=== PATIENT | male | born 1950 | race Caucasian/White ===

== ENCOUNTER 2018-11-03 17:04 | Inpatient (IN) | payer MEDICARE ==
[~2018-11-03] VITALS: Ht 172.7 cm; Wt 73.7 kg
[2018-11-03] MEDS ORDERED: DOCU100C28 PO (19:54)
[2018-11-03] MEDS ORDERED: LATA2.5D3 OS (19:54)
[2018-11-03] MEDS ORDERED: CHLO100T6 PO (19:54)
[2018-11-03] MEDS ORDERED: ASPI-630 PO (19:54)
[2018-11-03] MEDS ORDERED: OLAN5TAB9 PO (19:54)
[2018-11-03] MEDS ORDERED: TIMO10DR5 EACHEYE (19:54)
[2018-11-03] MEDS ORDERED: CHLO25TA4 PO (19:54)
[2018-11-03] MEDS ORDERED: SUCR1TAB35 PO (19:54)
[2018-11-03] MEDS ORDERED: POLY17PO5 PO (19:54)
[2018-11-03] MEDS ORDERED: OMEP20TA63 PO (19:54)
[2018-11-03] MEDS ORDERED: TAMS0.4C2 PO (19:54)
[2018-11-03] MEDS ORDERED: SENN-80 PO (19:54)
[2018-11-03] MEDS ORDERED: LEVE500T56 PO (19:54)
[2018-11-03] MEDS ORDERED: METO25TA2 PO (19:54)
[2018-11-03] MEDS ORDERED: LISI10TA2 PO (19:54)
[2018-11-03] MEDS ORDERED: TRAZ-85 PO (19:54)
[2018-11-03] MEDS ORDERED: PARO20TA99 PO (19:54)
[2018-11-03] MEDS ORDERED: ATOR20TA PO (19:54)
[2018-11-03] MEDS ORDERED: MAG HYDROX/AL HYDROX/SIMETH 30 ML ORAL.SUSP PO PRN (20:00)
[2018-11-03] MEDS ORDERED: MAGNESIUM HYDROXIDE 2,400 MG/30 ML ORAL.SUSP. PO PRN (20:00)
[2018-11-03] MEDS ORDERED: METHYL SALICYLATE/MENTHOL TOPICAL OINTMENT 29GM TUBE. TP PRN (20:00)
[2018-11-03] MEDS ORDERED: ACETAMINOPHEN 325 MG TABLET PO PRN (20:00)
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
[2018-11-03] MEDS ORDERED: traZODone 50 MG TABLET. PO PRN (20:15)
[2018-11-03] MEDS: OLANZapine 5 MG TABLET PO SCH (20:36)
[2018-11-03] MEDS: ATORVASTATIN CALCIUM 20 MG TABLET PO SCH (20:36)
[2018-11-03] MEDS: levETIRAcetam 500 MG TABLET PO SCH (20:36)
[2018-11-03] MEDS: SUCRALFATE 1 GM TABLET. PO SCH (20:36)
[2018-11-03] MEDS: DOCUSATE SODIUM 100 MG CAPSULE PO SCH (20:36)
[2018-11-03 20:41] LABS: BASO # 0.1 x10^3/uL (0.0-0.2); BASO % 1 % (0-3); EOS # 0.2 x10^3/uL (0.0-0.7); EOS % 3 % (0-3); HEMATOCRIT 39.8 % (39.0-53.0); HEMOGLOBIN 14.1 g/dL (13.0-17.5); LYMPH # 1.6 x10^3/uL (1.0-4.8); LYMPH % 26 % (24-48); MEAN CORPUSCULAR HEMOGLOBIN 34 pg (25-35); MEAN CORPUSCULAR HGB CONC 36 g/dL (31-37); MEAN CORPUSCULAR VOLUME 95 fL (79-100); MONO # 0.6 x10^3/uL (0.0-1.1); MONO % 9 % (0-9); NEUT # 3.8 x10^3uL (1.8-7.7); NEUT % 61 % (31-73); PLATELET COUNT 189 x10^3/uL (140-400); RED BLOOD COUNT 4.18 x10^6/uL (4.30-5.70); RED CELL DISTRIBUTION WIDTH 13.3 % (11.5-14.5); WHITE BLOOD COUNT 6.2 x10^3/uL (4.0-11.0)
[2018-11-03 20:55] LABS: ALBUMIN 2.9 g/dL (3.4-5.0); ALBUMIN/GLOBULIN RATIO 0.9 (1.0-1.7); CALCIUM 8.4 mg/dL (8.5-10.1); CREATININE 0.7 mg/dL (0.7-1.3); GFR 112.1; POTASSIUM 4.1 mmol/L (3.5-5.1); TOTAL BILIRUBIN 0.6 mg/dL (0.2-1.0)
[2018-11-03] MEDS: LATANOPROST 0.005% OPHTH SOLUTION 2.5ML BOTTLE. OS SCH (21:11)
[2018-11-03] MEDS: TIMOLOL 0.5% OPHTH SOLUTION 5ML BOTTLE. OU SCH (21:11)
[2018-11-03] MEDS: chlorproMAZINE HCL 25 MG TABLET PO SCH (21:12)
--- NOTE | 2018-11-03 22:42 | PDOC ---
Exam Note: Shahram Note: Please also refer to the separate dictated note~for this date of service dictated separately. Discussed the patient with Nursing staff reviewed the chart.~Reviewed interim history and current functioning. Reviewed vital signs,~ Labs/ Radiology~and current medications noted below. Continue current treatment with the changes noted in the dictated addendum note Assessment: Labs: Laboratory Tests Test 11/03/18 20:20 White Blood Count 6.2 x10^3/uL (4.0-11.0) Red Blood Count 4.18 x10^6/uL (4.30-5.70) L Hemoglobin 14.1 g/dL (13.0-17.5) Hematocrit 39.8 % (39.0-53.0) Mean Corpuscular Volume 95 fL (79-100) Mean Corpuscular Hemoglobin 34 pg (25-35) Mean Corpuscular Hemoglobin Concent 36 g/dL (31-37) Red Cell Distribution Width 13.3 % (11.5-14.5) Platelet Count 189 x10^3/uL (140-400) Neutrophils (%) (Auto) 61 % (31-73) Lymphocytes (%) (Auto) 26 % (24-48) Monocytes (%) (Auto) 9 % (0-9) Eosinophils (%) (Auto) 3 % (0-3) Basophils (%) (Auto) 1 % (0-3) Neutrophils # (Auto) 3.8 x10^3uL (1.8-7.7) Lymphocytes # (Auto) 1.6 x10^3/uL (1.0-4.8) Monocytes # (Auto) 0.6 x10^3/uL (0.0-1.1) Eosinophils # (Auto) 0.2 x10^3/uL (0.0-0.7) Basophils # (Auto) 0.1 x10^3/uL (0.0-0.2) Sodium Level 137 mmol/L (136-145) Potassium Level 4.1 mmol/L (3.5-5.1) Chloride Level 100 mmol/L (98-107) Carbon Dioxide Level 30 mmol/L (21-32) Anion Gap 7 (6-14) Blood Urea Nitrogen 12 mg/dL (8-26) Creatinine 0.7 mg/dL (0.7-1.3) Estimated GFR (Cockcroft-Gault) 112.1 BUN/Creatinine Ratio 17 (6-20) Glucose Level 108 mg/dL (70-99) H Calcium Level 8.4 mg/dL (8.5-10.1) L Magnesium Level 2.0 mg/dL (1.8-2.4) Total Bilirubin 0.6 mg/dL (0.2-1.0) Aspartate Amino Transferase (AST) 17 U/L (15-37) Alanine Aminotransferase (ALT) 23 U/L (16-63) Alkaline Phosphatase 65 U/L (46-116) Total Protein 6.0 g/dL (6.4-8.2) L Albumin 2.9 g/dL (3.4-5.0) L Albumin/Globulin Ratio 0.9 (1.0-1.7) L Current Medications: Meds: Current Medications Atorvastatin Calcium (Lipitor) 20 mg QHS PO Last administered on 11/03/18 20:36 ; Start 11/03/18 at 21:00 Chlorpromazine HCl (Thorazine) 25 mg TIDWMEALS PO ; Start 11/04/18 at 08:00 Lisinopril (Prinivil) 10 mg DAILY PO ; Start 11/04/18 at 09:00 Metoprolol Succinate (Toprol Xl) 25 mg DAILY PO ; Start 11/04/18 at 09:00 Tamsulosin HCl (Flomax) 0.4 mg DAILY PO ; Start 11/04/18 at 09:00 Aspirin (Children'S Aspirin) 81 mg DAILYWBKFT PO ; Start 11/04/18 at 08:00 Chlorpromazine HCl (Thorazine) 100 mg QHS PO Last administered on 11/03/18at 21: 12; Start 11/03/18 at 21:00 Docusate Sodium (Colace) 100 mg BID PO Last administered on 11/03/18 20:36; Start 11/03/18 at 21:00 Latanoprost (Xalatan) 1 drop QHS OS Last administered on 11/03/18 21:11; Start 11/03/18 at 21:00 Levetiracetam (Keppra) 500 mg BID PO Last administered on 11/03/18at 20:36; Start 11/03/18 at 21:00 Olanzapine (ZyPREXA) 5 mg BID PO Last administered on 11/03/18at 20:36; Start 11/03/18 at 21:00 Pantoprazole Sodium (Protonix) 40 mg DAILYAC PO ; Start 11/04/18 at 07:30 Paroxetine HCl (Paxil) 20 mg DAILY PO ; Start 11/04/18 at 09:00 Polyethylene Glycol (miraLAX) 17 gm DAILY PO ; Start 11/04/18 at 09:00 Sennosides (Senna) 8.6 mg DAILY PO ; Start 11/04/18 at 09:00 Sucralfate (Carafate) 1 gm QID PO Last administered on 11/03/18at 20:36; Start at 21:00 Timolol Maleate (Timoptic 0.5% [facility]) 1 drop BID OU Last administered on at 21:11; Start 11/03/18 at 21:00 Trazodone HCl (Desyrel) 50 mg PRN QHS PRN PO INSOMNIA; Start 11/03/18 at 20:15 Acetaminophen (Tylenol) 650 mg PRN Q6HRS PRN PO PAIN / TEMP; Start 11/03/18 at 20:00 Multi-Ingredient Ointment (Analgesic [place]) 1 avni PRN QID PRN TP MUSCLE PAIN; Start 11/03/18 at 20:00 Al Hydroxide/Mg Hydroxide (Mylanta Plus Xs) 15 ml PRN AFTMEALHC PRN PO DYSPEPSIA; Start 11/03/18 at 20:00 Magnesium Hydroxide (Milk Of Magnesia) 2,400 mg PRN QHS PRN PO CONSTIPATION; Start 11/03/18 at 20:00 Active Scripts Active Reported Trazodone Hcl 50 Mg Tablet 50 Mg PO PRN QHS PRN Timoptic (Timolol Maleate) 10 Ml Drops 1 Drop EACHEYE BID Tamsulosin Hcl 0.4 Mg Cap.er.24h 0.4 Mg PO DAILY Carafate (Sucralfate) 1 Gm Tablet 1 Gm PO QID Senna (Sennosides) 8.6 Mg Tablet 8.6 Mg PO DAILY Miralax (Polyethylene Glycol 3350) 17 Gm Powd.pack 1 Packet PO DAILY Paxil (Paroxetine Hcl) 20 Mg Tablet 20 Mg PO DAILY Prilosec Otc (Omeprazole Magnesium) 20 Mg Tablet.dr 40 Mg PO DAILY Olanzapine 5 Mg Tablet 5 Mg PO BID Toprol Xl (Metoprolol Succinate) 25 Mg Tab.er.24h 25 Mg PO DAILY Lisinopril 10 Mg Tablet 10 Mg PO DAILY Keppra (Levetiracetam) 500 Mg Tablet 500 Mg PO BID Latanoprost 2.5 Ml Drops 1 Drop OS QHS Docusate Sodium 100 Mg Capsule 100 Mg PO BID Chlorpromazine Hcl 100 Mg Tablet 100 Mg PO HS Chlorpromazine Hcl 25 Mg Tablet 25 Mg PO TIDWMEALS Lipitor (Atorvastatin Calcium) 20 Mg Tablet 20 Mg PO QHS Aspirin 81 Mg Tab.chew 81 Mg PO DAILY I have reviewed the current psychotropics carefully including drug interactions. Risk benefit ratio favors no change other than as noted in my dictated progress note. Diagnosis: Problems: (1) Anxiety disorder (2) Bipolar affective disorder, mixed (3) Major depressive disorder, recurrent episode (4) Mild cognitive impairment ANASTACIO REED MD Nov 03, 2018 22:42
[2018-11-03 23:02] VITALS: BP 96/61
[2018-11-04 06:35] VITALS: BP 106/70
[2018-11-04] MEDS ORDERED: PANTOPRAZOLE 40 MG TABLET. PO SCH (07:30)
[2018-11-04] MEDS: DOCUSATE SODIUM 100 MG CAPSULE PO SCH ×2 (08:15→21:32)
[2018-11-04] MEDS: SUCRALFATE 1 GM TABLET. PO SCH ×4 (08:15→21:33)
[2018-11-04] MEDS: levETIRAcetam 500 MG TABLET PO SCH ×2 (08:15→21:33)
[2018-11-04] MEDS: OLANZapine 5 MG TABLET PO SCH ×2 (08:15→21:33)
[2018-11-04] MEDS: TIMOLOL 0.5% OPHTH SOLUTION 5ML BOTTLE. OU SCH ×2 (08:15→21:33)
[2018-11-04] MEDS: TAMSULOSIN 0.4 MG CAP.ER.24H. PO SCH (08:20)
[2018-11-04] MEDS: METOPROLOL SUCC 24HR ER 25 MG TAB.ER.24H. PO SCH (08:20)
[2018-11-04] MEDS: chlorproMAZINE HCL 25 MG TABLET PO SCH ×4 (08:20→21:31)
[2018-11-04] MEDS: ASPIRIN 81 MG TAB.CHEW PO SCH (08:20)
[2018-11-04] MEDS: POLYETHYLENE GLYCOL 3350 17 GM PACKET. PO SCH (08:23)
[2018-11-04] MEDS: PARoxetine 20 MG TABLET PO SCH (08:23)
[2018-11-04] MEDS: LISINOPRIL 10 MG TABLET PO SCH (08:23)
[2018-11-04] MEDS: SENNOSIDES 8.6 MG TABLET PO SCH (08:24)
[2018-11-04 10:22] LABS: THYROID STIM HORMONE (TSH) 1.039 uIU/mL (0.358-3.740)
[2018-11-04 11:10] LABS: THYROXINE 5.9 ug/dL (4.5-12.0)
[2018-11-04 16:49] VITALS: BP 85/55
[2018-11-04] MEDS: ATORVASTATIN CALCIUM 20 MG TABLET PO SCH (21:32)
[2018-11-04] MEDS: LATANOPROST 0.005% OPHTH SOLUTION 2.5ML BOTTLE. OS SCH (21:34)
--- NOTE | 2018-11-04 22:02 | PDOC ---
Exam Note: Shahram Note: Please also refer to the separate dictated note~for this date of service dictated separately.~Patient seen individually. Discussed the patient with Nursing staff reviewed the chart.~Reviewed interim history and current functioning. Reviewed vital signs,~Labs/ Radiology~and current medications noted below. Continue current treatment with the changes noted in the dictated addendum note Assessment: Vital Signs: Vital Signs Date Time Temp Pulse Resp B/P (MAP) Pulse Ox O2 Delivery O2 Flow Rate FiO2 11/04/18 16:49 97.6 76 20 85/55 (65) 95 11/04/18 06:35 Room Air I&O Intake and Output 11/04/18 07:01 Output Total 600 ml Balance -600 ml Output Urine Total 600 ml Current Medications: Meds: Current Medications Atorvastatin Calcium (Lipitor) 20 mg QHS PO Last administered on 11/04/18 21:32 ; Start 11/03/18 at 21:00 Chlorpromazine HCl (Thorazine) 25 mg TIDWMEALS PO Last administered on 18:05; Start 11/04/18 at 08:00 Lisinopril (Prinivil) 10 mg DAILY PO Last administered on 11/04/18 08:23; Start 11/04/18 at 09:00 Metoprolol Succinate (Toprol Xl) 25 mg DAILY PO Last administered on 11/04/18 08:20; Start 11/04/18 at 09:00 Tamsulosin HCl (Flomax) 0.4 mg DAILY PO Last administered on 11/04/18 08:20; Start 11/04/18 at 09:00 Aspirin (Children'S Aspirin) 81 mg DAILYWBKFT PO Last administered on 11/04/18 08:20; Start 11/04/18 at 08:00 Chlorpromazine HCl (Thorazine) 100 mg QHS PO Last administered on 11/04/18 21: 31; Start 11/03/18 at 21:00 Docusate Sodium (Colace) 100 mg BID PO Last administered on 11/04/18 21:32; Start 11/03/18 at 21:00 Latanoprost (Xalatan) 1 drop QHS OS Last administered on 11/04/18 21:34; Start 11/03/18 at 21:00 Levetiracetam (Keppra) 500 mg BID PO Last administered on 11/04/18 21:33; Start 11/03/18 at 21:00 Olanzapine (ZyPREXA) 5 mg BID PO Last administered on 11/04/18 21:33; Start 11/03/18 at 21:00 Pantoprazole Sodium (Protonix) 40 mg DAILYAC PO Last administered on 11/04/18 08:23; Start 11/04/18 at 07:30; Stop 11/04/18 at 10:39; Status DC Paroxetine HCl (Paxil) 20 mg DAILY PO Last administered on 11/04/18 08:23; Start 11/04/18 at 09:00 Polyethylene Glycol (miraLAX) 17 gm DAILY PO Last administered on 11/04/18 08: 23; Start 11/04/18 at 09:00 Sennosides (Senna) 8.6 mg DAILY PO Last administered on 11/04/18 08:24; Start 11/04/18 at 09:00 Sucralfate (Carafate) 1 gm QID PO Last administered on 11/04/18 18:05; Start at 21:00; Stop 11/04/18 at 18:07; Status DC Timolol Maleate (Timoptic 0.5% [facility]) 1 drop BID OU Last administered on 21:33; Start 11/03/18 at 21:00 Trazodone HCl (Desyrel) 50 mg PRN QHS PRN PO INSOMNIA; Start 11/03/18 at 20:15 Acetaminophen (Tylenol) 650 mg PRN Q6HRS PRN PO PAIN / TEMP Last administered on 11/04/18at 13:31; Start 11/03/18 at 20:00 Multi-Ingredient Ointment (Analgesic [place]) 1 avni PRN QID PRN TP MUSCLE PAIN; Start 11/03/18 at 20:00 Al Hydroxide/Mg Hydroxide (Mylanta Plus Xs) 15 ml PRN AFTMEALHC PRN PO DYSPEPSIA; Start 11/03/18 at 20:00 Magnesium Hydroxide (Milk Of Magnesia) 2,400 mg PRN QHS PRN PO CONSTIPATION; Start 11/03/18 at 20:00 Influenza Virus Vaccine (Afluria Trivalent [id number] Syringe) 0.5 ml ONCE ONCE VAX IM ; Start 11/04/18 at 09:00; Stop 11/04/18 at 09:01; Status Cancel Pantoprazole Sodium (Protonix) 40 mg DAILY06 PO ; Start 11/05/18 at 06:00 Neomycin/ Polymyxin/ Bacitracin (Triple Antibiotic) 1 avni TID TP ; Start at 09:00 Sucralfate (Carafate) 1 gm QIDACHS PO Last administered on 11/04/18at 21:33; Start 11/04/18 at 21:00 Active Scripts Active Reported Trazodone Hcl 50 Mg Tablet 50 Mg PO PRN QHS PRN Timoptic (Timolol Maleate) 10 Ml Drops 1 Drop EACHEYE BID Tamsulosin Hcl 0.4 Mg Cap.er.24h 0.4 Mg PO DAILY Carafate (Sucralfate) 1 Gm Tablet 1 Gm PO QID Senna (Sennosides) 8.6 Mg Tablet 8.6 Mg PO DAILY Miralax (Polyethylene Glycol 3350) 17 Gm Powd.pack 1 Packet PO DAILY Paxil (Paroxetine Hcl) 20 Mg Tablet 20 Mg PO DAILY Prilosec Otc (Omeprazole Magnesium) 20 Mg Tablet.dr 40 Mg PO DAILY Olanzapine 5 Mg Tablet 5 Mg PO BID Toprol Xl (Metoprolol Succinate) 25 Mg Tab.er.24h 25 Mg PO DAILY Lisinopril 10 Mg Tablet 10 Mg PO DAILY Keppra (Levetiracetam) 500 Mg Tablet 500 Mg PO BID Latanoprost 2.5 Ml Drops 1 Drop OS QHS Docusate Sodium 100 Mg Capsule 100 Mg PO BID Chlorpromazine Hcl 100 Mg Tablet 100 Mg PO HS Chlorpromazine Hcl 25 Mg Tablet 25 Mg PO TIDWMEALS Lipitor (Atorvastatin Calcium) 20 Mg Tablet 20 Mg PO QHS Aspirin 81 Mg Tab.chew 81 Mg PO DAILY I have reviewed the current psychotropics carefully including drug interactions. Risk benefit ratio favors no change other than as noted in my dictated progress note. Diagnosis: Problems: (1) Anxiety disorder (2) Bipolar affective disorder, mixed (3) Major depressive disorder, recurrent episode (4) Mild cognitive impairment ANASTACIO REED MD Nov 04, 2018 22:02
[2018-11-05] MEDS: PANTOPRAZOLE 40 MG TABLET. PO SCH (06:00)
[2018-11-05 06:52] VITALS: BP 112/74
[2018-11-05] MEDS: ASPIRIN 81 MG TAB.CHEW PO SCH (07:55)
[2018-11-05] MEDS: SENNOSIDES 8.6 MG TABLET PO SCH (07:55)
[2018-11-05] MEDS: TAMSULOSIN 0.4 MG CAP.ER.24H. PO SCH (07:55)
[2018-11-05] MEDS: POLYETHYLENE GLYCOL 3350 17 GM PACKET. PO SCH (07:55)
[2018-11-05] MEDS: DOCUSATE SODIUM 100 MG CAPSULE PO SCH ×2 (07:55→19:30)
[2018-11-05] MEDS: SUCRALFATE 1 GM TABLET. PO SCH ×4 (07:55→19:30)
[2018-11-05] MEDS: METOPROLOL SUCC 24HR ER 25 MG TAB.ER.24H. PO SCH (07:56)
[2018-11-05] MEDS: PARoxetine 20 MG TABLET PO SCH (07:56)
[2018-11-05] MEDS: LISINOPRIL 10 MG TABLET PO SCH (07:56)
[2018-11-05] MEDS: levETIRAcetam 500 MG TABLET PO SCH ×2 (07:56→19:30)
[2018-11-05] MEDS: OLANZapine 5 MG TABLET PO SCH ×2 (07:56→19:30)
[2018-11-05] MEDS: TIMOLOL 0.5% OPHTH SOLUTION 5ML BOTTLE. OU SCH ×2 (07:57→19:32)
[2018-11-05] MEDS: chlorproMAZINE HCL 25 MG TABLET PO SCH ×4 (07:57→19:34)
[2018-11-05] MEDS: NEOMYCIN/BACITRAC/POLY TOPICAL OINTMENT 28GM TUBE. TP SCH ×3 (09:00→19:34)
[2018-11-05] MEDS: LORazepam 0.5 MG TABLET PO PRN (09:53)
[2018-11-05 17:06] VITALS: BP 112/69
[2018-11-05] MEDS: ATORVASTATIN CALCIUM 20 MG TABLET PO SCH (19:30)
[2018-11-05] MEDS: LATANOPROST 0.005% OPHTH SOLUTION 2.5ML BOTTLE. OS SCH (19:32)
[2018-11-05] MEDS: cloZAPine 25 MG TABLET PO SCH (19:49)
--- NOTE | 2018-11-05 22:49 | PDOC ---
Exam Note: Shahram Note: Please also refer to the separate dictated note~for this date of service dictated separately.~Patient seen individually. Discussed the patient with Nursing staff reviewed the chart.~Reviewed interim history and current functioning. Reviewed vital signs,~Labs/ Radiology~and current medications noted below. Continue current treatment with the changes noted in the dictated addendum note Assessment: Vital Signs: Vital Signs Date Time Temp Pulse Resp B/P (MAP) Pulse Ox O2 Delivery O2 Flow Rate FiO2 11/05/18 17:06 97.9 90 20 112/69 (83) 97 11/05/18 06:52 Room Air I&O Intake and Output 11/05/18 07:01 Intake Total 1325 ml Balance 1325 ml Intake Oral 1325 ml Current Medications: Meds: Current Medications Atorvastatin Calcium (Lipitor) 20 mg QHS PO Last administered on 11/05/18 19: 30; Start 11/03/18 at 21:00 Chlorpromazine HCl (Thorazine) 25 mg TIDWMEALS PO Last administered on 17:46; Start 11/04/18 at 08:00 Lisinopril (Prinivil) 10 mg DAILY PO Last administered on 11/05/18 07:56; Start 11/04/18 at 09:00 Metoprolol Succinate (Toprol Xl) 25 mg DAILY PO Last administered on 11/05/18 07:56; Start 11/04/18 at 09:00 Tamsulosin HCl (Flomax) 0.4 mg DAILY PO Last administered on 11/05/18 07:55; Start 11/04/18 at 09:00 Aspirin (Children'S Aspirin) 81 mg DAILYWBKFT PO Last administered on 07:55; Start 11/04/18 at 08:00 Chlorpromazine HCl (Thorazine) 100 mg QHS PO Last administered on 11/05/18 19: 34; Start 11/03/18 at 21:00 Docusate Sodium (Colace) 100 mg BID PO Last administered on 11/05/18 19:30; Start 11/03/18 at 21:00 Latanoprost (Xalatan) 1 drop QHS OS Last administered on 11/05/18 19:32; Start 11/03/18 at 21:00 Levetiracetam (Keppra) 500 mg BID PO Last administered on 11/05/18 19:30; Start 11/03/18 at 21:00 Olanzapine (ZyPREXA) 5 mg BID PO Last administered on 11/05/18 19:30; Start at 21:00 Pantoprazole Sodium (Protonix) 40 mg DAILYAC PO Last administered on 11/04/18 08:23; Start 11/04/18 at 07:30; Stop 11/04/18 at 10:39; Status DC Paroxetine HCl (Paxil) 20 mg DAILY PO Last administered on 11/05/18 07:56; Start 11/04/18 at 09:00 Polyethylene Glycol (miraLAX) 17 gm DAILY PO Last administered on 11/05/18 07: 55; Start 11/04/18 at 09:00 Sennosides (Senna) 8.6 mg DAILY PO Last administered on 11/05/18 07:55; Start 11/04/18 at 09:00 Sucralfate (Carafate) 1 gm QID PO Last administered on 11/04/18 18:05; Start at 21:00; Stop 11/04/18 at 18:07; Status DC Timolol Maleate (Timoptic 0.5% [facility]) 1 drop BID OU Last administered on 19:32; Start 11/03/18 at 21:00 Trazodone HCl (Desyrel) 50 mg PRN QHS PRN PO INSOMNIA; Start 11/03/18 at 20:15 Acetaminophen (Tylenol) 650 mg PRN Q6HRS PRN PO PAIN / TEMP Last administered on 11/04/18at 13:31; Start 11/03/18 at 20:00 Multi-Ingredient Ointment (Analgesic [place]) 1 avni PRN QID PRN TP MUSCLE PAIN; Start 11/03/18 at 20:00 Al Hydroxide/Mg Hydroxide (Mylanta Plus Xs) 15 ml PRN AFTMEALHC PRN PO DYSPEPSIA; Start 11/03/18 at 20:00 Magnesium Hydroxide (Milk Of Magnesia) 2,400 mg PRN QHS PRN PO CONSTIPATION; Start 11/03/18 at 20:00 Influenza Virus Vaccine (Afluria Trivalent [id number] Syringe) 0.5 ml ONCE ONCE VAX IM ; Start 11/04/18 at 09:00; Stop 11/04/18 at 09:01; Status Cancel Pantoprazole Sodium (Protonix) 40 mg DAILY06 PO Last administered on 11/05/18at 06:00; Start 11/05/18 at 06:00 Neomycin/ Polymyxin/ Bacitracin (Triple Antibiotic) 1 avni TID TP Last administered on 11/05/18at 19:34; Start 11/05/18 at 09:00 Sucralfate (Carafate) 1 gm QIDACHS PO Last administered on 11/05/18at 19:30; Start 11/04/18 at 21:00 Lorazepam (Ativan) 0.5 mg PRN Q2HR PRN PO ANXIETY / AGITATION Last administered on 11/05/18at 09:53; Start 11/05/18 at 09:15 Clozapine (Clozaril) 25 mg HS PO Last administered on 11/05/18at 19:49; Start at 21:00 Active Scripts Active Reported Trazodone Hcl 50 Mg Tablet 50 Mg PO PRN QHS PRN Timoptic (Timolol Maleate) 10 Ml Drops 1 Drop EACHEYE BID Tamsulosin Hcl 0.4 Mg Cap.er.24h 0.4 Mg PO DAILY Carafate (Sucralfate) 1 Gm Tablet 1 Gm PO QID Senna (Sennosides) 8.6 Mg Tablet 8.6 Mg PO DAILY Miralax (Polyethylene Glycol 3350) 17 Gm Powd.pack 1 Packet PO DAILY Paxil (Paroxetine Hcl) 20 Mg Tablet 20 Mg PO DAILY Prilosec Otc (Omeprazole Magnesium) 20 Mg Tablet.dr 40 Mg PO DAILY Olanzapine 5 Mg Tablet 5 Mg PO BID Toprol Xl (Metoprolol Succinate) 25 Mg Tab.er.24h 25 Mg PO DAILY Lisinopril 10 Mg Tablet 10 Mg PO DAILY Keppra (Levetiracetam) 500 Mg Tablet 500 Mg PO BID Latanoprost 2.5 Ml Drops 1 Drop OS QHS Docusate Sodium 100 Mg Capsule 100 Mg PO BID Chlorpromazine Hcl 100 Mg Tablet 100 Mg PO HS Chlorpromazine Hcl 25 Mg Tablet 25 Mg PO TIDWMEALS Lipitor (Atorvastatin Calcium) 20 Mg Tablet 20 Mg PO QHS Aspirin 81 Mg Tab.chew 81 Mg PO DAILY I have reviewed the current psychotropics carefully including drug interactions. Risk benefit ratio favors no change other than as noted in my dictated progress note. Diagnosis: Problems: (1) Anxiety disorder (2) Bipolar affective disorder, mixed (3) Major depressive disorder, recurrent episode (4) Mild cognitive impairment ANASTACIO REED MD Nov 05, 2018 22:49
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
[2018-11-06] MEDS: PANTOPRAZOLE 40 MG TABLET. PO SCH (05:31)
[2018-11-06 06:10] VITALS: BP 146/94
[2018-11-06 07:37] LABS: BASO % 1 % (0-3); EOS # 0.1 x10^3/uL (0.0-0.7); EOS % 2 % (0-3); HEMATOCRIT 40.4 % (39.0-53.0); HEMOGLOBIN 14.4 g/dL (13.0-17.5); LYMPH # 1.2 x10^3/uL (1.0-4.8); LYMPH % 22 % (24-48); MEAN CORPUSCULAR HEMOGLOBIN 34 pg (25-35); MEAN CORPUSCULAR HGB CONC 36 g/dL (31-37); MEAN CORPUSCULAR VOLUME 94 fL (79-100); MONO # 0.5 x10^3/uL (0.0-1.1); MONO % 9 % (0-9); NEUT # 3.8 x10^3uL (1.8-7.7); NEUT % 66 % (31-73); PLATELET COUNT 225 x10^3/uL (140-400); RED CELL DISTRIBUTION WIDTH 13.8 % (11.5-14.5); WHITE BLOOD COUNT 5.7 x10^3/uL (4.0-11.0)
[2018-11-06] MEDS: LISINOPRIL 10 MG TABLET PO SCH (07:40)
[2018-11-06] MEDS: METOPROLOL SUCC 24HR ER 25 MG TAB.ER.24H. PO SCH (07:40)
[2018-11-06] MEDS: SENNOSIDES 8.6 MG TABLET PO SCH (07:40)
[2018-11-06] MEDS: SUCRALFATE 1 GM TABLET. PO SCH ×4 (07:41→20:40)
[2018-11-06] MEDS: ASPIRIN 81 MG TAB.CHEW PO SCH (07:41)
[2018-11-06] MEDS: POLYETHYLENE GLYCOL 3350 17 GM PACKET. PO SCH (07:41)
[2018-11-06] MEDS: PARoxetine 20 MG TABLET PO SCH (07:41)
[2018-11-06] MEDS: TAMSULOSIN 0.4 MG CAP.ER.24H. PO SCH (07:41)
[2018-11-06] MEDS: levETIRAcetam 500 MG TABLET PO SCH ×2 (07:41→20:40)
[2018-11-06] MEDS: DOCUSATE SODIUM 100 MG CAPSULE PO SCH ×2 (07:41→20:40)
[2018-11-06] MEDS: OLANZapine 5 MG TABLET PO SCH ×2 (07:41→20:40)
[2018-11-06] MEDS: chlorproMAZINE HCL 25 MG TABLET PO SCH ×4 (07:49→20:42)
[2018-11-06] MEDS: TIMOLOL 0.5% OPHTH SOLUTION 5ML BOTTLE. OU SCH (07:50)
[2018-11-06] MEDS: NEOMYCIN/BACITRAC/POLY TOPICAL OINTMENT 28GM TUBE. TP SCH ×3 (07:51→21:00)
[2018-11-06 07:52] LABS: ALBUMIN 3.4 g/dL (3.4-5.0); CALCIUM 9.1 mg/dL (8.5-10.1); CREATININE 0.7 mg/dL (0.7-1.3); GFR 112.1; TOTAL BILIRUBIN 0.7 mg/dL (0.2-1.0); TOTAL PROTEIN 6.9 g/dL (6.4-8.2)
[2018-11-06 16:40] VITALS: BP 116/70
[2018-11-06] MEDS: ATORVASTATIN CALCIUM 20 MG TABLET PO SCH (20:40)
[2018-11-06] MEDS: cloZAPine 25 MG TABLET PO SCH (20:44)
--- NOTE | 2018-11-06 21:32 | PN ---
DATE: 11/05/2018 PSYCHIATRIC PROGRESS NOTE This late entry 11/05/2018 covers elements not covered in my initial note. SUBJECTIVE: I met with the patient in the evening. The patient slept 4-1/2 hours previous night. shared some information that he has had some sundowning and worsening confusion in the evening with short-term memory deficits. We will have neuropsychological assessment with Dr. Espinoza. Ambulation impaired, in wheelchair. No CV, , pulmonary, eye system symptoms on review. Nursing staff had paged me as an emergency in the morning. The patient was much more anxious and we did start him on p.o. Ativan p.r.n. He had been on IM Ativan p.r.n. at [facility]. He has a NOTED ALLERGY TO BENZODIAZEPINES, but on questioning, this does not seem to be accurate. REVIEW OF SYSTEMS: Ambulation impaired, in wheelchair. No CV, , pulmonary, eye system symptoms on review. MENTAL STATUS EXAM: Oriented to himself and situation. Speech coherent, has some latency. Abstraction fair, computation impaired, language function intact. Mood and affect still somewhat anxious, labile at times. LABORATORY DATA: Reviewed. IMPRESSION: Bipolar 1 disorder, mixed with psychotic features; anxiety disorder, unspecified; psychotic disorder, unspecified; cognitive disorder, unspecified. PLAN: No change from initial note, but we will increase the Clozaril post labs on 11/06/2018. Continue Ativan p.r.n. ANASTACIO REED MD DR: CRYSTAL/nicole JOB#: [id number] / [id number]
[2018-11-07] MEDS: LATANOPROST 0.005% OPHTH SOLUTION 2.5ML BOTTLE. OS SCH ×2 (03:01→21:31)
[2018-11-07] MEDS: TIMOLOL 0.5% OPHTH SOLUTION 5ML BOTTLE. OU SCH ×3 (03:01→21:31)
[2018-11-07 05:47] VITALS: BP 145/89
[2018-11-07] MEDS: PANTOPRAZOLE 40 MG TABLET. PO SCH (05:50)
[2018-11-07] MEDS: DOCUSATE SODIUM 100 MG CAPSULE PO SCH ×2 (07:27→21:10)
[2018-11-07] MEDS: chlorproMAZINE HCL 25 MG TABLET PO SCH ×4 (07:27→21:12)
[2018-11-07] MEDS: TAMSULOSIN 0.4 MG CAP.ER.24H. PO SCH (07:28)
[2018-11-07] MEDS: OLANZapine 5 MG TABLET PO SCH ×2 (07:28→21:10)
[2018-11-07] MEDS: PARoxetine 20 MG TABLET PO SCH (07:28)
[2018-11-07] MEDS: SENNOSIDES 8.6 MG TABLET PO SCH (07:28)
[2018-11-07] MEDS: SUCRALFATE 1 GM TABLET. PO SCH ×4 (07:28→21:10)
[2018-11-07] MEDS: METOPROLOL SUCC 24HR ER 25 MG TAB.ER.24H. PO SCH (07:28)
[2018-11-07] MEDS: levETIRAcetam 500 MG TABLET PO SCH ×2 (07:28→21:10)
[2018-11-07] MEDS: ASPIRIN 81 MG TAB.CHEW PO SCH (07:29)
[2018-11-07] MEDS: POLYETHYLENE GLYCOL 3350 17 GM PACKET. PO SCH (07:29)
[2018-11-07] MEDS: LISINOPRIL 10 MG TABLET PO SCH (07:29)
[2018-11-07] MEDS: NEOMYCIN/BACITRAC/POLY TOPICAL OINTMENT 28GM TUBE. TP SCH ×3 (07:36→21:00)
--- NOTE | 2018-11-07 09:28 | PDOC ---
Exam Note: Shahram Note: Late entry for DOS 11.06.2018. Please also refer to the separate dictated note~ for this date of service dictated separately.~Patient seen individually. Discussed the patient with Nursing staff reviewed the chart.~Reviewed interim history and current functioning. Reviewed vital signs,~Labs/ Radiology~and current medications noted below. Continue current treatment with the changes noted in the dictated addendum note Assessment: Vital Signs: VS - Last 72 Hours, by Label Date Time Temp Pulse Resp B/P (MAP) Pulse Ox O2 Delivery O2 Flow Rate FiO2 11/07/18 07:29 85 145/89 11/07/18 07:28 85 145/89 11/07/18 05:47 98.2 85 21 145/89 (107) 96 BiPAP/CPAP 11/06/18 16:40 98.4 77 18 116/70 (85) 97 11/06/18 07:40 81 146/94 11/06/18 07:40 81 146/94 11/06/18 06:10 98.2 81 18 146/94 (111) 95 11/05/18 17:06 97.9 90 20 112/69 (83) 97 11/05/18 07:56 83 112/74 11/05/18 07:56 83 112/74 11/05/18 06:52 97.9 83 16 112/74 (87) 95 Room Air 11/04/18 16:49 97.6 76 20 85/55 (65) 95 Vital Signs Date Time Temp Pulse Resp B/P (MAP) Pulse Ox O2 Delivery O2 Flow Rate FiO2 11/07/18 07:29 85 145/89 11/07/18 05:47 98.2 21 96 BiPAP/CPAP I&O Intake and Output 11/07/18 07:00 Intake Total 960 ml Output Total 1800 ml Balance -840 ml Intake Oral 960 ml Output Urine Total 1800 ml Current Medications: Meds: Current Medications Atorvastatin Calcium (Lipitor) 20 mg QHS PO Last administered on 11/06/18at 20: 40; Start 11/03/18 at 21:00 Chlorpromazine HCl (Thorazine) 25 mg TIDWMEALS PO Last administered on at 07:27; Start 11/04/18 at 08:00 Lisinopril (Prinivil) 10 mg DAILY PO Last administered on 11/07/18 07:29; Start 11/04/18 at 09:00 Metoprolol Succinate (Toprol Xl) 25 mg DAILY PO Last administered on 11/07/18 07:28; Start 11/04/18 at 09:00 Tamsulosin HCl (Flomax) 0.4 mg DAILY PO Last administered on 11/07/18 07:28; Start 11/04/18 at 09:00 Aspirin (Children'S Aspirin) 81 mg DAILYWBKFT PO Last administered on 07:29; Start 11/04/18 at 08:00 Chlorpromazine HCl (Thorazine) 100 mg QHS PO Last administered on 11/06/18 20: 42; Start 11/03/18 at 21:00 Docusate Sodium (Colace) 100 mg BID PO Last administered on 11/07/18 07:27; Start 11/03/18 at 21:00 Latanoprost (Xalatan) 1 drop QHS OS Last administered on 11/07/18 03:01; Start 11/03/18 at 21:00 Levetiracetam (Keppra) 500 mg BID PO Last administered on 11/07/18 07:28; Start 11/03/18 at 21:00 Olanzapine (ZyPREXA) 5 mg BID PO Last administered on 11/07/18 07:28; Start at 21:00 Pantoprazole Sodium (Protonix) 40 mg DAILYAC PO Last administered on 11/04/18 08:23; Start 11/04/18 at 07:30; Stop 11/04/18 at 10:39; Status DC Paroxetine HCl (Paxil) 20 mg DAILY PO Last administered on 11/07/18 07:28; Start 11/04/18 at 09:00 Polyethylene Glycol (miraLAX) 17 gm DAILY PO Last administered on 11/07/18 07: 29; Start 11/04/18 at 09:00 Sennosides (Senna) 8.6 mg DAILY PO Last administered on 11/07/18 07:28; Start 11/04/18 at 09:00 Sucralfate (Carafate) 1 gm QID PO Last administered on 11/04/18 18:05; Start at 21:00; Stop 11/04/18 at 18:07; Status DC Timolol Maleate (Timoptic 0.5% Oph) 1 drop BID OU Last administered on at 07:30; Start 11/03/18 at 21:00 Trazodone HCl (Desyrel) 50 mg PRN QHS PRN PO INSOMNIA; Start 11/03/18 at 20:15 Acetaminophen (Tylenol) 650 mg PRN Q6HRS PRN PO PAIN / TEMP Last administered on 11/04/18at 13:31; Start 11/03/18 at 20:00 Multi-Ingredient Ointment (Analgesic [place]) 1 avni PRN QID PRN TP MUSCLE PAIN; Start 11/03/18 at 20:00 Al Hydroxide/Mg Hydroxide (Mylanta Plus Xs) 15 ml PRN AFTMEALHC PRN PO DYSPEPSIA; Start 11/03/18 at 20:00 Magnesium Hydroxide (Milk Of Magnesia) 2,400 mg PRN QHS PRN PO CONSTIPATION; Start 11/03/18 at 20:00 Influenza Virus Vaccine (Afluria Trivalent [id number] Syringe) 0.5 ml ONCE ONCE VAX IM ; Start 11/04/18 at 09:00; Stop 11/04/18 at 09:01; Status Cancel Pantoprazole Sodium (Protonix) 40 mg DAILY06 PO Last administered on 11/07/18at 05:50; Start 11/05/18 at 06:00 Neomycin/ Polymyxin/ Bacitracin (Triple Antibiotic) 1 avni TID TP Last administered on 11/07/18 07:36; Start 11/05/18 at 09:00 Sucralfate (Carafate) 1 gm QIDACHS PO Last administered on 11/07/18 07:28; Start 11/04/18 at 21:00 Lorazepam (Ativan) 0.5 mg PRN Q2HR PRN PO ANXIETY / AGITATION Last administered on 11/05/18at 09:53; Start 11/05/18 at 09:15 Clozapine (Clozaril) 25 mg HS PO Last administered on 11/06/18at 20:44; Start at 21:00; Stop 11/08/18 at 06:00 Clozapine (Clozaril) 50 mg QHS PO ; Start 11/08/18 at 21:00 Active Scripts Active Reported Trazodone Hcl 50 Mg Tablet 50 Mg PO PRN QHS PRN Timoptic (Timolol Maleate) 10 Ml Drops 1 Drop EACHEYE BID Tamsulosin Hcl 0.4 Mg Cap.er.24h 0.4 Mg PO DAILY Carafate (Sucralfate) 1 Gm Tablet 1 Gm PO QID Senna (Sennosides) 8.6 Mg Tablet 8.6 Mg PO DAILY Miralax (Polyethylene Glycol 3350) 17 Gm Powd.pack 1 Packet PO DAILY Paxil (Paroxetine Hcl) 20 Mg Tablet 20 Mg PO DAILY Prilosec Otc (Omeprazole Magnesium) 20 Mg Tablet.dr 40 Mg PO DAILY Olanzapine 5 Mg Tablet 5 Mg PO BID Toprol Xl (Metoprolol Succinate) 25 Mg Tab.er.24h 25 Mg PO DAILY Lisinopril 10 Mg Tablet 10 Mg PO DAILY Keppra (Levetiracetam) 500 Mg Tablet 500 Mg PO BID Latanoprost 2.5 Ml Drops 1 Drop OS QHS Docusate Sodium 100 Mg Capsule 100 Mg PO BID Chlorpromazine Hcl 100 Mg Tablet 100 Mg PO HS Chlorpromazine Hcl 25 Mg Tablet 25 Mg PO TIDWMEALS Lipitor (Atorvastatin Calcium) 20 Mg Tablet 20 Mg PO QHS Aspirin 81 Mg Tab.chew 81 Mg PO DAILY I have reviewed the current psychotropics carefully including drug interactions. Risk benefit ratio favors no change other than as noted in my dictated progress note. Diagnosis: Problems: (1) Anxiety disorder (2) Bipolar affective disorder, mixed (3) Major depressive disorder, recurrent episode (4) Mild cognitive impairment ANASTACIO REED MD Nov 07, 2018 09:28
[2018-11-07 15:13] VITALS: BP 112/76
[2018-11-07] MEDS: LORazepam 0.5 MG TABLET PO PRN (16:00)
[2018-11-07] MEDS: ATORVASTATIN CALCIUM 20 MG TABLET PO SCH (21:10)
[2018-11-07] MEDS: cloZAPine 25 MG TABLET PO SCH (21:10)
--- NOTE | 2018-11-07 21:45 | PN ---
DATE: 11/06/2018 This late entry for 11/06/2018 covers elements not covered in my initial note. SUBJECTIVE: I met with the patient in the evening. The patient slept 7 hours previous night. Per nursing report, he makes up stories and at times withdraws, would not eat or would not talk till staff intervenes. Absolute neutrophil count is unremarkable. REVIEW OF SYSTEMS: Ambulation impaired, in wheelchair. No CV, , pulmonary, eye system symptoms on review. MENTAL STATUS EXAM: Oriented to himself, situations. Speech moderate latency, often responses monosyllabic. Abstraction fair, computation impaired, language function intact, attention span short. Mood and affect somewhat withdrawn. LABORATORY DATA: Reviewed. IMPRESSION: Bipolar 1 disorder, mixed with psychotic features; anxiety disorder, unspecified; impulse control disorder, unspecified. PLAN: Continue Clozaril 25 mg at bedtime, but on the increased to 50 mg at bedtime. Rest unchanged from initial note. Check weekly CBC and absolute neutrophil. MAN Villa REED MD DR: CRYSTAL/nicole JOB#: [id number] / [id number]
--- NOTE | 2018-11-07 22:44 | PDOC ---
Exam Note: Shahram Note: Please also refer to the separate dictated note~for this date of service dictated separately.~Patient seen individually. Discussed the patient with Nursing staff reviewed the chart.~Reviewed interim history and current functioning. Reviewed vital signs,~Labs/ Radiology~and current medications noted below. Continue current treatment with the changes noted in the dictated addendum note Assessment: Vital Signs: Vital Signs Date Time Temp Pulse Resp B/P (MAP) Pulse Ox O2 Delivery O2 Flow Rate FiO2 11/07/18 15:13 98.4 83 18 112/76 (88) 97 11/07/18 05:47 BiPAP/CPAP I&O Intake and Output 11/07/18 06:59 Intake Total 960 ml Output Total 1800 ml Balance -840 ml Intake Oral 960 ml Output Urine Total 1800 ml Current Medications: Meds: Current Medications Atorvastatin Calcium (Lipitor) 20 mg QHS PO Last administered on 11/07/18 21: 10; Start 11/03/18 at 21:00 Chlorpromazine HCl (Thorazine) 25 mg TIDWMEALS PO Last administered on 17:14; Start 11/04/18 at 08:00 Lisinopril (Prinivil) 10 mg DAILY PO Last administered on 11/07/18 07:29; Start 11/04/18 at 09:00 Metoprolol Succinate (Toprol Xl) 25 mg DAILY PO Last administered on 11/07/18 07:28; Start 11/04/18 at 09:00 Tamsulosin HCl (Flomax) 0.4 mg DAILY PO Last administered on 11/07/18 07:28; Start 11/04/18 at 09:00 Aspirin (Children'S Aspirin) 81 mg DAILYWBKFT PO Last administered on 07:29; Start 11/04/18 at 08:00 Chlorpromazine HCl (Thorazine) 100 mg QHS PO Last administered on 11/07/18 21: 12; Start 11/03/18 at 21:00 Docusate Sodium (Colace) 100 mg BID PO Last administered on 11/07/18 21:10; Start 11/03/18 at 21:00 Latanoprost (Xalatan) 1 drop QHS OS Last administered on 11/07/18 21:31; Start 11/03/18 at 21:00 Levetiracetam (Keppra) 500 mg BID PO Last administered on 11/07/18 21:10; Start 11/03/18 at 21:00 Olanzapine (ZyPREXA) 5 mg BID PO Last administered on 11/07/18 21:10; Start at 21:00 Pantoprazole Sodium (Protonix) 40 mg DAILYAC PO Last administered on 11/04/18 08:23; Start 11/04/18 at 07:30; Stop 11/04/18 at 10:39; Status DC Paroxetine HCl (Paxil) 20 mg DAILY PO Last administered on 11/07/18 07:28; Start 11/04/18 at 09:00 Polyethylene Glycol (miraLAX) 17 gm DAILY PO Last administered on 11/07/18 07: 29; Start 11/04/18 at 09:00 Sennosides (Senna) 8.6 mg DAILY PO Last administered on 11/07/18 07:28; Start 11/04/18 at 09:00 Sucralfate (Carafate) 1 gm QID PO Last administered on 11/04/18 18:05; Start at 21:00; Stop 11/04/18 at 18:07; Status DC Timolol Maleate (Timoptic 0.5% Oph) 1 drop BID OU Last administered on 21:31; Start 11/03/18 at 21:00 Trazodone HCl (Desyrel) 50 mg PRN QHS PRN PO INSOMNIA Last administered on 11/07 21:31; Start 11/03/18 at 20:15 Acetaminophen (Tylenol) 650 mg PRN Q6HRS PRN PO PAIN / TEMP Last administered on 11/04/18 13:31; Start 11/03/18 at 20:00 Multi-Ingredient Ointment (Analgesic [place]) 1 avni PRN QID PRN TP MUSCLE PAIN; Start 11/03/18 at 20:00 Al Hydroxide/Mg Hydroxide (Mylanta Plus Xs) 15 ml PRN AFTMEALHC PRN PO DYSPEPSIA; Start 11/03/18 at 20:00 Magnesium Hydroxide (Milk Of Magnesia) 2,400 mg PRN QHS PRN PO CONSTIPATION; Start 11/03/18 at 20:00 Influenza Virus Vaccine (Afluria Trivalent [id number] Syringe) 0.5 ml ONCE ONCE VAX IM ; Start 11/04/18 at 09:00; Stop 11/04/18 at 09:01; Status Cancel Pantoprazole Sodium (Protonix) 40 mg DAILY06 PO Last administered on 11/07/18at 05:50; Start 11/05/18 at 06:00 Neomycin/ Polymyxin/ Bacitracin (Triple Antibiotic) 1 avni TID TP Last administered on 11/07/18at 07:36; Start 11/05/18 at 09:00 Sucralfate (Carafate) 1 gm QIDACHS PO Last administered on 11/07/18at 21:10; Start 11/04/18 at 21:00 Lorazepam (Ativan) 0.5 mg PRN Q2HR PRN PO ANXIETY / AGITATION Last administered on 11/07/18at 16:00; Start 11/05/18 at 09:15 Clozapine (Clozaril) 25 mg HS PO Last administered on 11/07/18at 21:10; Start at 21:00; Stop 11/08/18 at 06:00 Clozapine (Clozaril) 50 mg QHS PO ; Start 11/08/18 at 21:00 Active Scripts Active Reported Trazodone Hcl 50 Mg Tablet 50 Mg PO PRN QHS PRN Timoptic (Timolol Maleate) 10 Ml Drops 1 Drop EACHEYE BID Tamsulosin Hcl 0.4 Mg Cap.er.24h 0.4 Mg PO DAILY Carafate (Sucralfate) 1 Gm Tablet 1 Gm PO QID Senna (Sennosides) 8.6 Mg Tablet 8.6 Mg PO DAILY Miralax (Polyethylene Glycol 3350) 17 Gm Powd.pack 1 Packet PO DAILY Paxil (Paroxetine Hcl) 20 Mg Tablet 20 Mg PO DAILY Prilosec Otc (Omeprazole Magnesium) 20 Mg Tablet.dr 40 Mg PO DAILY Olanzapine 5 Mg Tablet 5 Mg PO BID Toprol Xl (Metoprolol Succinate) 25 Mg Tab.er.24h 25 Mg PO DAILY Lisinopril 10 Mg Tablet 10 Mg PO DAILY Keppra (Levetiracetam) 500 Mg Tablet 500 Mg PO BID Latanoprost 2.5 Ml Drops 1 Drop OS QHS Docusate Sodium 100 Mg Capsule 100 Mg PO BID Chlorpromazine Hcl 100 Mg Tablet 100 Mg PO HS Chlorpromazine Hcl 25 Mg Tablet 25 Mg PO TIDWMEALS Lipitor (Atorvastatin Calcium) 20 Mg Tablet 20 Mg PO QHS Aspirin 81 Mg Tab.chew 81 Mg PO DAILY I have reviewed the current psychotropics carefully including drug interactions. Risk benefit ratio favors no change other than as noted in my dictated progress note. Diagnosis: Problems: (1) Anxiety disorder (2) Bipolar affective disorder, mixed (3) Major depressive disorder, recurrent episode (4) Mild cognitive impairment ANASTACIO REED MD Nov 07, 2018 22:44
[2018-11-08 06:01] VITALS: BP 111/75
[2018-11-08] MEDS: PANTOPRAZOLE 40 MG TABLET. PO SCH (06:21)
[2018-11-08] MEDS: SUCRALFATE 1 GM TABLET. PO SCH ×4 (07:44→20:07)
[2018-11-08] MEDS: LISINOPRIL 10 MG TABLET PO SCH (09:17)
[2018-11-08] MEDS: PARoxetine 20 MG TABLET PO SCH (09:18)
[2018-11-08] MEDS: SENNOSIDES 8.6 MG TABLET PO SCH (09:18)
[2018-11-08] MEDS: DOCUSATE SODIUM 100 MG CAPSULE PO SCH ×2 (09:18→20:04)
[2018-11-08] MEDS: METOPROLOL SUCC 24HR ER 25 MG TAB.ER.24H. PO SCH (09:18)
[2018-11-08] MEDS: TAMSULOSIN 0.4 MG CAP.ER.24H. PO SCH (09:18)
[2018-11-08] MEDS: levETIRAcetam 500 MG TABLET PO SCH ×2 (09:18→20:04)
[2018-11-08] MEDS: OLANZapine 5 MG TABLET PO SCH ×2 (09:18→20:04)
[2018-11-08] MEDS: ASPIRIN 81 MG TAB.CHEW PO SCH (09:18)
[2018-11-08] MEDS: chlorproMAZINE HCL 25 MG TABLET PO SCH ×4 (09:19→22:38)
[2018-11-08] MEDS: POLYETHYLENE GLYCOL 3350 17 GM PACKET. PO SCH (09:19)
[2018-11-08] MEDS: TIMOLOL 0.5% OPHTH SOLUTION 5ML BOTTLE. OU SCH ×2 (09:23→20:04)
[2018-11-08] MEDS: NEOMYCIN/BACITRAC/POLY TOPICAL OINTMENT 28GM TUBE. TP SCH ×3 (09:24→21:00)
[2018-11-08 16:12] VITALS: BP 93/60
[2018-11-08] MEDS: LATANOPROST 0.005% OPHTH SOLUTION 2.5ML BOTTLE. OS SCH (20:04)
[2018-11-08] MEDS: ATORVASTATIN CALCIUM 20 MG TABLET PO SCH (20:04)
[2018-11-08] MEDS: cloZAPine 25 MG TABLET PO SCH (20:07)
--- NOTE | 2018-11-08 22:24 | PDOC ---
Exam Note: Shahram Note: Please also refer to the separate dictated note~for this date of service dictated separately.~Patient seen individually. Discussed the patient with Nursing staff reviewed the chart.~Reviewed interim history and current functioning. Reviewed vital signs,~Labs/ Radiology~and current medications noted below. Continue current treatment with the changes noted in the dictated addendum note Assessment: Vital Signs: Vital Signs Date Time Temp Pulse Resp B/P (MAP) Pulse Ox O2 Delivery O2 Flow Rate FiO2 11/08/18 16:12 98.8 67 18 93/60 (71) 98 11/07/18 05:47 BiPAP/CPAP I&O Intake and Output 11/08/18 07:00 Intake Total 360 ml Output Total 800 ml Balance -440 ml Intake Oral 360 ml Output Urine Total 800 ml # Bowel Movements 3 Current Medications: Meds: Current Medications Atorvastatin Calcium (Lipitor) 20 mg QHS PO Last administered on 11/08/18 20: 04; Start 11/03/18 at 21:00 Chlorpromazine HCl (Thorazine) 25 mg TIDWMEALS PO Last administered on 16:40; Start 11/04/18 at 08:00 Lisinopril (Prinivil) 10 mg DAILY PO Last administered on 11/08/18 09:17; Start 11/04/18 at 09:00 Metoprolol Succinate (Toprol Xl) 25 mg DAILY PO Last administered on 11/08/18 09:18; Start 11/04/18 at 09:00 Tamsulosin HCl (Flomax) 0.4 mg DAILY PO Last administered on 11/08/18 09:18; Start 11/04/18 at 09:00 Aspirin (Children'S Aspirin) 81 mg DAILYWBKFT PO Last administered on 09:18; Start 11/04/18 at 08:00 Chlorpromazine HCl (Thorazine) 100 mg QHS PO Last administered on 11/07/18 21: 12; Start 11/03/18 at 21:00 Docusate Sodium (Colace) 100 mg BID PO Last administered on 11/08/18 20:04; Start 11/03/18 at 21:00 Latanoprost (Xalatan) 1 drop QHS OS Last administered on 11/08/18 20:04; Start 11/03/18 at 21:00 Levetiracetam (Keppra) 500 mg BID PO Last administered on 11/08/18 20:04; Start 11/03/18 at 21:00 Olanzapine (ZyPREXA) 5 mg BID PO Last administered on 11/08/18 20:04; Start at 21:00 Pantoprazole Sodium (Protonix) 40 mg DAILYAC PO Last administered on 11/04/18 08:23; Start 11/04/18 at 07:30; Stop 11/04/18 at 10:39; Status DC Paroxetine HCl (Paxil) 20 mg DAILY PO Last administered on 11/08/18 09:18; Start 11/04/18 at 09:00 Polyethylene Glycol (miraLAX) 17 gm DAILY PO Last administered on 11/08/18 09: 19; Start 11/04/18 at 09:00 Sennosides (Senna) 8.6 mg DAILY PO Last administered on 11/08/18 09:18; Start 11/04/18 at 09:00 Sucralfate (Carafate) 1 gm QID PO Last administered on 11/04/18 18:05; Start at 21:00; Stop 11/04/18 at 18:07; Status DC Timolol Maleate (Timoptic 0.5% Oph) 1 drop BID OU Last administered on 20:04; Start 11/03/18 at 21:00 Trazodone HCl (Desyrel) 50 mg PRN QHS PRN PO INSOMNIA Last administered on 11/07 21:31; Start 11/03/18 at 20:15 Acetaminophen (Tylenol) 650 mg PRN Q6HRS PRN PO PAIN / TEMP Last administered on 11/04/18 13:31; Start 11/03/18 at 20:00 Multi-Ingredient Ointment (Analgesic [place]) 1 avni PRN QID PRN TP MUSCLE PAIN; Start 11/03/18 at 20:00 Al Hydroxide/Mg Hydroxide (Mylanta Plus Xs) 15 ml PRN AFTMEALHC PRN PO DYSPEPSIA; Start 11/03/18 at 20:00 Magnesium Hydroxide (Milk Of Magnesia) 2,400 mg PRN QHS PRN PO CONSTIPATION Last administered on 11/08/18 01:32; Start 11/03/18 at 20:00 Influenza Virus Vaccine (Afluria Trivalent [id number] Syringe) 0.5 ml ONCE ONCE VAX IM ; Start 11/04/18 at 09:00; Stop 11/04/18 at 09:01; Status Cancel Pantoprazole Sodium (Protonix) 40 mg DAILY06 PO Last administered on 11/08/18 06:21; Start 11/05/18 at 06:00 Neomycin/ Polymyxin/ Bacitracin (Triple Antibiotic) 1 avni TID TP Last administered on 11/07/18 07:36; Start 11/05/18 at 09:00 Sucralfate (Carafate) 1 gm QIDACHS PO Last administered on 11/08/18 20:07; Start 11/04/18 at 21:00 Lorazepam (Ativan) 0.5 mg PRN Q2HR PRN PO ANXIETY / AGITATION Last administered on 11/07/18 16:00; Start 11/05/18 at 09:15 Clozapine (Clozaril) 25 mg HS PO Last administered on 11/07/18 21:10; Start at 21:00; Stop 11/08/18 at 06:00; Status DC Clozapine (Clozaril) 50 mg QHS PO Last administered on 11/08/18at 20:07; Start 11/08/18 at 21:00 Active Scripts Active Reported Trazodone Hcl 50 Mg Tablet 50 Mg PO PRN QHS PRN Timoptic (Timolol Maleate) 10 Ml Drops 1 Drop EACHEYE BID Tamsulosin Hcl 0.4 Mg Cap.er.24h 0.4 Mg PO DAILY Carafate (Sucralfate) 1 Gm Tablet 1 Gm PO QID Senna (Sennosides) 8.6 Mg Tablet 8.6 Mg PO DAILY Miralax (Polyethylene Glycol 3350) 17 Gm Powd.pack 1 Packet PO DAILY Paxil (Paroxetine Hcl) 20 Mg Tablet 20 Mg PO DAILY Prilosec Otc (Omeprazole Magnesium) 20 Mg Tablet.dr 40 Mg PO DAILY Olanzapine 5 Mg Tablet 5 Mg PO BID Toprol Xl (Metoprolol Succinate) 25 Mg Tab.er.24h 25 Mg PO DAILY Lisinopril 10 Mg Tablet 10 Mg PO DAILY Keppra (Levetiracetam) 500 Mg Tablet 500 Mg PO BID Latanoprost 2.5 Ml Drops 1 Drop OS QHS Docusate Sodium 100 Mg Capsule 100 Mg PO BID Chlorpromazine Hcl 100 Mg Tablet 100 Mg PO HS Chlorpromazine Hcl 25 Mg Tablet 25 Mg PO TIDWMEALS Lipitor (Atorvastatin Calcium) 20 Mg Tablet 20 Mg PO QHS Aspirin 81 Mg Tab.chew 81 Mg PO DAILY I have reviewed the current psychotropics carefully including drug interactions. Risk benefit ratio favors no change other than as noted in my dictated progress note. Diagnosis: Problems: (1) Anxiety disorder (2) Bipolar affective disorder, mixed (3) Major depressive disorder, recurrent episode (4) Mild cognitive impairment ANASTACIO REED MD Nov 08, 2018 22:24
--- NOTE | 2018-11-08 23:56 | PN ---
DATE: 11/07/2018 PSYCHIATRIC PROGRESS NOTE This late entry for 11/07/2018 covers elements not covered in my initial note. SUBJECTIVE: I met with the patient in the evening. The patient slept 7-1/2 hours previous night and this morning. He remains less attention seeking, hard to wake up in the morning, takes meds in pudding, anxious, listens to Rachele Peraza, ferreira, seemed to be animated by this. About an hour prior to my visit in the evening, he was quite anxious, received Ativan p.r.n. REVIEW OF SYSTEMS: Ambulation is impaired, in wheelchair. No CV, , pulmonary, eye system symptoms on review. MENTAL STATUS EXAM: Oriented to himself and situation. Speech is coherent, has some latency. Abstraction fair, computation impaired, language function is intact, attention span short. Mood and affect remain somewhat anxious, labile. LABORATORY DATA: Reviewed. IMPRESSION: Unchanged from initial note. PLAN: No change from initial notes and adjust Clozaril gradually. ANASTACIO REED MD DR: CRYSTAL/nicole JOB#: [id number] / [id number]
[2018-11-09 05:51] VITALS: BP 117/71
[2018-11-09] MEDS: PANTOPRAZOLE 40 MG TABLET. PO SCH (06:29)
[2018-11-09] MEDS: SUCRALFATE 1 GM TABLET. PO SCH ×4 (08:00→19:56)
[2018-11-09] MEDS: ASPIRIN 81 MG TAB.CHEW PO SCH (08:00)
[2018-11-09] MEDS: TIMOLOL 0.5% OPHTH SOLUTION 5ML BOTTLE. OU SCH ×2 (08:01→19:56)
[2018-11-09] MEDS: chlorproMAZINE HCL 25 MG TABLET PO SCH ×4 (08:01→19:56)
[2018-11-09] MEDS: TAMSULOSIN 0.4 MG CAP.ER.24H. PO SCH (08:02)
[2018-11-09] MEDS: PARoxetine 20 MG TABLET PO SCH (08:02)
[2018-11-09] MEDS: POLYETHYLENE GLYCOL 3350 17 GM PACKET. PO SCH (08:02)
[2018-11-09] MEDS: levETIRAcetam 500 MG TABLET PO SCH ×2 (08:02→19:54)
[2018-11-09] MEDS: DOCUSATE SODIUM 100 MG CAPSULE PO SCH ×2 (08:02→19:54)
[2018-11-09] MEDS: LISINOPRIL 10 MG TABLET PO SCH (08:02)
[2018-11-09] MEDS: SENNOSIDES 8.6 MG TABLET PO SCH (08:02)
[2018-11-09] MEDS: METOPROLOL SUCC 24HR ER 25 MG TAB.ER.24H. PO SCH (08:03)
[2018-11-09] MEDS: OLANZapine 5 MG TABLET PO SCH ×2 (08:03→19:53)
[2018-11-09] MEDS: NEOMY/BACITR/POLYMYXIN OINT PACKET. TP SCH ×2 (12:40→21:00)
[2018-11-09 16:39] VITALS: BP 124/78
[2018-11-09] MEDS ORDERED: CHOLECALCIFEROL (VITAMIN D3) 50,000 UNIT CAPSULE PO SCH (18:15)
[2018-11-09] MEDS: ATORVASTATIN CALCIUM 20 MG TABLET PO SCH (19:53)
[2018-11-09] MEDS: cloZAPine 25 MG TABLET PO SCH (19:54)
[2018-11-09] MEDS: LATANOPROST 0.005% OPHTH SOLUTION 2.5ML BOTTLE. OS SCH (19:56)
--- NOTE | 2018-11-09 22:45 | PDOC ---
Exam Note: Shahram Note: Please also refer to the separate dictated note~for this date of service dictated separately.~Patient seen individually. Discussed the patient with Nursing staff reviewed the chart.~Reviewed interim history and current functioning. Reviewed vital signs,~Labs/ Radiology~and current medications noted below. Continue current treatment with the changes noted in the dictated addendum note Assessment: Vital Signs: Vital Signs Date Time Temp Pulse Resp B/P (MAP) Pulse Ox O2 Delivery O2 Flow Rate FiO2 11/09/18 16:39 97.0 89 18 124/78 (93) 97 11/07/18 05:47 BiPAP/CPAP I&O Intake and Output 11/09/18 07:00 Intake Total 960 ml Balance 960 ml Intake Oral 960 ml Labs: Laboratory Tests Test 11/09/18 13:26 Glucose (Fingerstick) 141 mg/dL (70-99) H Current Medications: Meds: Current Medications Atorvastatin Calcium (Lipitor) 20 mg QHS PO Last administered on 11/09/18 19: 53; Start 11/03/18 at 21:00 Chlorpromazine HCl (Thorazine) 25 mg TIDWMEALS PO Last administered on 16:30; Start 11/04/18 at 08:00 Lisinopril (Prinivil) 10 mg DAILY PO Last administered on 11/09/18 08:02; Start 11/04/18 at 09:00 Metoprolol Succinate (Toprol Xl) 25 mg DAILY PO Last administered on 11/09/18 08:03; Start 11/04/18 at 09:00 Tamsulosin HCl (Flomax) 0.4 mg DAILY PO Last administered on 11/09/18 08:02; Start 11/04/18 at 09:00 Aspirin (Children'S Aspirin) 81 mg DAILYWBKFT PO Last administered on 08:00; Start 11/04/18 at 08:00 Chlorpromazine HCl (Thorazine) 100 mg QHS PO Last administered on 11/09/18 19: 56; Start 11/03/18 at 21:00 Docusate Sodium (Colace) 100 mg BID PO Last administered on 11/09/18 19:54; Start 11/03/18 at 21:00 Latanoprost (Xalatan) 1 drop QHS OS Last administered on 11/09/18 19:56; Start 11/03/18 at 21:00 Levetiracetam (Keppra) 500 mg BID PO Last administered on 11/09/18 19:54; Start 11/03/18 at 21:00 Olanzapine (ZyPREXA) 5 mg BID PO Last administered on 11/09/18 19:53; Start at 21:00 Pantoprazole Sodium (Protonix) 40 mg DAILYAC PO Last administered on 11/04/18 08:23; Start 11/04/18 at 07:30; Stop 11/04/18 at 10:39; Status DC Paroxetine HCl (Paxil) 20 mg DAILY PO Last administered on 11/09/18 08:02; Start 11/04/18 at 09:00 Polyethylene Glycol (miraLAX) 17 gm DAILY PO Last administered on 11/09/18 08: 02; Start 11/04/18 at 09:00 Sennosides (Senna) 8.6 mg DAILY PO Last administered on 11/09/18 08:02; Start 11/04/18 at 09:00 Sucralfate (Carafate) 1 gm QID PO Last administered on 11/04/18 18:05; Start at 21:00; Stop 11/04/18 at 18:07; Status DC Timolol Maleate (Timoptic 0.5% Oph) 1 drop BID OU Last administered on 19:56; Start 11/03/18 at 21:00 Trazodone HCl (Desyrel) 50 mg PRN QHS PRN PO INSOMNIA Last administered on 11/07 21:31; Start 11/03/18 at 20:15 Acetaminophen (Tylenol) 650 mg PRN Q6HRS PRN PO PAIN / TEMP Last administered on 11/04/18 13:31; Start 11/03/18 at 20:00 Multi-Ingredient Ointment (Analgesic [place]) 1 avni PRN QID PRN TP MUSCLE PAIN; Start 11/03/18 at 20:00 Al Hydroxide/Mg Hydroxide (Mylanta Plus Xs) 15 ml PRN AFTMEALHC PRN PO DYSPEPSIA; Start 11/03/18 at 20:00 Magnesium Hydroxide (Milk Of Magnesia) 2,400 mg PRN QHS PRN PO CONSTIPATION Last administered on 11/08/18at 01:32; Start 11/03/18 at 20:00 Influenza Virus Vaccine (Afluria Trivalent [id number] Syringe) 0.5 ml ONCE ONCE VAX IM ; Start 11/04/18 at 09:00; Stop 11/04/18 at 09:01; Status Cancel Pantoprazole Sodium (Protonix) 40 mg DAILY06 PO Last administered on 11/09/18at 06:29; Start 11/05/18 at 06:00 Neomycin/ Polymyxin/ Bacitracin (Triple Antibiotic) 1 avni TID TP Last administered on 11/07/18 07:36; Start 11/05/18 at 09:00; Stop 11/09/18 at 12:18 ; Status DC Sucralfate (Carafate) 1 gm QIDACHS PO Last administered on 11/09/18at 19:56; Start 11/04/18 at 21:00 Lorazepam (Ativan) 0.5 mg PRN Q2HR PRN PO ANXIETY / AGITATION Last administered on 11/07/18 16:00; Start 11/05/18 at 09:15 Clozapine (Clozaril) 25 mg HS PO Last administered on 11/07/18 21:10; Start at 21:00; Stop 11/08/18 at 06:00; Status DC Clozapine (Clozaril) 50 mg QHS PO Last administered on 11/09/18at 19:54; Start 11/08/18 at 21:00 Neomycin/ Polymyxin/ Bacitracin (Triple Antibiotic Ointment) 1 pkt TID TP Last administered on 11/09/18 12:40; Start 11/09/18 at 14:00 Vitamin D (Vitamin D3) 50,000 unit WEEKLY PO Last administered on 11/09/18 19: 56; Start 11/09/18 at 18:15 Active Scripts Active Reported Trazodone Hcl 50 Mg Tablet 50 Mg PO PRN QHS PRN Timoptic (Timolol Maleate) 10 Ml Drops 1 Drop EACHEYE BID Tamsulosin Hcl 0.4 Mg Cap.er.24h 0.4 Mg PO DAILY Carafate (Sucralfate) 1 Gm Tablet 1 Gm PO QID Senna (Sennosides) 8.6 Mg Tablet 8.6 Mg PO DAILY Miralax (Polyethylene Glycol 3350) 17 Gm Powd.pack 1 Packet PO DAILY Paxil (Paroxetine Hcl) 20 Mg Tablet 20 Mg PO DAILY Prilosec Otc (Omeprazole Magnesium) 20 Mg Tablet.dr 40 Mg PO DAILY Olanzapine 5 Mg Tablet 5 Mg PO BID Toprol Xl (Metoprolol Succinate) 25 Mg Tab.er.24h 25 Mg PO DAILY Lisinopril 10 Mg Tablet 10 Mg PO DAILY Keppra (Levetiracetam) 500 Mg Tablet 500 Mg PO BID Latanoprost 2.5 Ml Drops 1 Drop OS QHS Docusate Sodium 100 Mg Capsule 100 Mg PO BID Chlorpromazine Hcl 100 Mg Tablet 100 Mg PO HS Chlorpromazine Hcl 25 Mg Tablet 25 Mg PO TIDWMEALS Lipitor (Atorvastatin Calcium) 20 Mg Tablet 20 Mg PO QHS Aspirin 81 Mg Tab.chew 81 Mg PO DAILY I have reviewed the current psychotropics carefully including drug interactions. Risk benefit ratio favors no change other than as noted in my dictated progress note. Diagnosis: Problems: (1) Anxiety disorder (2) Bipolar affective disorder, mixed (3) Major depressive disorder, recurrent episode (4) Mild cognitive impairment ANASTACIO REED MD Nov 09, 2018 22:45
[2018-11-10] MEDS: PANTOPRAZOLE 40 MG TABLET. PO SCH (06:07)
[2018-11-10 06:31] VITALS: BP 127/79
[2018-11-10] MEDS: TAMSULOSIN 0.4 MG CAP.ER.24H. PO SCH (09:46)
[2018-11-10] MEDS: LISINOPRIL 10 MG TABLET PO SCH (09:47)
[2018-11-10] MEDS: OLANZapine 5 MG TABLET PO SCH ×2 (09:47→20:30)
[2018-11-10] MEDS: SENNOSIDES 8.6 MG TABLET PO SCH (09:47)
[2018-11-10] MEDS: PARoxetine 20 MG TABLET PO SCH (09:47)
[2018-11-10] MEDS: chlorproMAZINE HCL 25 MG TABLET PO SCH ×5 (09:47→20:30)
[2018-11-10] MEDS: SUCRALFATE 1 GM TABLET. PO SCH ×5 (09:48→20:33)
[2018-11-10] MEDS: DOCUSATE SODIUM 100 MG CAPSULE PO SCH ×2 (09:48→20:30)
[2018-11-10] MEDS: levETIRAcetam 500 MG TABLET PO SCH ×2 (09:48→20:29)
[2018-11-10] MEDS: METOPROLOL SUCC 24HR ER 25 MG TAB.ER.24H. PO SCH (09:48)
[2018-11-10] MEDS: POLYETHYLENE GLYCOL 3350 17 GM PACKET. PO SCH (09:48)
[2018-11-10] MEDS: TIMOLOL 0.5% OPHTH SOLUTION 5ML BOTTLE. OU SCH ×2 (09:48→20:30)
[2018-11-10] MEDS: ASPIRIN 81 MG TAB.CHEW PO SCH (09:50)
[2018-11-10] MEDS: NEOMY/BACITR/POLYMYXIN OINT PACKET. TP SCH ×3 (09:50→20:29)
[2018-11-10 16:56] VITALS: BP 123/72
[2018-11-10 19:35] LABS: BILIRUBIN,URINE NEG (NEG); CLARITY,URINE CLOUDY; COLOR,URINE AMBER; GLUCOSE,URINE NEG (NEG)
[2018-11-10 19:36] LABS: AMORPHOUS SEDIMENT,UR PRESENT /HPF; BACTERIA,URINE MANY /HPF (0-FEW); NITRITE,URINE NEG (NEG); RBC,URINE TNTC /HPF (0-2); SQUAMOUS EPITHELIAL CELL,UR OCC /LPF; UROBILINOGEN,URINE 0.2 mg/dL (0.2 mg/dL)
[2018-11-10] MEDS: cloZAPine 25 MG TABLET PO SCH (20:30)
[2018-11-10] MEDS: ATORVASTATIN CALCIUM 20 MG TABLET PO SCH (20:30)
[2018-11-10] MEDS: LATANOPROST 0.005% OPHTH SOLUTION 2.5ML BOTTLE. OS SCH (20:31)
--- NOTE | 2018-11-10 21:07 | PN ---
DATE: 11/08/2018 PSYCHIATRIC PROGRESS NOTE This late entry 11/08/2018 covers elements not covered in my initial note. SUBJECTIVE: I met with the patient in the evening. The patient slept 5 hours previous night. He has been little more social, stays in his chair in the day room, takes meds with water, compliant with the increased Clozaril, which we will increase to 50 mg p.o. at bedtime. REVIEW OF SYSTEMS: Ambulation impaired, in wheelchair. No CV, , pulmonary, eye system symptoms on review. MENTAL STATUS EXAM: Reasonably oriented. Speech moderate latency, often responses monosyllabic. Abstraction fair, computation impaired, language function intact, attention span short. Mood and affect at times withdrawn. LABORATORY DATA: Reviewed. IMPRESSION: Unchanged from initial note. PLAN: Increase the Clozaril as above. Rest unchanged. MAN Villa REED MD DR: CRYSTAL/nicole JOB#: [id number] / [id number]
--- NOTE | 2018-11-10 21:10 | PN ---
DATE: 11/09/2018 PSYCHIATRIC PROGRESS NOTE This late entry 11/09/2018 covers elements not covered in my initial note. SUBJECTIVE: I met with the patient in the evening and staffed at a treatment team meeting with the entire team in the morning. The patient slept 5 hours, reviewed his history at length. Appetite 100%, compliant with meds, cooperative but very somatically preoccupied. REVIEW OF SYSTEMS: Ambulation impaired, in wheelchair. No CV, , pulmonary, eye system symptoms on review, vague somatic symptoms are evident. MENTAL STATUS EXAM: Oriented to himself and situation. Speech has some latency, coherent. Abstraction fair, computation impaired, language function intact, attention span short. Mood and affect somewhat withdrawn. LABORATORY DATA: Reviewed. IMPRESSION: Unchanged from initial note. PLAN: No change from initial note. MAN Villa REED MD DR: CRYSTAL/nicole JOB#: [id number] / [id number]
--- NOTE | 2018-11-10 22:42 | PDOC ---
Exam Note: Shahram Note: Please also refer to the separate dictated note~for this date of service dictated separately.~Patient seen individually. Discussed the patient with Nursing staff reviewed the chart.~Reviewed interim history and current functioning. Reviewed vital signs,~Labs/ Radiology~and current medications noted below. Continue current treatment with the changes noted in the dictated addendum note Assessment: Vital Signs: Vital Signs Date Time Temp Pulse Resp B/P (MAP) Pulse Ox O2 Delivery O2 Flow Rate FiO2 11/10/18 16:56 98.4 86 20 123/72 (89) 97 Room Air I&O Intake and Output 11/10/18 07:00 Intake Total 1240 ml Output Total 3900 ml Balance -2660 ml Intake Oral 1240 ml Output Urine Total 3900 ml Labs: Laboratory Tests Test 11/10/18 19:20 Urine Collection Type Unknown Urine Color Dorie Urine Clarity Cloudy Urine pH 8.5 Urine Specific [place] 1.015 Urine Protein 100 mg/dl (NEG-TRACE) Urine Glucose (UA) Neg mg/dL (NEG) Urine Ketones (Stick) Neg mg/dL (NEG) Urine Blood Large (NEG) Urine Nitrite Neg (NEG) Urine Bilirubin Neg (NEG) Urine Urobilinogen Dipstick 0.2 mg/dL (0.2 mg/dL) Urine Leukocyte Esterase Small (NEG) Urine RBC Tntc /HPF (0-2) Urine WBC 11-20 /HPF (0-4) Urine Squamous Epithelial Cells Occ /LPF Urine Amorphous Sediment Present /HPF Urine Bacteria Many /HPF (0-FEW) Urine Mucus Marked /LPF Current Medications: Meds: Current Medications Atorvastatin Calcium (Lipitor) 20 mg QHS PO Last administered on 11/10/18at 20: 30; Start 11/03/18 at 21:00 Chlorpromazine HCl (Thorazine) 25 mg TIDWMEALS PO Last administered on at 12:08; Start 11/04/18 at 08:00 Lisinopril (Prinivil) 10 mg DAILY PO Last administered on 11/10/18at 09:47; Start 11/04/18 at 09:00 Metoprolol Succinate (Toprol Xl) 25 mg DAILY PO Last administered on 11/10/18at 09:48; Start 11/04/18 at 09:00 Tamsulosin HCl (Flomax) 0.4 mg DAILY PO Last administered on 11/10/18 09:46; Start 11/04/18 at 09:00 Aspirin (Children'S Aspirin) 81 mg DAILYWBKFT PO Last administered on 09:50; Start 11/04/18 at 08:00 Chlorpromazine HCl (Thorazine) 100 mg QHS PO Last administered on 11/10/18 20: 30; Start 11/03/18 at 21:00 Docusate Sodium (Colace) 100 mg BID PO Last administered on 11/10/18 20:30; Start 11/03/18 at 21:00 Latanoprost (Xalatan) 1 drop QHS OS Last administered on 11/10/18 20:31; Start 11/03/18 at 21:00 Levetiracetam (Keppra) 500 mg BID PO Last administered on 11/10/18 20:29; Start 11/03/18 at 21:00 Olanzapine (ZyPREXA) 5 mg BID PO Last administered on 11/10/18 20:30; Start at 21:00 Pantoprazole Sodium (Protonix) 40 mg DAILYAC PO Last administered on 11/04/18 08:23; Start 11/04/18 at 07:30; Stop 11/04/18 at 10:39; Status DC Paroxetine HCl (Paxil) 20 mg DAILY PO Last administered on 11/10/18 09:47; Start 11/04/18 at 09:00 Polyethylene Glycol (miraLAX) 17 gm DAILY PO Last administered on 11/10/18 09: 48; Start 11/04/18 at 09:00 Sennosides (Senna) 8.6 mg DAILY PO Last administered on 11/10/18 09:47; Start 11/04/18 at 09:00 Sucralfate (Carafate) 1 gm QID PO Last administered on 11/04/18 18:05; Start at 21:00; Stop 11/04/18 at 18:07; Status DC Timolol Maleate (Timoptic 0.5% Oph) 1 drop BID OU Last administered on 20:30; Start 11/03/18 at 21:00 Trazodone HCl (Desyrel) 50 mg PRN QHS PRN PO INSOMNIA Last administered on 11/07 21:31; Start 11/03/18 at 20:15 Acetaminophen (Tylenol) 650 mg PRN Q6HRS PRN PO PAIN / TEMP Last administered on 11/04/18at 13:31; Start 11/03/18 at 20:00 Multi-Ingredient Ointment (Analgesic [place]) 1 avni PRN QID PRN TP MUSCLE PAIN; Start 11/03/18 at 20:00 Al Hydroxide/Mg Hydroxide (Mylanta Plus Xs) 15 ml PRN AFTMEALHC PRN PO DYSPEPSIA; Start 11/03/18 at 20:00 Magnesium Hydroxide (Milk Of Magnesia) 2,400 mg PRN QHS PRN PO CONSTIPATION Last administered on 11/08/18 01:32; Start 11/03/18 at 20:00 Influenza Virus Vaccine (Afluria Trivalent [id number] Syringe) 0.5 ml ONCE ONCE VAX IM ; Start 11/04/18 at 09:00; Stop 11/04/18 at 09:01; Status Cancel Pantoprazole Sodium (Protonix) 40 mg DAILY06 PO Last administered on 11/10/18 06:07; Start 11/05/18 at 06:00 Neomycin/ Polymyxin/ Bacitracin (Triple Antibiotic) 1 avni TID TP Last administered on 11/07/18 07:36; Start 11/05/18 at 09:00; Stop 11/09/18 at 12:18 ; Status DC Sucralfate (Carafate) 1 gm QIDACHS PO Last administered on 11/10/18at 20:33; Start 11/04/18 at 21:00 Lorazepam (Ativan) 0.5 mg PRN Q2HR PRN PO ANXIETY / AGITATION Last administered on 11/07/18 16:00; Start 11/05/18 at 09:15 Clozapine (Clozaril) 25 mg HS PO Last administered on 11/07/18 21:10; Start at 21:00; Stop 11/08/18 at 06:00; Status DC Clozapine (Clozaril) 50 mg QHS PO Last administered on 11/10/18at 20:30; Start 11/08/18 at 21:00 Neomycin/ Polymyxin/ Bacitracin (Triple Antibiotic Ointment) 1 pkt TID TP Last administered on 11/10/18at 20:29; Start 11/09/18 at 14:00 Vitamin D (Vitamin D3) 50,000 unit WEEKLY PO Last administered on 11/09/18at 19: 56; Start 11/09/18 at 18:15 Active Scripts Active Reported Trazodone Hcl 50 Mg Tablet 50 Mg PO PRN QHS PRN Timoptic (Timolol Maleate) 10 Ml Drops 1 Drop EACHEYE BID Tamsulosin Hcl 0.4 Mg Cap.er.24h 0.4 Mg PO DAILY Carafate (Sucralfate) 1 Gm Tablet 1 Gm PO QID Senna (Sennosides) 8.6 Mg Tablet 8.6 Mg PO DAILY Miralax (Polyethylene Glycol 3350) 17 Gm Powd.pack 1 Packet PO DAILY Paxil (Paroxetine Hcl) 20 Mg Tablet 20 Mg PO DAILY Prilosec Otc (Omeprazole Magnesium) 20 Mg Tablet.dr 40 Mg PO DAILY Olanzapine 5 Mg Tablet 5 Mg PO BID Toprol Xl (Metoprolol Succinate) 25 Mg Tab.er.24h 25 Mg PO DAILY Lisinopril 10 Mg Tablet 10 Mg PO DAILY Keppra (Levetiracetam) 500 Mg Tablet 500 Mg PO BID Latanoprost 2.5 Ml Drops 1 Drop OS QHS Docusate Sodium 100 Mg Capsule 100 Mg PO BID Chlorpromazine Hcl 100 Mg Tablet 100 Mg PO HS Chlorpromazine Hcl 25 Mg Tablet 25 Mg PO TIDWMEALS Lipitor (Atorvastatin Calcium) 20 Mg Tablet 20 Mg PO QHS Aspirin 81 Mg Tab.chew 81 Mg PO DAILY I have reviewed the current psychotropics carefully including drug interactions. Risk benefit ratio favors no change other than as noted in my dictated progress note. Diagnosis: Problems: (1) Anxiety disorder (2) Bipolar affective disorder, mixed (3) Major depressive disorder, recurrent episode (4) Mild cognitive impairment ANASTACIO REED MD Nov 10, 2018 22:42
[2018-11-11] MEDS: PANTOPRAZOLE 40 MG TABLET. PO SCH (06:40)
[2018-11-11 06:58] VITALS: BP 134/83
[2018-11-11] MEDS: METOPROLOL SUCC 24HR ER 25 MG TAB.ER.24H. PO SCH (07:44)
[2018-11-11] MEDS: OLANZapine 5 MG TABLET PO SCH ×2 (07:44→20:27)
[2018-11-11] MEDS: SUCRALFATE 1 GM TABLET. PO SCH ×4 (07:44→20:27)
[2018-11-11] MEDS: PARoxetine 20 MG TABLET PO SCH (07:44)
[2018-11-11] MEDS: NEOMY/BACITR/POLYMYXIN OINT PACKET. TP SCH ×3 (07:44→20:28)
[2018-11-11] MEDS: levETIRAcetam 500 MG TABLET PO SCH ×2 (07:44→20:27)
[2018-11-11] MEDS: TAMSULOSIN 0.4 MG CAP.ER.24H. PO SCH (07:44)
[2018-11-11] MEDS: DOCUSATE SODIUM 100 MG CAPSULE PO SCH ×2 (07:45→20:26)
[2018-11-11] MEDS: LISINOPRIL 10 MG TABLET PO SCH (07:45)
[2018-11-11] MEDS: POLYETHYLENE GLYCOL 3350 17 GM PACKET. PO SCH (07:45)
[2018-11-11] MEDS: ASPIRIN 81 MG TAB.CHEW PO SCH (07:45)
[2018-11-11] MEDS: SENNOSIDES 8.6 MG TABLET PO SCH (07:45)
[2018-11-11] MEDS: chlorproMAZINE HCL 25 MG TABLET PO SCH ×4 (08:09→20:31)
[2018-11-11] MEDS: TIMOLOL 0.5% OPHTH SOLUTION 5ML BOTTLE. OU SCH ×2 (08:09→20:32)
[2018-11-11 16:13] VITALS: BP 99/65
[2018-11-11] MEDS: cloZAPine 25 MG TABLET PO SCH (20:26)
[2018-11-11] MEDS: ATORVASTATIN CALCIUM 20 MG TABLET PO SCH (20:27)
[2018-11-11] MEDS: LATANOPROST 0.005% OPHTH SOLUTION 2.5ML BOTTLE. OS SCH (20:28)
--- NOTE | 2018-11-11 22:01 | PDOC ---
Exam Note: Shahram Note: Please also refer to the separate dictated note~for this date of service dictated separately.~Patient seen individually. Discussed the patient with Nursing staff reviewed the chart.~Reviewed interim history and current functioning. Reviewed vital signs,~Labs/ Radiology~and current medications noted below. Continue current treatment with the changes noted in the dictated addendum note Assessment: Vital Signs: Vital Signs Date Time Temp Pulse Resp B/P (MAP) Pulse Ox O2 Delivery O2 Flow Rate FiO2 11/11/18 16:13 98.4 75 18 99/65 (76) 97 11/10/18 16:56 Room Air I&O Intake and Output 11/11/18 07:00 Intake Total 240 ml Output Total 1000 ml Balance -760 ml Intake Oral 240 ml Output Urine Total 1000 ml Current Medications: Meds: Current Medications Atorvastatin Calcium (Lipitor) 20 mg QHS PO Last administered on 11/11/18 20: 27; Start 11/03/18 at 21:00 Chlorpromazine HCl (Thorazine) 25 mg TIDWMEALS PO Last administered on 11:52; Start 11/04/18 at 08:00 Lisinopril (Prinivil) 10 mg DAILY PO Last administered on 11/11/18 07:45; Start 11/04/18 at 09:00 Metoprolol Succinate (Toprol Xl) 25 mg DAILY PO Last administered on 11/11/18 07:44; Start 11/04/18 at 09:00 Tamsulosin HCl (Flomax) 0.4 mg DAILY PO Last administered on 11/11/18 07:44; Start 11/04/18 at 09:00 Aspirin (Children'S Aspirin) 81 mg DAILYWBKFT PO Last administered on 07:45; Start 11/04/18 at 08:00 Chlorpromazine HCl (Thorazine) 100 mg QHS PO Last administered on 11/11/18 20: 31; Start 11/03/18 at 21:00 Docusate Sodium (Colace) 100 mg BID PO Last administered on 11/11/18 20:26; Start 11/03/18 at 21:00 Latanoprost (Xalatan) 1 drop QHS OS Last administered on 11/11/18 20:28; Start 11/03/18 at 21:00 Levetiracetam (Keppra) 500 mg BID PO Last administered on 11/11/18 20:27; Start 11/03/18 at 21:00 Olanzapine (ZyPREXA) 5 mg BID PO Last administered on 11/11/18 20:27; Start at 21:00 Pantoprazole Sodium (Protonix) 40 mg DAILYAC PO Last administered on 11/04/18 08:23; Start 11/04/18 at 07:30; Stop 11/04/18 at 10:39; Status DC Paroxetine HCl (Paxil) 20 mg DAILY PO Last administered on 11/11/18 07:44; Start 11/04/18 at 09:00 Polyethylene Glycol (miraLAX) 17 gm DAILY PO Last administered on 11/11/18 07: 45; Start 11/04/18 at 09:00 Sennosides (Senna) 8.6 mg DAILY PO Last administered on 11/11/18 07:45; Start 11/04/18 at 09:00 Sucralfate (Carafate) 1 gm QID PO Last administered on 11/04/18 18:05; Start at 21:00; Stop 11/04/18 at 18:07; Status DC Timolol Maleate (Timoptic 0.5% [facility]) 1 drop BID OU Last administered on 20:32; Start 11/03/18 at 21:00 Trazodone HCl (Desyrel) 50 mg PRN QHS PRN PO INSOMNIA Last administered on 11/07 21:31; Start 11/03/18 at 20:15 Acetaminophen (Tylenol) 650 mg PRN Q6HRS PRN PO PAIN / TEMP Last administered on 11/04/18 13:31; Start 11/03/18 at 20:00 Multi-Ingredient Ointment (Analgesic [place]) 1 avni PRN QID PRN TP MUSCLE PAIN; Start 11/03/18 at 20:00 Al Hydroxide/Mg Hydroxide (Mylanta Plus Xs) 15 ml PRN AFTMEALHC PRN PO DYSPEPSIA; Start 11/03/18 at 20:00 Magnesium Hydroxide (Milk Of Magnesia) 2,400 mg PRN QHS PRN PO CONSTIPATION Last administered on 11/08/18 01:32; Start 11/03/18 at 20:00 Influenza Virus Vaccine (Afluria Trivalent [id number] Syringe) 0.5 ml ONCE ONCE VAX IM ; Start 11/04/18 at 09:00; Stop 11/04/18 at 09:01; Status Cancel Pantoprazole Sodium (Protonix) 40 mg DAILY06 PO Last administered on 11/11/18 06:40; Start 11/05/18 at 06:00 Neomycin/ Polymyxin/ Bacitracin (Triple Antibiotic) 1 avni TID TP Last administered on 11/07/18 07:36; Start 11/05/18 at 09:00; Stop 11/09/18 at 12:18 ; Status DC Sucralfate (Carafate) 1 gm QIDACHS PO Last administered on 11/11/18 20:27; Start 11/04/18 at 21:00 Lorazepam (Ativan) 0.5 mg PRN Q2HR PRN PO ANXIETY / AGITATION Last administered on 11/07/18 16:00; Start 11/05/18 at 09:15 Clozapine (Clozaril) 25 mg HS PO Last administered on 11/07/18 21:10; Start at 21:00; Stop 11/08/18 at 06:00; Status DC Clozapine (Clozaril) 50 mg QHS PO Last administered on 11/11/18 20:26; Start 11/08/18 at 21:00 Neomycin/ Polymyxin/ Bacitracin (Triple Antibiotic Ointment) 1 pkt TID TP Last administered on 11/11/18 20:28; Start 11/09/18 at 14:00 Vitamin D (Vitamin D3) 50,000 unit WEEKLY PO Last administered on 11/09/18 19: 56; Start 11/09/18 at 18:15 Active Scripts Active Reported Trazodone Hcl 50 Mg Tablet 50 Mg PO PRN QHS PRN Timoptic (Timolol Maleate) 10 Ml Drops 1 Drop EACHEYE BID Tamsulosin Hcl 0.4 Mg Cap.er.24h 0.4 Mg PO DAILY Carafate (Sucralfate) 1 Gm Tablet 1 Gm PO QID Senna (Sennosides) 8.6 Mg Tablet 8.6 Mg PO DAILY Miralax (Polyethylene Glycol 3350) 17 Gm Powd.pack 1 Packet PO DAILY Paxil (Paroxetine Hcl) 20 Mg Tablet 20 Mg PO DAILY Prilosec Otc (Omeprazole Magnesium) 20 Mg Tablet.dr 40 Mg PO DAILY Olanzapine 5 Mg Tablet 5 Mg PO BID Toprol Xl (Metoprolol Succinate) 25 Mg Tab.er.24h 25 Mg PO DAILY Lisinopril 10 Mg Tablet 10 Mg PO DAILY Keppra (Levetiracetam) 500 Mg Tablet 500 Mg PO BID Latanoprost 2.5 Ml Drops 1 Drop OS QHS Docusate Sodium 100 Mg Capsule 100 Mg PO BID Chlorpromazine Hcl 100 Mg Tablet 100 Mg PO HS Chlorpromazine Hcl 25 Mg Tablet 25 Mg PO TIDWMEALS Lipitor (Atorvastatin Calcium) 20 Mg Tablet 20 Mg PO QHS Aspirin 81 Mg Tab.chew 81 Mg PO DAILY I have reviewed the current psychotropics carefully including drug interactions. Risk benefit ratio favors no change other than as noted in my dictated progress note. Diagnosis: Problems: (1) Anxiety disorder (2) Bipolar affective disorder, mixed (3) Major depressive disorder, recurrent episode (4) Mild cognitive impairment ANASTACIO REED MD Nov 11, 2018 22:01
[2018-11-12] MEDS: PANTOPRAZOLE 40 MG TABLET. PO SCH (05:48)
[2018-11-12 05:59] VITALS: BP 149/92
[2018-11-12] MEDS: SUCRALFATE 1 GM TABLET. PO SCH ×4 (07:33→19:59)
[2018-11-12] MEDS: SENNOSIDES 8.6 MG TABLET PO SCH (07:38)
[2018-11-12] MEDS: LISINOPRIL 10 MG TABLET PO SCH (07:38)
[2018-11-12] MEDS: DOCUSATE SODIUM 100 MG CAPSULE PO SCH ×2 (07:39→19:59)
[2018-11-12] MEDS: METOPROLOL SUCC 24HR ER 25 MG TAB.ER.24H. PO SCH (07:39)
[2018-11-12] MEDS: POLYETHYLENE GLYCOL 3350 17 GM PACKET. PO SCH (07:39)
[2018-11-12] MEDS: chlorproMAZINE HCL 25 MG TABLET PO SCH ×4 (07:39→20:00)
[2018-11-12] MEDS: PARoxetine 20 MG TABLET PO SCH (07:39)
[2018-11-12] MEDS: OLANZapine 5 MG TABLET PO SCH ×2 (07:39→19:59)
[2018-11-12] MEDS: TAMSULOSIN 0.4 MG CAP.ER.24H. PO SCH (07:39)
[2018-11-12] MEDS: ASPIRIN 81 MG TAB.CHEW PO SCH (07:39)
[2018-11-12] MEDS: levETIRAcetam 500 MG TABLET PO SCH ×2 (07:39→19:59)
[2018-11-12] MEDS: TIMOLOL 0.5% OPHTH SOLUTION 5ML BOTTLE. OU SCH ×2 (07:40→19:59)
[2018-11-12] MEDS: NEOMY/BACITR/POLYMYXIN OINT PACKET. TP SCH ×3 (07:40→20:00)
[2018-11-12 16:20] VITALS: BP 102/68
[2018-11-12] MEDS: LATANOPROST 0.005% OPHTH SOLUTION 2.5ML BOTTLE. OS SCH (19:58)
[2018-11-12] MEDS: cloZAPine 25 MG TABLET PO SCH (19:59)
[2018-11-12] MEDS: ATORVASTATIN CALCIUM 20 MG TABLET PO SCH (19:59)
--- NOTE | 2018-11-12 22:41 | PDOC ---
Exam Note: Shahram Note: Please also refer to the separate dictated note~for this date of service dictated separately.~Patient seen individually. Discussed the patient with Nursing staff reviewed the chart.~Reviewed interim history and current functioning. Reviewed vital signs,~Labs/ Radiology~and current medications noted below. Continue current treatment with the changes noted in the dictated addendum note Assessment: Vital Signs: Vital Signs Date Time Temp Pulse Resp B/P (MAP) Pulse Ox O2 Delivery O2 Flow Rate FiO2 11/12/18 16:20 97.9 71 19 102/68 (79) 96 11/10/18 16:56 Room Air I&O Intake and Output 11/12/18 07:00 Intake Total 840 ml Output Total 1900 ml Balance -1060 ml Intake Oral 840 ml Output Urine Total 1900 ml Current Medications: Meds: Current Medications Atorvastatin Calcium (Lipitor) 20 mg QHS PO Last administered on 11/12/18 19: 59; Start 11/03/18 at 21:00 Chlorpromazine HCl (Thorazine) 25 mg TIDWMEALS PO Last administered on 16:21; Start 11/04/18 at 08:00 Lisinopril (Prinivil) 10 mg DAILY PO Last administered on 11/12/18 07:38; Start 11/04/18 at 09:00 Metoprolol Succinate (Toprol Xl) 25 mg DAILY PO Last administered on 11/12/18at 07:39; Start 11/04/18 at 09:00 Tamsulosin HCl (Flomax) 0.4 mg DAILY PO Last administered on 11/12/18 07:39; Start 11/04/18 at 09:00 Aspirin (Children'S Aspirin) 81 mg DAILYWBKFT PO Last administered on 07:39; Start 11/04/18 at 08:00 Chlorpromazine HCl (Thorazine) 100 mg QHS PO Last administered on 11/12/18 20: 00; Start 11/03/18 at 21:00 Docusate Sodium (Colace) 100 mg BID PO Last administered on 11/12/18 19:59; Start 11/03/18 at 21:00 Latanoprost (Xalatan) 1 drop QHS OS Last administered on 11/12/18 19:58; Start 11/03/18 at 21:00 Levetiracetam (Keppra) 500 mg BID PO Last administered on 11/12/18 19:59; Start 11/03/18 at 21:00 Olanzapine (ZyPREXA) 5 mg BID PO Last administered on 11/12/18 19:59; Start at 21:00 Pantoprazole Sodium (Protonix) 40 mg DAILYAC PO Last administered on 11/04/18 08:23; Start 11/04/18 at 07:30; Stop 11/04/18 at 10:39; Status DC Paroxetine HCl (Paxil) 20 mg DAILY PO Last administered on 11/12/18 07:39; Start 11/04/18 at 09:00 Polyethylene Glycol (miraLAX) 17 gm DAILY PO Last administered on 11/12/18 07: 39; Start 11/04/18 at 09:00 Sennosides (Senna) 8.6 mg DAILY PO Last administered on 11/12/18 07:38; Start 11/04/18 at 09:00 Sucralfate (Carafate) 1 gm QID PO Last administered on 11/04/18 18:05; Start at 21:00; Stop 11/04/18 at 18:07; Status DC Timolol Maleate (Timoptic 0.5% Oph) 1 drop BID OU Last administered on 19:59; Start 11/03/18 at 21:00 Trazodone HCl (Desyrel) 50 mg PRN QHS PRN PO INSOMNIA Last administered on 11/07 21:31; Start 11/03/18 at 20:15 Acetaminophen (Tylenol) 650 mg PRN Q6HRS PRN PO PAIN / TEMP Last administered on 11/04/18 13:31; Start 11/03/18 at 20:00 Multi-Ingredient Ointment (Analgesic [place]) 1 avni PRN QID PRN TP MUSCLE PAIN; Start 11/03/18 at 20:00 Al Hydroxide/Mg Hydroxide (Mylanta Plus Xs) 15 ml PRN AFTMEALHC PRN PO DYSPEPSIA; Start 11/03/18 at 20:00 Magnesium Hydroxide (Milk Of Magnesia) 2,400 mg PRN QHS PRN PO CONSTIPATION Last administered on 11/08/18at 01:32; Start 11/03/18 at 20:00 Influenza Virus Vaccine (Afluria Trivalent 1113-2586 Syringe) 0.5 ml ONCE ONCE VAX IM ; Start 11/04/18 at 09:00; Stop 11/04/18 at 09:01; Status Cancel Pantoprazole Sodium (Protonix) 40 mg DAILY06 PO Last administered on 11/12/18at 05:48; Start 11/05/18 at 06:00 Neomycin/ Polymyxin/ Bacitracin (Triple Antibiotic) 1 avni TID TP Last administered on 11/07/18 07:36; Start 11/05/18 at 09:00; Stop 11/09/18 at 12:18 ; Status DC Sucralfate (Carafate) 1 gm QIDACHS PO Last administered on 11/12/18at 19:59; Start 11/04/18 at 21:00 Lorazepam (Ativan) 0.5 mg PRN Q2HR PRN PO ANXIETY / AGITATION Last administered on 11/07/18at 16:00; Start 11/05/18 at 09:15 Clozapine (Clozaril) 25 mg HS PO Last administered on 11/07/18 21:10; Start at 21:00; Stop 11/08/18 at 06:00; Status DC Clozapine (Clozaril) 50 mg QHS PO Last administered on 11/12/18at 19:59; Start 11/08/18 at 21:00 Neomycin/ Polymyxin/ Bacitracin (Triple Antibiotic Ointment) 1 pkt TID TP Last administered on 11/12/18at 20:00; Start 11/09/18 at 14:00 Vitamin D (Vitamin D3) 50,000 unit WEEKLY PO Last administered on 11/09/18at 19: 56; Start 11/09/18 at 18:15 Active Scripts Active Reported Trazodone Hcl 50 Mg Tablet 50 Mg PO PRN QHS PRN Timoptic (Timolol Maleate) 10 Ml Drops 1 Drop EACHEYE BID Tamsulosin Hcl 0.4 Mg Cap.er.24h 0.4 Mg PO DAILY Carafate (Sucralfate) 1 Gm Tablet 1 Gm PO QID Senna (Sennosides) 8.6 Mg Tablet 8.6 Mg PO DAILY Miralax (Polyethylene Glycol 3350) 17 Gm Powd.pack 1 Packet PO DAILY Paxil (Paroxetine Hcl) 20 Mg Tablet 20 Mg PO DAILY Prilosec Otc (Omeprazole Magnesium) 20 Mg Tablet.dr 40 Mg PO DAILY Olanzapine 5 Mg Tablet 5 Mg PO BID Toprol Xl (Metoprolol Succinate) 25 Mg Tab.er.24h 25 Mg PO DAILY Lisinopril 10 Mg Tablet 10 Mg PO DAILY Keppra (Levetiracetam) 500 Mg Tablet 500 Mg PO BID Latanoprost 2.5 Ml Drops 1 Drop OS QHS Docusate Sodium 100 Mg Capsule 100 Mg PO BID Chlorpromazine Hcl 100 Mg Tablet 100 Mg PO HS Chlorpromazine Hcl 25 Mg Tablet 25 Mg PO TIDWMEALS Lipitor (Atorvastatin Calcium) 20 Mg Tablet 20 Mg PO QHS Aspirin 81 Mg Tab.chew 81 Mg PO DAILY I have reviewed the current psychotropics carefully including drug interactions. Risk benefit ratio favors no change other than as noted in my dictated progress note. Diagnosis: Problems: (1) Anxiety disorder (2) Bipolar affective disorder, mixed (3) Major depressive disorder, recurrent episode (4) Mild cognitive impairment ANASTACIO REED MD Nov 12, 2018 22:41
--- NOTE | 2018-11-12 23:25 | PN ---
DATE: 11/10/2018 PSYCHIATRIC PROGRESS NOTE This late entry 11/10/2018 covers elements not covered in my initial note. SUBJECTIVE: I met with the patient in the evening. The patient slept 6-1/2 hours previous night. At night, he was manipulative, pretending that he could not hear or acting confused, was telling lies to nursing staff regarding medications and was telling his that staff had turned off the heat in his room. He is somewhat labile and is more dramatic, manipulative per nursing report. He has done better during the day on 11/10/2018. REVIEW OF SYSTEMS: Ambulation impaired, in wheelchair. No CV, , pulmonary, eye, ENT system symptoms on review, does complain of being tired. MENTAL STATUS EXAM: Reasonably oriented. Speech has some latency, coherent. Abstraction fair, computation impaired, language function intact, attention span short. Mood and affect somewhat withdrawn. LABORATORY DATA: Reviewed. IMPRESSION: Unchanged from initial note. PLAN: No change from initial note. Valproic acid cannot be used because he is allergic to it and may gradually adjusting the Clozaril maintaining the chlorpromazine and then we will reduce of chlorpromazine gradually. ANASTACIO REED MD DR: CRYSTAL/nicole JOB#: [id number] / [id number]
--- NOTE | 2018-11-12 23:28 | PN ---
DATE: 11/11/2018 PSYCHIATRIC PROGRESS NOTE This late entry 11/11/2018 covers elements not covered in my initial note. SUBJECTIVE: I met with the patient in the evening. The patient slept 8-3/4 hours previous evening. He may have a UTI. UA is positive. Reported to culture and sensitivity is awaited. REVIEW OF SYSTEMS: Positive for some impaired ambulation, in wheelchair. No CV, , pulmonary, eye system symptoms on review. Does admit to being tired. MENTAL STATUS EXAM: Oriented to himself and situation. Speech has some latency, coherent. Abstraction fair, computation impaired, language function intact, attention span short. Mood and affect somewhat anxious, labile at times, manipulative, but improved. LABORATORY DATA: Reviewed. IMPRESSION: Bipolar 1 disorder, mixed with psychotic features. Rest unchanged. PLAN: Continue current psychotropics, treat the UTI per Dr. Robertson. Adjust Clozaril neutrophil count. MAN Villa REED MD DR: CRYSTAL/nicole JOB#: [id number] / [id number]
[2018-11-13] MEDS: PANTOPRAZOLE 40 MG TABLET. PO SCH (05:23)
[2018-11-13 06:20] VITALS: BP 127/85
[2018-11-13] MEDS: chlorproMAZINE HCL 25 MG TABLET PO SCH ×4 (07:50→20:41)
[2018-11-13] MEDS: levETIRAcetam 500 MG TABLET PO SCH ×2 (07:50→20:41)
[2018-11-13] MEDS: SUCRALFATE 1 GM TABLET. PO SCH ×4 (07:50→20:41)
[2018-11-13] MEDS: ASPIRIN 81 MG TAB.CHEW PO SCH (07:50)
[2018-11-13] MEDS: SENNOSIDES 8.6 MG TABLET PO SCH (07:50)
[2018-11-13] MEDS: TAMSULOSIN 0.4 MG CAP.ER.24H. PO SCH (07:50)
[2018-11-13] MEDS: DOCUSATE SODIUM 100 MG CAPSULE PO SCH ×2 (07:51→20:41)
[2018-11-13] MEDS: POLYETHYLENE GLYCOL 3350 17 GM PACKET. PO SCH ×2 (07:51→08:47)
[2018-11-13] MEDS: TIMOLOL 0.5% OPHTH SOLUTION 5ML BOTTLE. OU SCH ×3 (07:51→20:40)
[2018-11-13] MEDS: PARoxetine 20 MG TABLET PO SCH (07:51)
[2018-11-13] MEDS: NEOMY/BACITR/POLYMYXIN OINT PACKET. TP SCH ×4 (07:53→20:41)
[2018-11-13] MEDS: METOPROLOL SUCC 24HR ER 25 MG TAB.ER.24H. PO SCH (07:54)
[2018-11-13] MEDS: OLANZapine 5 MG TABLET PO SCH ×2 (07:54→20:41)
[2018-11-13] MEDS: LISINOPRIL 10 MG TABLET PO SCH (07:59)
[2018-11-13 16:25] VITALS: BP 105/68
[2018-11-13 20:20] LABS: BASO % 1 % (0-3); EOS # 0.2 x10^3/uL (0.0-0.7); EOS % 4 % (0-3); HEMATOCRIT 36.6 % (39.0-53.0); HEMOGLOBIN 12.9 g/dL (13.0-17.5); LYMPH # 1.8 x10^3/uL (1.0-4.8); LYMPH % 28 % (24-48); MEAN CORPUSCULAR HEMOGLOBIN 34 pg (25-35); MEAN CORPUSCULAR HGB CONC 35 g/dL (31-37); MEAN CORPUSCULAR VOLUME 96 fL (79-100); MONO # 0.6 x10^3/uL (0.0-1.1); MONO % 9 % (0-9); NEUT # 3.9 x10^3uL (1.8-7.7); NEUT % 59 % (31-73); PLATELET COUNT 238 x10^3/uL (140-400); RED BLOOD COUNT 3.82 x10^6/uL (4.30-5.70); RED CELL DISTRIBUTION WIDTH 13.2 % (11.5-14.5); WHITE BLOOD COUNT 6.5 x10^3/uL (4.0-11.0)
[2018-11-13 20:31] LABS: ALBUMIN 3.3 g/dL (3.4-5.0); CALCIUM 9.1 mg/dL (8.5-10.1); CREATININE 0.9 mg/dL (0.7-1.3); GFR 83.9; TOTAL BILIRUBIN 0.5 mg/dL (0.2-1.0); TOTAL PROTEIN 6.6 g/dL (6.4-8.2)
[2018-11-13] MEDS: ATORVASTATIN CALCIUM 20 MG TABLET PO SCH (20:41)
[2018-11-13] MEDS: LATANOPROST 0.005% OPHTH SOLUTION 2.5ML BOTTLE. OS SCH (20:41)
[2018-11-13] MEDS: cloZAPine 25 MG TABLET PO SCH (20:41)
--- NOTE | 2018-11-13 22:29 | PDOC ---
Exam Note: Shahram Note: Please also refer to the separate dictated note~for this date of service dictated separately.~Patient seen individually. Discussed the patient with Nursing staff reviewed the chart.~Reviewed interim history and current functioning. Reviewed vital signs,~Labs/ Radiology~and current medications noted below. Continue current treatment with the changes noted in the dictated addendum note Assessment: Vital Signs: Vital Signs Date Time Temp Pulse Resp B/P (MAP) Pulse Ox O2 Delivery O2 Flow Rate FiO2 11/13/18 16:25 98.2 78 16 105/68 (80) 98 11/10/18 16:56 Room Air I&O Intake and Output 11/13/18 07:00 Intake Total 840 ml Output Total 1800 ml Balance -960 ml Intake Oral 840 ml Output Urine Total 1800 ml # Bowel Movements 2 Labs: Laboratory Tests Test 11/13/18 20:00 White Blood Count 6.5 x10^3/uL (4.0-11.0) Red Blood Count 3.82 x10^6/uL (4.30-5.70) L Hemoglobin 12.9 g/dL (13.0-17.5) L Hematocrit 36.6 % (39.0-53.0) L Mean Corpuscular Volume 96 fL (79-100) Mean Corpuscular Hemoglobin 34 pg (25-35) Mean Corpuscular Hemoglobin Concent 35 g/dL (31-37) Red Cell Distribution Width 13.2 % (11.5-14.5) Platelet Count 238 x10^3/uL (140-400) Neutrophils (%) (Auto) 59 % (31-73) Lymphocytes (%) (Auto) 28 % (24-48) Monocytes (%) (Auto) 9 % (0-9) Eosinophils (%) (Auto) 4 % (0-3) H Basophils (%) (Auto) 1 % (0-3) Neutrophils # (Auto) 3.9 x10^3uL (1.8-7.7) Lymphocytes # (Auto) 1.8 x10^3/uL (1.0-4.8) Monocytes # (Auto) 0.6 x10^3/uL (0.0-1.1) Eosinophils # (Auto) 0.2 x10^3/uL (0.0-0.7) Basophils # (Auto) 0.0 x10^3/uL (0.0-0.2) Sodium Level 143 mmol/L (136-145) Potassium Level 4.0 mmol/L (3.5-5.1) Chloride Level 103 mmol/L (98-107) Carbon Dioxide Level 31 mmol/L (21-32) Anion Gap 9 (6-14) Blood Urea Nitrogen 16 mg/dL (8-26) Creatinine 0.9 mg/dL (0.7-1.3) Estimated GFR (Cockcroft-Gault) 83.9 BUN/Creatinine Ratio 18 (6-20) Glucose Level 104 mg/dL (70-99) H Calcium Level 9.1 mg/dL (8.5-10.1) Total Bilirubin 0.5 mg/dL (0.2-1.0) Aspartate Amino Transferase (AST) 17 U/L (15-37) Alanine Aminotransferase (ALT) 24 U/L (16-63) Alkaline Phosphatase 82 U/L (46-116) Total Protein 6.6 g/dL (6.4-8.2) Albumin 3.3 g/dL (3.4-5.0) L Albumin/Globulin Ratio 1.0 (1.0-1.7) Current Medications: Meds: Current Medications Atorvastatin Calcium (Lipitor) 20 mg QHS PO Last administered on 11/13/18at 20: 41; Start 11/03/18 at 21:00 Chlorpromazine HCl (Thorazine) 25 mg TIDWMEALS PO Last administered on 16:49; Start 11/04/18 at 08:00 Lisinopril (Prinivil) 10 mg DAILY PO Last administered on 11/13/18 07:59; Start 11/04/18 at 09:00 Metoprolol Succinate (Toprol Xl) 25 mg DAILY PO Last administered on 11/13/18 07:54; Start 11/04/18 at 09:00 Tamsulosin HCl (Flomax) 0.4 mg DAILY PO Last administered on 11/13/18 07:50; Start 11/04/18 at 09:00 Aspirin (Children'S Aspirin) 81 mg DAILYWBKFT PO Last administered on 07:50; Start 11/04/18 at 08:00 Chlorpromazine HCl (Thorazine) 100 mg QHS PO Last administered on 11/13/18 20: 41; Start 11/03/18 at 21:00 Docusate Sodium (Colace) 100 mg BID PO Last administered on 11/13/18 20:41; Start 11/03/18 at 21:00 Latanoprost (Xalatan) 1 drop QHS OS Last administered on 11/13/18 20:41; Start 11/03/18 at 21:00 Levetiracetam (Keppra) 500 mg BID PO Last administered on 11/13/18 20:41; Start 11/03/18 at 21:00 Olanzapine (ZyPREXA) 5 mg BID PO Last administered on 11/13/18 20:41; Start at 21:00 Pantoprazole Sodium (Protonix) 40 mg DAILYAC PO Last administered on 11/04/18 08:23; Start 11/04/18 at 07:30; Stop 11/04/18 at 10:39; Status DC Paroxetine HCl (Paxil) 20 mg DAILY PO Last administered on 11/13/18 07:51; Start 11/04/18 at 09:00 Polyethylene Glycol (miraLAX) 17 gm DAILY PO Last administered on 11/12/18 07: 39; Start 11/04/18 at 09:00 Sennosides (Senna) 8.6 mg DAILY PO Last administered on 11/13/18 07:50; Start 11/04/18 at 09:00 Sucralfate (Carafate) 1 gm QID PO Last administered on 11/04/18 18:05; Start at 21:00; Stop 11/04/18 at 18:07; Status DC Timolol Maleate (Timoptic 0.5% [facility]) 1 drop BID OU Last administered on 20:40; Start 11/03/18 at 21:00 Trazodone HCl (Desyrel) 50 mg PRN QHS PRN PO INSOMNIA Last administered on 11/07 21:31; Start 11/03/18 at 20:15 Acetaminophen (Tylenol) 650 mg PRN Q6HRS PRN PO PAIN / TEMP Last administered on 11/04/18 13:31; Start 11/03/18 at 20:00 Multi-Ingredient Ointment (Analgesic [place]) 1 avni PRN QID PRN TP MUSCLE PAIN; Start 11/03/18 at 20:00 Al Hydroxide/Mg Hydroxide (Mylanta Plus Xs) 15 ml PRN AFTMEALHC PRN PO DYSPEPSIA; Start 11/03/18 at 20:00 Magnesium Hydroxide (Milk Of Magnesia) 2,400 mg PRN QHS PRN PO CONSTIPATION Last administered on 11/08/18at 01:32; Start 11/03/18 at 20:00 Influenza Virus Vaccine (Afluria Trivalent 6424-5400 Syringe) 0.5 ml ONCE ONCE VAX IM ; Start 11/04/18 at 09:00; Stop 11/04/18 at 09:01; Status Cancel Pantoprazole Sodium (Protonix) 40 mg DAILY06 PO Last administered on 11/13/18 05:23; Start 11/05/18 at 06:00 Neomycin/ Polymyxin/ Bacitracin (Triple Antibiotic) 1 avni TID TP Last administered on 11/07/18 07:36; Start 11/05/18 at 09:00; Stop 11/09/18 at 12:18 ; Status DC Sucralfate (Carafate) 1 gm QIDACHS PO Last administered on 11/13/18 20:41; Start 11/04/18 at 21:00 Lorazepam (Ativan) 0.5 mg PRN Q2HR PRN PO ANXIETY / AGITATION Last administered on 11/07/18 16:00; Start 11/05/18 at 09:15 Clozapine (Clozaril) 25 mg HS PO Last administered on 11/07/18 21:10; Start at 21:00; Stop 11/08/18 at 06:00; Status DC Clozapine (Clozaril) 50 mg QHS PO Last administered on 11/13/18 20:41; Start 11/08/18 at 21:00 Neomycin/ Polymyxin/ Bacitracin (Triple Antibiotic Ointment) 1 pkt TID TP Last administered on 11/13/18 20:41; Start 11/09/18 at 14:00 Vitamin D (Vitamin D3) 50,000 unit WEEKLY PO Last administered on 11/09/18 19: 56; Start 11/09/18 at 18:15 Active Scripts Active Reported Trazodone Hcl 50 Mg Tablet 50 Mg PO PRN QHS PRN Timoptic (Timolol Maleate) 10 Ml Drops 1 Drop EACHEYE BID Tamsulosin Hcl 0.4 Mg Cap.er.24h 0.4 Mg PO DAILY Carafate (Sucralfate) 1 Gm Tablet 1 Gm PO QID Senna (Sennosides) 8.6 Mg Tablet 8.6 Mg PO DAILY Miralax (Polyethylene Glycol 3350) 17 Gm Powd.pack 1 Packet PO DAILY Paxil (Paroxetine Hcl) 20 Mg Tablet 20 Mg PO DAILY Prilosec Otc (Omeprazole Magnesium) 20 Mg Tablet.dr 40 Mg PO DAILY Olanzapine 5 Mg Tablet 5 Mg PO BID Toprol Xl (Metoprolol Succinate) 25 Mg Tab.er.24h 25 Mg PO DAILY Lisinopril 10 Mg Tablet 10 Mg PO DAILY Keppra (Levetiracetam) 500 Mg Tablet 500 Mg PO BID Latanoprost 2.5 Ml Drops 1 Drop OS QHS Docusate Sodium 100 Mg Capsule 100 Mg PO BID Chlorpromazine Hcl 100 Mg Tablet 100 Mg PO HS Chlorpromazine Hcl 25 Mg Tablet 25 Mg PO TIDWMEALS Lipitor (Atorvastatin Calcium) 20 Mg Tablet 20 Mg PO QHS Aspirin 81 Mg Tab.chew 81 Mg PO DAILY I have reviewed the current psychotropics carefully including drug interactions. Risk benefit ratio favors no change other than as noted in my dictated progress note. Diagnosis: Problems: (1) Anxiety disorder (2) Bipolar affective disorder, mixed (3) Major depressive disorder, recurrent episode (4) Mild cognitive impairment ANASTACIO REED MD Nov 13, 2018 22:29
[2018-11-14] MEDS: PANTOPRAZOLE 40 MG TABLET. PO SCH (06:00)
[2018-11-14 06:06] VITALS: BP 115/76
[2018-11-14] MEDS: SUCRALFATE 1 GM TABLET. PO SCH ×3 (07:43→16:33)
[2018-11-14] MEDS: TAMSULOSIN 0.4 MG CAP.ER.24H. PO SCH (08:49)
[2018-11-14] MEDS: SENNOSIDES 8.6 MG TABLET PO SCH (08:49)
[2018-11-14] MEDS: levETIRAcetam 500 MG TABLET PO SCH (08:49)
[2018-11-14] MEDS: LISINOPRIL 10 MG TABLET PO SCH (08:49)
[2018-11-14] MEDS: PARoxetine 20 MG TABLET PO SCH (08:49)
[2018-11-14] MEDS: OLANZapine 5 MG TABLET PO SCH (08:49)
[2018-11-14] MEDS: DOCUSATE SODIUM 100 MG CAPSULE PO SCH (08:50)
[2018-11-14] MEDS: POLYETHYLENE GLYCOL 3350 17 GM PACKET. PO SCH (08:50)
[2018-11-14] MEDS: ASPIRIN 81 MG TAB.CHEW PO SCH (08:50)
[2018-11-14] MEDS: METOPROLOL SUCC 24HR ER 25 MG TAB.ER.24H. PO SCH (08:50)
[2018-11-14] MEDS: TIMOLOL 0.5% OPHTH SOLUTION 5ML BOTTLE. OU SCH (08:52)
[2018-11-14] MEDS: chlorproMAZINE HCL 25 MG TABLET PO SCH ×3 (08:52→17:08)
[2018-11-14] MEDS: NEOMY/BACITR/POLYMYXIN OINT PACKET. TP SCH ×2 (08:53→13:59)
[2018-11-14 16:32] VITALS: BP 110/66
[2018-11-14] MEDS ORDERED: CLOZ100T7 PO (18:12)
[2018-11-14] MEDS ORDERED: ACET500T68 PO (18:15)
[2018-11-14] MEDS ORDERED: LORA-254 PO (18:17)
[2018-11-14] MEDS ORDERED: MAG355OR11 PO (18:21)
[2018-11-14] MEDS ORDERED: MAGN2400 PO (18:24)
[2018-11-14] MEDS ORDERED: TAMS0.4C97 PO (18:32)
[2018-11-14 19:10] LABS: THYROXINE 5.9 ug/dL (4.5-12.0)
[2018-11-14] MEDS ORDERED: CHOL500021 PO (19:38)
[2018-11-14] MEDS ORDERED: PANT40TA3 PO (19:38)
[2018-11-14] MEDS ORDERED: METH29OI TP (19:38)
[2018-11-14] MEDS ORDERED: cloZAPine 25 MG TABLET PO SCH (21:00)
--- NOTE | 2018-11-14 22:22 | PN ---
DATE: 11/12/2018 PSYCHIATRIC PROGRESS NOTE This late entry 11/12/2018 covers elements not covered in my initial note. SUBJECTIVE: I met with the patient in the evening. The patient slept 6-3/4 hours previous night. Urine C and S is still awaited. He is quite obsessed about this anxious, understandably, so as I met with him. REVIEW OF SYSTEMS: Ambulation impaired, in wheelchair. No CV, , pulmonary, eye, ENT system symptoms on review. MENTAL STATUS EXAM: Oriented to himself and situation. Speech has some latency, coherent. Abstraction fair, computation impaired, language function intact, attention span short. Mood and affect somewhat withdrawn, anxious at times. LABORATORY DATA: Reviewed. IMPRESSION: Unchanged from initial note. PLAN: No change from initial note. Treat UTI per Dr. Robertson once we received the sensitivity report. Rest unchanged. MAN Villa REED MD DR: CRYSTAL/nicole JOB#: [id number] / [id number]
--- NOTE | 2018-11-14 22:24 | PN ---
DATE: 11/13/2018 PSYCHIATRIC PROGRESS NOTE This late entry 11/13/2018 covers elements not covered in my initial note. SUBJECTIVE: I met with the patient in the evening. The patient slept 7-1/4 hours previous night. He remains somewhat withdrawn. Urine C and S report is awaited. Defer to Dr. Robertson. REVIEW OF SYSTEMS: Ambulation impaired, in wheelchair. No CV, , pulmonary, eye, ENT system symptoms on review. MENTAL STATUS EXAM: Oriented to himself, situation. Speech has some latency, coherent. Abstraction fair, computation impaired, language function intact. Mood and affect somewhat withdrawn. LABORATORY DATA: Reviewed. IMPRESSION: Unchanged from initial note. PLAN: No change from initial note. We are awaiting results of absolute neutrophil count and if this is unremarkable, we will increase Clozaril. MAN Villa REED MD DR: CRYSTAL/nicole JOB#: [id number] / [id number]
--- NOTE | 2018-11-14 22:32 | PDOC ---
Exam Note: Shahram Note: Please also refer to the separate dictated note~for this date of service dictated separately.~Patient seen individually. Discussed the patient with Nursing staff reviewed the chart.~Reviewed interim history and current functioning. Reviewed vital signs,~Labs/ Radiology~and current medications noted below. Continue current treatment with the changes noted in the dictated addendum note Assessment: Vital Signs: Vital Signs Date Time Temp Pulse Resp B/P (MAP) Pulse Ox O2 Delivery O2 Flow Rate FiO2 11/14/18 16:32 97.4 84 18 110/66 (81) 96 Room Air I&O Intake and Output 11/14/18 07:00 Intake Total 960 ml Output Total 1650 ml Balance -690 ml Intake Oral 960 ml Output Urine Total 1650 ml Labs: Laboratory Tests Test 11/14/18 07:35 Free Thyroxine 0.90 ng/dL (0.76-1.46) Thyroxine (T4) 5.9 ug/dL (4.5-12.0) Total Triiodothyronine (TT3) 75 ng/dL (71-180) Current Medications: Meds: Current Medications Atorvastatin Calcium (Lipitor) 20 mg QHS PO Last administered on 11/13/18at 20: 41; Start 11/03/18 at 21:00; Stop 11/14/18 at 19:08; Status DC Chlorpromazine HCl (Thorazine) 25 mg TIDWMEALS PO Last administered on at 17:08; Start 11/04/18 at 08:00; Stop 11/14/18 at 19:08; Status DC Lisinopril (Prinivil) 10 mg DAILY PO Last administered on 11/14/18at 08:49; Start 11/04/18 at 09:00; Stop 11/14/18 at 19:08; Status DC Metoprolol Succinate (Toprol Xl) 25 mg DAILY PO Last administered on 11/14/18at 08:50; Start 11/04/18 at 09:00; Stop 11/14/18 at 19:08; Status DC Tamsulosin HCl (Flomax) 0.4 mg DAILY PO Last administered on 11/14/18at 08:49; Start 11/04/18 at 09:00; Stop 11/14/18 at 19:08; Status DC Aspirin (Children'S Aspirin) 81 mg DAILYWBKFT PO Last administered on 08:50; Start 11/04/18 at 08:00; Stop 11/14/18 at 19:08; Status DC Chlorpromazine HCl (Thorazine) 100 mg QHS PO Last administered on 11/13/18 20: 41; Start 11/03/18 at 21:00; Stop 11/14/18 at 19:08; Status DC Docusate Sodium (Colace) 100 mg BID PO Last administered on 11/14/18 08:50; Start 11/03/18 at 21:00; Stop 11/14/18 at 19:08; Status DC Latanoprost (Xalatan) 1 drop QHS OS Last administered on 11/13/18 20:41; Start 11/03/18 at 21:00; Stop 11/14/18 at 19:08; Status DC Levetiracetam (Keppra) 500 mg BID PO Last administered on 11/14/18 08:49; Start 11/03/18 at 21:00; Stop 11/14/18 at 19:08; Status DC Olanzapine (ZyPREXA) 5 mg BID PO Last administered on 11/14/18 08:49; Start at 21:00; Stop 11/14/18 at 19:08; Status DC Pantoprazole Sodium (Protonix) 40 mg DAILYAC PO Last administered on 11/04/18 08:23; Start 11/04/18 at 07:30; Stop 11/04/18 at 10:39; Status DC Paroxetine HCl (Paxil) 20 mg DAILY PO Last administered on 11/14/18 08:49; Start 11/04/18 at 09:00; Stop 11/14/18 at 19:08; Status DC Polyethylene Glycol (miraLAX) 17 gm DAILY PO Last administered on 11/14/18 08: 50; Start 11/04/18 at 09:00; Stop 11/14/18 at 19:08; Status DC Sennosides (Senna) 8.6 mg DAILY PO Last administered on 11/14/18 08:49; Start 11/04/18 at 09:00; Stop 11/14/18 at 19:08; Status DC Sucralfate (Carafate) 1 gm QID PO Last administered on 11/04/18 18:05; Start at 21:00; Stop 11/04/18 at 18:07; Status DC Timolol Maleate (Timoptic 0.5% Ophth) 1 drop BID OU Last administered on 08:52; Start 11/03/18 at 21:00; Stop 11/14/18 at 19:08; Status DC Trazodone HCl (Desyrel) 50 mg PRN QHS PRN PO INSOMNIA Last administered on 11/07 21:31; Start 11/03/18 at 20:15; Stop 11/14/18 at 19:08; Status DC Acetaminophen (Tylenol) 650 mg PRN Q6HRS PRN PO PAIN / TEMP Last administered on 11/04/18 13:31; Start 11/03/18 at 20:00; Stop 11/14/18 at 19:08; Status DC Multi-Ingredient Ointment (Analgesic [place]) 1 jose elias PRN QID PRN TP MUSCLE PAIN; Start 11/03/18 at 20:00; Stop 11/14/18 at 19:08; Status DC Al Hydroxide/Mg Hydroxide (Mylanta Plus Xs) 15 ml PRN AFTMEALHC PRN PO DYSPEPSIA; Start 11/03/18 at 20:00; Stop 11/14/18 at 19:08; Status DC Magnesium Hydroxide (Milk Of Magnesia) 2,400 mg PRN QHS PRN PO CONSTIPATION Last administered on 11/08/18 01:32; Start 11/03/18 at 20:00; Stop 11/14/18 at 19:08; Status DC Influenza Virus Vaccine (Afluria Trivalent [id number] Syringe) 0.5 ml ONCE ONCE VAX IM ; Start 11/04/18 at 09:00; Stop 11/04/18 at 09:01; Status Cancel Pantoprazole Sodium (Protonix) 40 mg DAILY06 PO Last administered on 11/14/18 06:00; Start 11/05/18 at 06:00; Stop 11/14/18 at 19:08; Status DC Neomycin/ Polymyxin/ Bacitracin (Triple Antibiotic) 1 jose elias TID TP Last administered on 11/07/18at 07:36; Start 11/05/18 at 09:00; Stop 11/09/18 at 12:18 ; Status DC Sucralfate (Carafate) 1 gm QIDACHS PO Last administered on 11/14/18 16:33; Start 11/04/18 at 21:00; Stop 11/14/18 at 19:08; Status DC Lorazepam (Ativan) 0.5 mg PRN Q2HR PRN PO ANXIETY / AGITATION Last administered on 11/07/18 16:00; Start 11/05/18 at 09:15; Stop 11/14/18 at 19:08 ; Status DC Clozapine (Clozaril) 25 mg HS PO Last administered on 11/07/18 21:10; Start at 21:00; Stop 11/08/18 at 06:00; Status DC Clozapine (Clozaril) 50 mg QHS PO Last administered on 11/13/18at 20:41; Start 11/08/18 at 21:00; Stop 11/14/18 at 16:48; Status DC Neomycin/ Polymyxin/ Bacitracin (Triple Antibiotic Ointment) 1 pkt TID TP Last administered on 11/14/18 08:53; Start 11/09/18 at 14:00; Stop 11/14/18 at 19:08 ; Status DC Vitamin D (Vitamin D3) 50,000 unit WEEKLY PO Last administered on 11/09/18at 19: 56; Start 11/09/18 at 18:15; Stop 11/14/18 at 19:08; Status DC Clozapine (Clozaril) 75 mg QHS PO ; Start 11/14/18 at 21:00; Stop 11/14/18 at 21 :00; Status DC Active Scripts Active Reported Protonix (Pantoprazole Sodium) 40 Mg Tablet.dr 40 Mg PO DAILY06 Analgesic [place] (Methyl Salicylate/Menthol) 28 Gm Oint...g. 1 Jose Elias TP PRN QID PRN D3-50 (Cholecalciferol (Vitamin D3)) 50,000 Unit Capsule 50,000 Unit PO WEEKLY Milk Of Magnesia (Magnesium Hydroxide) 2,400 Mg/10 Ml Oral.susp 2,400 Mg PO QHS PRN Maalox Advanced Suspension (Mag Hydrox/Aluminum Hyd/Simeth) 355 Ml Oral.susp 15 Ml PO PRN AFTMEAL PRN Ativan (Lorazepam) 1 Mg Tablet 0.5 Mg PO Q2HR PRN MDD 2mg/24 hours Acetaminophen 500 Mg Tablet 650 Mg PO Q6HRS PRN Clozapine 100 Mg Tablet 75 Mg PO QHS Trazodone Hcl 50 Mg Tablet 50 Mg PO PRN QHS PRN Timoptic (Timolol Maleate) 10 Ml Drops 1 Drop EACHEYE BID Tamsulosin Hcl 0.4 Mg Cap.er.24h 0.4 Mg PO DAILY Carafate (Sucralfate) 1 Gm Tablet 1 Gm PO QID Senna (Sennosides) 8.6 Mg Tablet 8.6 Mg PO DAILY Miralax (Polyethylene Glycol 3350) 17 Gm Powd.pack 1 Packet PO DAILY Paxil (Paroxetine Hcl) 20 Mg Tablet 20 Mg PO DAILY Prilosec Otc (Omeprazole Magnesium) 20 Mg Tablet.dr 40 Mg PO DAILY Olanzapine 5 Mg Tablet 5 Mg PO BID Toprol Xl (Metoprolol Succinate) 25 Mg Tab.er.24h 25 Mg PO DAILY Lisinopril 10 Mg Tablet 10 Mg PO DAILY Keppra (Levetiracetam) 500 Mg Tablet 500 Mg PO BID Latanoprost 2.5 Ml Drops 1 Drop OS QHS Docusate Sodium 100 Mg Capsule 100 Mg PO BID Chlorpromazine Hcl 100 Mg Tablet 100 Mg PO HS Chlorpromazine Hcl 25 Mg Tablet 25 Mg PO TIDWMEALS Lipitor (Atorvastatin Calcium) 20 Mg Tablet 20 Mg PO QHS Aspirin 81 Mg Tab.chew 81 Mg PO DAILY I have reviewed the current psychotropics carefully including drug interactions. Risk benefit ratio favors no change other than as noted in my dictated progress note. Diagnosis: Problems: (1) Anxiety disorder (2) Bipolar affective disorder, mixed (3) Major depressive disorder, recurrent episode (4) Mild cognitive impairment ANASTACIO REED MD Nov 14, 2018 22:32
--- NOTE | 2018-11-15 18:27 | DS ---
DATE OF DISCHARGE: 11/14/2018 DISCHARGE SUMMARY AND PSYCHIATRIC PROGRESS NOTE This is a late entry, date of service 11/03/2018 covers elements not covered in my initial note. SUBJECTIVE: I met with the patient in the evening. REASON FOR ADMISSION: Please refer to the admission history for details. Briefly, the patient is a 68-year-old male referred to us from [facility] where he presented from home on account of marked worsening of his mood swings and significant psychosomatic symptoms fixation on physical complaints, stating he can no longer take care of himself even though he was living at home by himself. He was having a decompensation of his bipolar disorder with anxiety, panic attacks and was referred to us after medical stabilization at [facility]. SIGNIFICANT FINDINGS AND CLINICAL COURSE: Following admission, the patient was seen daily individually by myself from a psychiatric standpoint, medical followup with Dr. Robertson. Review of his history was indicative of allergies to 52 medications, most of which were psychotropics including all mood stabilizers and most antipsychotics. He is paranoid, psychotic, having mood swings with marked somatic preoccupation. It was determined that the consideration could be given to starting him on Clozaril and this was initiated 25 mg at bedtime and gradually was being increased with weekly absolute neutrophil counts. He seemed to be doing a little better then developed complicated UTI requiring intravenous vancomycin and was transferred to [facility] on 11/14/2018. Prior to discharge on 11/14/2018 ambulation impaired, in wheelchair. No CV, , pulmonary system symptoms on review, though he is having vague somatic symptoms. MENTAL STATUS EXAM: Oriented to himself and situation. Speech has some latency, coherent, low in volume. Abstraction fair, computation impaired, language function intact, attention span short. Mood and affect somewhat anxious, labile at times. LABORATORY DATA: Reviewed. FINAL DIAGNOSES: Bipolar 1 disorder, mixed with psychotic features, in partial remission; anxiety disorder, unspecified; impulse control disorder, unspecified; urinary tract infection. Rest diagnoses unchanged from admission. DISCHARGE MEDICATIONS: Please refer to the MRAD. DISCHARGE INSTRUCTIONS: Psychiatric and medical followup on [facility] per Dr. Robertson. Time for discharge day management greater than 30 minutes. MAN Villa REED MD DR: CRYSTAL/nicole JOB#: [id number] / [id number]
[2018-11-16] MEDS ORDERED: LEVO750T31 PO (15:57)
== END 2018-11-14 18:40 | disposition short-term general hospital (02) | DRG 885 ==
LOC: EEVIPCON → GEROPSY 17:20
PROVIDERS: ADMIT Psychiatry & Neurology Psychiatry; ATTEND Psychiatry & Neurology Psychiatry
PROC: 5A09357 Assistance with Respiratory Ventilation, Less than 24 Consecutive Hours, Continuous Positive Airway Pressure (ICD-10-PCS; principal; 2018-11-07)
DX: F31.64 Bipolar disorder, current episode mixed, severe, with psychotic features (principal); E44.0 Moderate protein-calorie malnutrition; N39.0 Urinary tract infection, site not specified; G31.84 Mild cognitive impairment of uncertain or unknown etiology; F41.0 Panic disorder [episodic paroxysmal anxiety]; G89.29 Other chronic pain; K59.09 Other constipation; E78.5 Hyperlipidemia, unspecified; F09 Unspecified mental disorder due to known physiological condition; F63.9 Impulse disorder, unspecified; G47.30 Sleep apnea, unspecified; I10 Essential (primary) hypertension; I25.10 Atherosclerotic heart disease of native coronary artery without angina pectoris; K21.9 Gastro-esophageal reflux disease without esophagitis; Z79.899 Other long term (current) drug therapy; Z68.24 Body mass index [BMI] 24.0-24.9, adult; Z95.1 Presence of aortocoronary bypass graft; Z88.8 Allergy status to other drugs, medicaments and biological substances
CPT/HCPCS: 36415; 80053; 80061; 81001; 82306; 82947; 83036; 83540; 83550; 83735; 84436; 84439; 84443; 84480; 85025; 86592; 87086; 87186; Q0161; 97110; 97116; 97530; 97535

== ENCOUNTER 2018-11-14 17:29 | Inpatient (IN) | payer MEDICARE ==
[~2018-11-14] VITALS: Ht 172.7 cm; Wt 73.9 kg
[~2018-11-14 17:29] MED LIST: ASPI-630 PO; ATOR20TA PO; CHLO100T6 PO; CHLO25TA4 PO; DOCU100C28 PO; LATA2.5D3 OS; LEVE500T56 PO; LISI10TA2 PO; METO25TA2 PO; OLAN5TAB9 PO; OMEP20TA63 PO; PARO20TA99 PO; POLY17PO5 PO; SENN-80 PO; SUCR1TAB35 PO; TAMS0.4C2 PO; TIMO10DR5 EACHEYE; TRAZ-120 PO
[2018-11-14] MEDS ORDERED: CLOZ100T7 PO (18:12)
[2018-11-14] MEDS ORDERED: ACET500T68 PO (18:15)
[2018-11-14] MEDS ORDERED: LORA-254 PO (18:17)
[2018-11-14] MEDS ORDERED: MAG355OR11 PO (18:21)
[2018-11-14] MEDS ORDERED: MAGN2400 PO (18:24)
[2018-11-14] MEDS ORDERED: TAMS0.4C97 PO (18:32)
[2018-11-14 19:15] VITALS: BP 100/63
[2018-11-14] MEDS ORDERED: LORazepam 0.5 MG TABLET PO PRN (19:15)
[2018-11-14] MEDS ORDERED: METHYL SALICYLATE/MENTHOL TOPICAL OINTMENT 29GM TUBE. TP PRN (19:15)
--- NOTE | 2018-11-14 19:30 | NUR ---
Pt admitted from [facility] to [facility] room 109 via wheelchair @ 1830. Pt oriented to unit, nurse, call light and plan of care. V/U stated. A full assessment completed by Gladys HOLLINGSWORTH. History obtained via records. Pt positioned to comfort will continue with admission orders.
[2018-11-14] MEDS ORDERED: CHOL500021 PO (19:38)
[2018-11-14] MEDS ORDERED: PANT40TA3 PO (19:38)
[2018-11-14] MEDS ORDERED: METH29OI TP (19:38)
[2018-11-14] MEDS ORDERED: VANCOMYCIN PER PHARMACY MC PRN (19:45)
[2018-11-14] MEDS ORDERED: MAG HYDROX/AL HYDROX/SIMETH 30 ML ORAL.SUSP PO PRN (20:15)
[2018-11-14] MEDS ORDERED: MAGNESIUM HYDROXIDE 2,400 MG/30 ML ORAL.SUSP. PO PRN (20:15)
[2018-11-14] MEDS ORDERED: VANCOMYCIN 1.75 GM in IV NORMAL SALINE 500ML 500 ML IV ONE (21:00)
[2018-11-14] MEDS: LATANOPROST 0.005% OPHTH SOLUTION 2.5ML BOTTLE. OS SCH (21:00)
[2018-11-14] MEDS: TIMOLOL 0.5% OPHTH SOLUTION 5ML BOTTLE. OU SCH (21:00)
[2018-11-14] MEDS: IV NORMAL SALINE 1,000ML 1,000 ML IV SCH (21:12)
[2018-11-14] MEDS: SUCRALFATE 1 GM TABLET. PO SCH (21:13)
[2018-11-14] MEDS: ACETAMINOPHEN 325 MG TABLET PO PRN (21:13)
[2018-11-14] MEDS: levETIRAcetam 500 MG TABLET PO SCH (21:13)
[2018-11-14] MEDS: chlorproMAZINE HCL 25 MG TABLET PO SCH (21:13)
[2018-11-14] MEDS: OLANZapine 5 MG TABLET PO SCH (21:13)
[2018-11-14] MEDS: traZODone 50 MG TABLET. PO PRN (21:13)
[2018-11-14] MEDS: ATORVASTATIN CALCIUM 20 MG TABLET PO SCH (21:14)
[2018-11-14] MEDS: cloZAPine 25 MG TABLET PO SCH (21:14)
[2018-11-14] MEDS: DOCUSATE SODIUM 100 MG CAPSULE PO SCH (21:14)
--- NOTE | 2018-11-14 21:27 | NUR ---
Pharmacy Vancomycin Dosing Note S:Consulted to monitor and dose vancomycin started 11/14/18. O:KEY SOSA is a 68 year old M with UTI . Height: 5 feet, 8 inches Weight: 73.534413 kg [place] Body Weight: 68.40 Adjusted Body Weight: 70.24 Dosing Weight: Actual Other Antibiotics: LABS: Last BUN: 16 Last Creatinine: 0.9 Creatinine Clearance: 70.25 Last WBC: 6.5 Vancomycin Dosing: Loading Dose: 1000 mg x1 Dosing Weight: Actual Target Trough: 10-20 A: Based on: Actual weight, renal function and indication P: 1. Begin Vancomycin 1000 mg IV q12h 2. Follow up Trough level on 11/16/18 at 0830 3. Pharmacy will continue to monitor, follow and adjust therapy as needed. REHANA HENRIQUEZ, 11/14/18 [id number]
--- NOTE | 2018-11-14 22:34 | PDOC ---
Exam Note: Shahram Note: Please also refer to the separate dictated note~for this date of service dictated separately.~Patient seen individually. Discussed the patient with Nursing staff reviewed the chart.~Reviewed interim history and current functioning. Reviewed vital signs,~Labs/ Radiology~and current medications noted below. Continue current treatment with the changes noted in the dictated addendum note Assessment: Vital Signs: Vital Signs Date Time Temp Pulse Resp B/P (MAP) Pulse Ox O2 Delivery O2 Flow Rate FiO2 11/14/18 20:00 Room Air 11/14/18 19:15 98.1 65 20 100/63 (75) 96 Current Medications: Meds: Current Medications Atorvastatin Calcium (Lipitor) 20 mg QHS PO Last administered on 11/14/18at 21: 14; Start 11/14/18 at 21:00 Chlorpromazine HCl (Thorazine) 25 mg TIDWMEALS PO ; Start 11/15/18 at 08:00 Vitamin D (Vitamin D3) 50,000 unit WEEKLY PO ; Start 11/16/18 at 09:00 Lisinopril (Prinivil) 10 mg DAILY PO ; Start 11/15/18 at 09:00 Lorazepam (Ativan) 0.5 mg PRN Q2HR PRN PO ANXIETY / AGITATION; Start 11/14/18 at 19:15 Multi-Ingredient Ointment (Analgesic [place]) 1 jose elias PRN QID PRN TP MUSCLE PAIN; Start 11/14/18 at 19:15 Metoprolol Succinate (Toprol Xl) 25 mg DAILY PO ; Start 11/15/18 at 09:00 Tamsulosin HCl (Flomax) 0.4 mg DAILY PO ; Start 11/15/18 at 09:00 Acetaminophen (Tylenol) 650 mg PRN Q6HRS PRN PO PAIN / TEMP Last administered on 11/14/18at 21:13; Start 11/14/18 at 20:00 Aspirin (Children'S Aspirin) 81 mg DAILYWBKFT PO ; Start 11/15/18 at 08:00 Chlorpromazine HCl (Thorazine) 100 mg HS PO Last administered on 11/14/18at 21: 13; Start 11/14/18 at 21:00 Clozapine (Clozaril) 75 mg HS PO Last administered on 11/14/18at 21:14; Start at 21:00 Docusate Sodium (Colace) 100 mg BID PO Last administered on 11/14/18at 21:14; Start 11/14/18 at 21:00 Latanoprost (Xalatan) 1 drop QHS OS ; Start 11/14/18 at 21:00 Levetiracetam (Keppra) 500 mg BID PO Last administered on 11/14/18at 21:13; Start 11/14/18 at 21:00 Al Hydroxide/Mg Hydroxide (Mylanta Plus Xs) 15 ml PRN AFTMEALHC PRN PO DYSPEPSIA; Start 11/14/18 at 20:15 Magnesium Hydroxide (Milk Of Magnesia) 2,400 mg PRN QHS PRN PO CONSTIPATION; Start 11/14/18 at 20:15 Olanzapine (ZyPREXA) 5 mg BID PO Last administered on 11/14/18at 21:13; Start at 21:00 Pantoprazole Sodium (Protonix) 40 mg DAILY06 PO ; Start 11/15/18 at 06:00 Non-Formulary Medication (Pantoprazole Sodium (Protonix)) 40 mg DAILY06 PO ; Start 11/15/18 at 06:00; Status UNV Paroxetine HCl (Paxil) 20 mg DAILY PO ; Start 11/15/18 at 09:00 Polyethylene Glycol (miraLAX) 17 gm DAILY PO ; Start 11/15/18 at 09:00 Sennosides (Senna) 8.6 mg DAILY PO ; Start 11/15/18 at 09:00 Sucralfate (Carafate) 1 gm QID PO Last administered on 11/14/18at 21:13; Start 11/14/18 at 21:00 Timolol Maleate (Timoptic 0.5% Oph) 1 drop BID OU ; Start 11/14/18 at 21:00 Trazodone HCl (Desyrel) 50 mg PRN QHS PRN PO INSOMNIA Last administered on 11/14at 21:13; Start 11/14/18 at 20:30 Sodium Chloride 1,000 ml @ 75 mls/hr [id number] IV Last administered on at 21:12; Start 11/14/18 at 19:45 Vancomycin HCl (Vanco Per Pharmacy) 1 each PRN DAILY PRN MC SEE COMMENTS Last administered on 11/14/18at 21:24; Start 11/14/18 at 19:45 Vancomycin HCl 1.75 gm/Sodium Chloride 500 ml @ 250 mls/hr 1X ONCE IV Last administered on 11/14/18at 21:12; Start 11/14/18 at 21:00; Stop 11/14/18 at 22:59 Vancomycin HCl 1 gm/Sodium Chloride 250 ml @ 250 mls/hr Q12H IV ; Start at 09:00 Vancomycin HCl (Vancomycin Trough Level) 1 each 1X ONCE MC ; Start 11/16/18 at 08:30; Stop 11/16/18 at 08:31 Active Scripts Active Reported Protonix (Pantoprazole Sodium) 40 Mg Tablet.dr 40 Mg PO DAILY06 Analgesic [place] (Methyl Salicylate/Menthol) 28 Gm Oint...g. 1 Jose Elias TP PRN QID PRN D3-50 (Cholecalciferol (Vitamin D3)) 50,000 Unit Capsule 50,000 Unit PO WEEKLY Milk Of Magnesia (Magnesium Hydroxide) 2,400 Mg/10 Ml Oral.susp 2,400 Mg PO QHS PRN Maalox Advanced Suspension (Mag Hydrox/Aluminum Hyd/Simeth) 355 Ml Oral.susp 15 Ml PO PRN AFTMEAL PRN Ativan (Lorazepam) 1 Mg Tablet 0.5 Mg PO Q2HR PRN MDD 2mg/24 hours Acetaminophen 500 Mg Tablet 650 Mg PO Q6HRS PRN Clozapine 100 Mg Tablet 75 Mg PO QHS Trazodone Hcl 50 Mg Tablet 50 Mg PO PRN QHS PRN Timoptic (Timolol Maleate) 10 Ml Drops 1 Drop EACHEYE BID Tamsulosin Hcl 0.4 Mg Cap.er.24h 0.4 Mg PO DAILY Carafate (Sucralfate) 1 Gm Tablet 1 Gm PO QID Senna (Sennosides) 8.6 Mg Tablet 8.6 Mg PO DAILY Miralax (Polyethylene Glycol 3350) 17 Gm Powd.pack 1 Packet PO DAILY Paxil (Paroxetine Hcl) 20 Mg Tablet 20 Mg PO DAILY Prilosec Otc (Omeprazole Magnesium) 20 Mg Tablet.dr 40 Mg PO DAILY Olanzapine 5 Mg Tablet 5 Mg PO BID Toprol Xl (Metoprolol Succinate) 25 Mg Tab.er.24h 25 Mg PO DAILY Lisinopril 10 Mg Tablet 10 Mg PO DAILY Keppra (Levetiracetam) 500 Mg Tablet 500 Mg PO BID Latanoprost 2.5 Ml Drops 1 Drop OS QHS Docusate Sodium 100 Mg Capsule 100 Mg PO BID Chlorpromazine Hcl 100 Mg Tablet 100 Mg PO HS Chlorpromazine Hcl 25 Mg Tablet 25 Mg PO TIDWMEALS Lipitor (Atorvastatin Calcium) 20 Mg Tablet 20 Mg PO QHS Aspirin 81 Mg Tab.chew 81 Mg PO DAILY I have reviewed the current psychotropics carefully including drug interactions. Risk benefit ratio favors no change other than as noted in my dictated progress note. Diagnosis: Problems: (1) Anxiety disorder (2) Bipolar affective disorder, mixed (3) Major depressive disorder, recurrent episode (4) Mild cognitive impairment ANASTACIO REED MD Nov 14, 2018 22:34
[2018-11-14 23:05] VITALS: BP 98/65
[2018-11-15] MEDS: PANTOPRAZOLE 40 MG TABLET. PO SCH (05:30)
[2018-11-15 05:33] VITALS: BP 130/81
[2018-11-15] MEDS ORDERED: NON FORMULARY ITEM (Pantoprazole Sodium (Protonix) 40 MG) PO SCH (06:00)
[2018-11-15 06:41] LABS: BASO % 1 % (0-3); EOS # 0.2 x10^3/uL (0.0-0.7); EOS % 4 % (0-3); HEMATOCRIT 32.3 % (39.0-53.0); HEMOGLOBIN 11.6 g/dL (13.0-17.5); LYMPH # 1.4 x10^3/uL (1.0-4.8); LYMPH % 31 % (24-48); MEAN CORPUSCULAR HEMOGLOBIN 34 pg (25-35); MEAN CORPUSCULAR HGB CONC 36 g/dL (31-37); MEAN CORPUSCULAR VOLUME 95 fL (79-100); MONO # 0.4 x10^3/uL (0.0-1.1); MONO % 8 % (0-9); NEUT # 2.6 x10^3uL (1.8-7.7); NEUT % 57 % (31-73); PLATELET COUNT 192 x10^3/uL (140-400); RED BLOOD COUNT 3.39 x10^6/uL (4.30-5.70); WHITE BLOOD COUNT 4.5 x10^3/uL (4.0-11.0)
[2018-11-15 06:56] LABS: ALBUMIN 2.8 g/dL (3.4-5.0); ALBUMIN/GLOBULIN RATIO 0.9 (1.0-1.7); CALCIUM 8.6 mg/dL (8.5-10.1); CREATININE 0.8 mg/dL (0.7-1.3); GFR 96.1; POTASSIUM 3.6 mmol/L (3.5-5.1); TOTAL BILIRUBIN 0.6 mg/dL (0.2-1.0); TOTAL PROTEIN 5.8 g/dL (6.4-8.2)
[2018-11-15] MEDS: DOCUSATE SODIUM 100 MG CAPSULE PO SCH ×2 (07:38→20:39)
[2018-11-15] MEDS: chlorproMAZINE HCL 25 MG TABLET PO SCH ×4 (07:38→20:40)
[2018-11-15] MEDS: SUCRALFATE 1 GM TABLET. PO SCH ×4 (07:38→20:40)
[2018-11-15] MEDS: OLANZapine 5 MG TABLET PO SCH ×2 (07:39→20:39)
[2018-11-15] MEDS: METOPROLOL SUCC 24HR ER 25 MG TAB.ER.24H. PO SCH (07:39)
[2018-11-15] MEDS: SENNOSIDES 8.6 MG TABLET PO SCH (07:39)
[2018-11-15] MEDS: PARoxetine 20 MG TABLET PO SCH (07:39)
[2018-11-15] MEDS: LISINOPRIL 10 MG TABLET PO SCH (07:40)
[2018-11-15] MEDS: levETIRAcetam 500 MG TABLET PO SCH ×2 (07:40→20:40)
[2018-11-15] MEDS: ASPIRIN 81 MG TAB.CHEW PO SCH (07:40)
[2018-11-15] MEDS: TAMSULOSIN 0.4 MG CAP.ER.24H. PO SCH (07:40)
[2018-11-15] MEDS: POLYETHYLENE GLYCOL 3350 17 GM PACKET. PO SCH (07:41)
[2018-11-15] MEDS: VANCOMYCIN 1 GM in IV NORMAL SALINE 250ML 250 ML IV SCH ×2 (07:41→20:41)
[2018-11-15] MEDS: IV NORMAL SALINE 1,000ML 1,000 ML IV SCH ×2 (07:43→20:43)
[2018-11-15] MEDS: TIMOLOL 0.5% OPHTH SOLUTION 5ML BOTTLE. OU SCH ×2 (09:53→20:40)
[2018-11-15 10:39] VITALS: BP 100/63
--- NOTE | 2018-11-15 14:18 | HP ---
ADMIT DATE: 11/14/2018 HISTORY OF PRESENT ILLNESS: The patient is a 68-year-old male patient whom I have seen yesterday at the [facility]. His urine culture has grown coagulase-negative staph that is sensitive to multiple antibiotics. Unfortunately, the patient is allergic to almost antibiotics including amoxicillin, cefdinir, cephalexin, ciprofloxacin and therefore, the patient was transferred to [address] [place] [address] to be treated with IV vancomycin as the only viable option. The patient himself did not offer any complaint. PAST MEDICAL HISTORY: Significant for coronary artery disease, status post coronary artery bypass graft surgery in 2007. He has chronic constipation, gastroesophageal reflux disease, hypertension, hyperlipidemia, irritable bowel syndrome, obstructive sleep apnea, on CPAP, chronic back pain and neck pain. PAST SURGICAL HISTORY: Significant for coronary artery bypass graft surgery. ALLERGIES: He is allergic to approximately 50 different medications that he notes. HE IS ALLERGIC TO INCLUDING TEGRETOL, LITHIUM, DEPAKOTE AMONG MANY OTHER NOTED IN HIS CHART. FAMILY HISTORY: Noncontributory. SOCIAL HISTORY: The patient is currently a resident at [facility]. He apparently was referred from [facility]. He has been hospitalized for the several days prior to arrival to the [facility]. He was also hospitalized at [facility] before with suicidal ideation. The patient has multiple somatic complaints and fixated on not being able to take care of himself since he lives by himself at home. He does have a past history significant for bipolar disorder and states he has had ECT in the past, was treated with Dr. Gordon for a long period of time. He is depressed and having worsening mood swings and has been medically stabilized and was referred for inpatient psychiatric stabilization. He apparently has 2 adult sons and he is from his for quite some time, but not . He apparently used to drink alcohol heavily. MEDICATIONS: He is currently on following medications: He is on tamsulosin 0.4 mg at bedtime, atorvastatin calcium 20 mg at bedtime, metoprolol succinate 25 mg once a day, lisinopril 10 mg once a day, aspirin 81 mg once a day, analgesic balm 1 application 4 times a day, acetaminophen 650 mg every 6 hours, Keppra 500 mg twice a day, paroxetine 20 mg once a day, trazodone 50 mg once a day, chlorpromazine 25 mg 3 times a day with meals, chlorpromazine 100 mg at bedtime, clozapine 75 mg at bedtime, olanzapine 5 mg p.o. b.i.d., lorazepam 0.5 mg every 2 hours, timolol maleate 1 drop to both eyes twice a day, latanoprost 1 drop to both eyes at bedtime. He is on Maalox 15 mL after meals, milk of magnesia 30 mL p.o. daily p.r.n. for constipation, MiraLax 17 grams daily p.r.n. for constipation, Senna 1 tablet daily, sucralfate 1 gram 4 times a day, omeprazole 40 mg once a day, Protonix 40 mg once a day, cholecalciferol 50,000 units once a week. PHYSICAL EXAMINATION: GENERAL: On arrival when I saw him, he looked well and was clearly in no apparent respiratory distress, slightly pale, no jaundice, cyanosis, or thyromegaly. No jugular venous distention. No limb edema. VITAL SIGNS: His heart rate was 65, blood pressure 100/63, temperature was 98, respiratory rate was 20, and oxygen saturation was 96% on room air. HEAD, EYES, EARS, NOSE, AND THROAT: Showed normocephalic, atraumatic. NECK: Supple. HEART: Showed normal first and second heart sounds with no gallop, rub, or murmur. CHEST: Clear to auscultation. No crepitation or rhonchi. ABDOMEN: Distended, soft, nontender. No guarding or rigidity. No organomegaly. All hernial orifices intact. Bowel sounds normal. NEUROLOGIC: He is awake, alert, responding appropriately. All cranial nerves intact. He moves extremities without difficulty. LABORATORY DATA: His most recent lab work showed a white cell count 6500, hemoglobin 12.9, hematocrit 36.6, MCV 96, and platelet count 238,000. His chemistry showed a serum sodium 143, potassium 4, chloride 103, bicarbonate 31, anion gap of 9, BUN 16, creatinine 0.9, estimated GFR was 84 mL per minute, glucose 104, calcium 9.1. Total bilirubin, AST, ALT, alkaline phosphatase were normal. Total protein was 6.6, albumin was 3.3. His free T4 is normal as well as total T4 and total T3. His TSH was 1.039. ASSESSMENT AND PLAN: The patient who transferred to [address] [place] [address] to continue the IV vancomycin with the dose adjusted by the pharmacist. Continue with all other medications. I will follow him closely. STEFAN PIERCE MD DR: JORGE LUIS/nicole JOB#: [id number] / [id number]
[2018-11-15 15:54] VITALS: BP 95/56
[2018-11-15 19:57] VITALS: BP 93/53
[2018-11-15] MEDS: LACTOBACILLUS RHAMNOSUS GG 1 CAPSULE. PO SCH (20:39)
[2018-11-15] MEDS: ACETAMINOPHEN 325 MG TABLET PO PRN (20:39)
[2018-11-15] MEDS: traZODone 50 MG TABLET. PO PRN (20:40)
[2018-11-15] MEDS: ATORVASTATIN CALCIUM 20 MG TABLET PO SCH (20:40)
[2018-11-15] MEDS: LATANOPROST 0.005% OPHTH SOLUTION 2.5ML BOTTLE. OS SCH (20:40)
[2018-11-15] MEDS: cloZAPine 25 MG TABLET PO SCH (20:42)
--- NOTE | 2018-11-15 21:18 | PN ---
DATE: 11/15/2018 SUBJECTIVE: The patient is resting slightly propped up in bed, in no apparent respiratory distress. He is awake, alert. On questioning him, he denied any complaint except some back pain and also pain in his left heel joint. OBJECTIVE: GENERAL: On examining him, he looked pale, no jaundice, cyanosis, lymphadenopathy or thyromegaly. No jugular venous distension. No limb edema. VITAL SIGNS: Her heart rate was 71, blood pressure 100/63, temperature was 98.3, respiratory rate 18, and oxygen saturation was 95%. The rest of clinical examination is stable and unremarkable. His intake was 1100, output was 1550. LABORATORY DATA: Showed a white cell count of 4500, hemoglobin 11.6, hematocrit 32.3, MCV 95, and platelet count of 192,000. His chemistry showed a serum sodium of 145, potassium 3.6, chloride 107, bicarbonate 31, anion gap of 7, BUN 10, creatinine 0.8, estimated GFR was 96 mL per minute. Her glucose was 98, calcium was 8.6. Total bilirubin, AST, ALT, alkaline phosphatase were normal. Total protein was 5.8, albumin 2.8. ASSESSMENT AND PLAN: 1. Urinary tract infection with growth of coagulase-negative Staph aureus, susceptible to multiple antibiotics. The patient is allergic to all of them except vancomycin. We will continue with IV vancomycin. Continue with all his other medications. STEFAN PIERCE MD DR: JORGE LUIS/nicole JOB#: [id number] / [id number]
--- NOTE | 2018-11-15 22:08 | PDOC ---
Exam Note: Shahram Note: Please also refer to the separate dictated note~for this date of service dictated separately.~Patient seen individually. Discussed the patient with Nursing staff reviewed the chart.~Reviewed interim history and current functioning. Reviewed vital signs,~Labs/ Radiology~and current medications noted below. Continue current treatment with the changes noted in the dictated addendum note Assessment: Vital Signs: Vital Signs Date Time Temp Pulse Resp B/P (MAP) Pulse Ox O2 Delivery O2 Flow Rate FiO2 11/15/18 19:57 98.5 65 20 93/53 (66) 97 Room Air I&O Intake and Output 11/15/18 07:00 Intake Total 1092 ml Output Total 1550 ml Balance -458 ml Intake Oral 100 ml IV Total 992 ml Output Urine Total 1550 ml # Voids 1 Labs: Laboratory Tests Test 11/15/18 05:57 White Blood Count 4.5 x10^3/uL (4.0-11.0) Red Blood Count 3.39 x10^6/uL (4.30-5.70) L Hemoglobin 11.6 g/dL (13.0-17.5) L Hematocrit 32.3 % (39.0-53.0) L Mean Corpuscular Volume 95 fL (79-100) Mean Corpuscular Hemoglobin 34 pg (25-35) Mean Corpuscular Hemoglobin Concent 36 g/dL (31-37) Red Cell Distribution Width 13.0 % (11.5-14.5) Platelet Count 192 x10^3/uL (140-400) Neutrophils (%) (Auto) 57 % (31-73) Lymphocytes (%) (Auto) 31 % (24-48) Monocytes (%) (Auto) 8 % (0-9) Eosinophils (%) (Auto) 4 % (0-3) H Basophils (%) (Auto) 1 % (0-3) Neutrophils # (Auto) 2.6 x10^3uL (1.8-7.7) Lymphocytes # (Auto) 1.4 x10^3/uL (1.0-4.8) Monocytes # (Auto) 0.4 x10^3/uL (0.0-1.1) Eosinophils # (Auto) 0.2 x10^3/uL (0.0-0.7) Basophils # (Auto) 0.0 x10^3/uL (0.0-0.2) Sodium Level 145 mmol/L (136-145) Potassium Level 3.6 mmol/L (3.5-5.1) Chloride Level 107 mmol/L (98-107) Carbon Dioxide Level 31 mmol/L (21-32) Anion Gap 7 (6-14) Blood Urea Nitrogen 10 mg/dL (8-26) Creatinine 0.8 mg/dL (0.7-1.3) Estimated GFR (Cockcroft-Gault) 96.1 BUN/Creatinine Ratio 13 (6-20) Glucose Level 98 mg/dL (70-99) Calcium Level 8.6 mg/dL (8.5-10.1) Total Bilirubin 0.6 mg/dL (0.2-1.0) Aspartate Amino Transferase (AST) 16 U/L (15-37) Alanine Aminotransferase (ALT) 20 U/L (16-63) Alkaline Phosphatase 69 U/L (46-116) Total Protein 5.8 g/dL (6.4-8.2) L Albumin 2.8 g/dL (3.4-5.0) L Albumin/Globulin Ratio 0.9 (1.0-1.7) L Current Medications: Meds: Current Medications Atorvastatin Calcium (Lipitor) 20 mg QHS PO Last administered on 11/15/18at 20: 40; Start 11/14/18 at 21:00 Chlorpromazine HCl (Thorazine) 25 mg TIDWMEALS PO Last administered on at 16:36; Start 11/15/18 at 08:00 Vitamin D (Vitamin D3) 50,000 unit WEEKLY PO ; Start 11/16/18 at 09:00 Lisinopril (Prinivil) 10 mg DAILY PO Last administered on 11/15/18at 07:40; Start 11/15/18 at 09:00 Lorazepam (Ativan) 0.5 mg PRN Q2HR PRN PO ANXIETY / AGITATION; Start 11/14/18 at 19:15 Multi-Ingredient Ointment (Analgesic [address]) 1 jose elias PRN QID PRN TP MUSCLE PAIN; Start 11/14/18 at 19:15 Metoprolol Succinate (Toprol Xl) 25 mg DAILY PO Last administered on 11/15/18at 07:39; Start 11/15/18 at 09:00 Tamsulosin HCl (Flomax) 0.4 mg DAILY PO Last administered on 11/15/18 07:40; Start 11/15/18 at 09:00 Acetaminophen (Tylenol) 650 mg PRN Q6HRS PRN PO PAIN / TEMP Last administered on 11/15/18 20:39; Start 11/14/18 at 20:00 Aspirin (Children'S Aspirin) 81 mg DAILYWBKFT PO Last administered on 07:40; Start 11/15/18 at 08:00 Chlorpromazine HCl (Thorazine) 100 mg HS PO Last administered on 11/15/18 20: 40; Start 11/14/18 at 21:00 Clozapine (Clozaril) 75 mg HS PO Last administered on 11/15/18 20:42; Start at 21:00 Docusate Sodium (Colace) 100 mg BID PO Last administered on 11/15/18 20:39; Start 11/14/18 at 21:00 Latanoprost (Xalatan) 1 drop QHS OS Last administered on 11/15/18 20:40; Start 11/14/18 at 21:00 Levetiracetam (Keppra) 500 mg BID PO Last administered on 11/15/18 20:40; Start 11/14/18 at 21:00 Al Hydroxide/Mg Hydroxide (Mylanta Plus Xs) 15 ml PRN AFTMEALHC PRN PO DYSPEPSIA; Start 11/14/18 at 20:15 Magnesium Hydroxide (Milk Of Magnesia) 2,400 mg PRN QHS PRN PO CONSTIPATION; Start 11/14/18 at 20:15 Olanzapine (ZyPREXA) 5 mg BID PO Last administered on 11/15/18 20:39; Start at 21:00 Pantoprazole Sodium (Protonix) 40 mg DAILY06 PO Last administered on 11/15/18 05:30; Start 11/15/18 at 06:00 Non-Formulary Medication (Pantoprazole Sodium (Protonix)) 40 mg DAILY06 PO ; Start 11/15/18 at 06:00; Status UNV Paroxetine HCl (Paxil) 20 mg DAILY PO Last administered on 11/15/18 07:39; Start 11/15/18 at 09:00 Polyethylene Glycol (miraLAX) 17 gm DAILY PO Last administered on 11/15/18 07: 41; Start 11/15/18 at 09:00 Sennosides (Senna) 8.6 mg DAILY PO Last administered on 11/15/18 07:39; Start 11/15/18 at 09:00 Sucralfate (Carafate) 1 gm QID PO Last administered on 11/15/18at 07:38; Start 11/14/18 at 21:00; Stop 11/15/18 at 08:50; Status DC Timolol Maleate (Timoptic 0.5% Oph) 1 drop BID OU Last administered on 20:40; Start 11/14/18 at 21:00 Trazodone HCl (Desyrel) 50 mg PRN QHS PRN PO INSOMNIA Last administered on 11/15 20:40; Start 11/14/18 at 20:30 Sodium Chloride 1,000 ml @ 75 mls/hr [id number] IV Last administered on at 20:43; Start 11/14/18 at 19:45 Vancomycin HCl (Vanco Per Pharmacy) 1 each PRN DAILY PRN MC SEE COMMENTS Last administered on 11/14/18 21:24; Start 11/14/18 at 19:45 Vancomycin HCl 1.75 gm/Sodium Chloride 500 ml @ 250 mls/hr 1X ONCE IV Last administered on 11/14/18at 21:12; Start 11/14/18 at 21:00; Stop 11/14/18 at 22:59 ; Status DC Vancomycin HCl 1 gm/Sodium Chloride 250 ml @ 250 mls/hr Q12H IV Last administered on 11/15/18 20:41; Start 11/15/18 at 09:00 Vancomycin HCl (Vancomycin Trough Level) 1 each 1X ONCE MC ; Start 11/16/18 at 08:30; Stop 11/16/18 at 08:31 Sucralfate (Carafate) 1 gm QIDACHS PO Last administered on 11/15/18at 20:40; Start 11/15/18 at 11:30 Lactobacillus Rhamnosus (Culturelle) 1 cap BID PO Last administered on at 20:39; Start 11/15/18 at 21:00 Active Scripts Active Reported Protonix (Pantoprazole Sodium) 40 Mg Tablet.dr 40 Mg PO DAILY06 Analgesic [address] (Methyl Salicylate/Menthol) 28 Gm Oint...g. 1 Jose Elias TP PRN QID PRN D3-50 (Cholecalciferol (Vitamin D3)) 50,000 Unit Capsule 50,000 Unit PO WEEKLY Milk Of Magnesia (Magnesium Hydroxide) 2,400 Mg/10 Ml Oral.susp 2,400 Mg PO QHS PRN Maalox Advanced Suspension (Mag Hydrox/Aluminum Hyd/Simeth) 355 Ml Oral.susp 15 Ml PO PRN AFTMEAL PRN Ativan (Lorazepam) 1 Mg Tablet 0.5 Mg PO Q2HR PRN MDD 2mg/24 hours Acetaminophen 500 Mg Tablet 650 Mg PO Q6HRS PRN Clozapine 100 Mg Tablet 75 Mg PO QHS Trazodone Hcl 50 Mg Tablet 50 Mg PO PRN QHS PRN Timoptic (Timolol Maleate) 10 Ml Drops 1 Drop EACHEYE BID Tamsulosin Hcl 0.4 Mg Cap.er.24h 0.4 Mg PO DAILY Carafate (Sucralfate) 1 Gm Tablet 1 Gm PO QID Senna (Sennosides) 8.6 Mg Tablet 8.6 Mg PO DAILY Miralax (Polyethylene Glycol 3350) 17 Gm Powd.pack 1 Packet PO DAILY Paxil (Paroxetine Hcl) 20 Mg Tablet 20 Mg PO DAILY Prilosec Otc (Omeprazole Magnesium) 20 Mg Tablet.dr 40 Mg PO DAILY Olanzapine 5 Mg Tablet 5 Mg PO BID Toprol Xl (Metoprolol Succinate) 25 Mg Tab.er.24h 25 Mg PO DAILY Lisinopril 10 Mg Tablet 10 Mg PO DAILY Keppra (Levetiracetam) 500 Mg Tablet 500 Mg PO BID Latanoprost 2.5 Ml Drops 1 Drop OS QHS Docusate Sodium 100 Mg Capsule 100 Mg PO BID Chlorpromazine Hcl 100 Mg Tablet 100 Mg PO HS Chlorpromazine Hcl 25 Mg Tablet 25 Mg PO TIDWMEALS Lipitor (Atorvastatin Calcium) 20 Mg Tablet 20 Mg PO QHS Aspirin 81 Mg Tab.chew 81 Mg PO DAILY I have reviewed the current psychotropics carefully including drug interactions. Risk benefit ratio favors no change other than as noted in my dictated progress note. Diagnosis: Problems: (1) Anxiety disorder (2) Bipolar affective disorder, mixed (3) Major depressive disorder, recurrent episode (4) Mild cognitive impairment ANASTACIO REED MD Nov 15, 2018 22:07
[2018-11-15 22:29] VITALS: BP 100/62
--- NOTE | 2018-11-15 22:40 | PN ---
DATE: 11/15/2018 PSYCHIATRIC PROGRESS NOTE This note covers elements not covered in my initial note. I have been asked to consult on the patient who was transferred to room 113, 1 [facility] for treatment of his UTI. [facility] was on the [facility], being stabilized for his Bipolar disorder prior to that. Per nursing report, he is doing better from a psychiatric standpoint. He has multiple allergies and was started on Clozaril for his bipolar disorder. REVIEW OF SYSTEMS: Admits to some tiredness, but states he feels better. No CV, , pulmonary, eye system symptoms on review. MENTAL STATUS EXAM: The patient readily recognized me. Speech is coherent, has some latency. Abstraction fair, computation impaired, language function intact, attention span short. Mood and affect remain somewhat anxious. LABORATORY DATA: Reviewed. IMPRESSION: Bipolar 1 disorder, mixed; urinary tract infection. Rest unchanged. PLAN: No change from a psychiatric standpoint, continue Clozaril at current dosage. I did meet with the patient in the evening of 11/15/2018 and would be happy to follow him from a psychiatric standpoint while he is hospitalized on the medical/surgical floor. MAN Villa REED MD DR: CRYSTAL/nicole JOB#: [id number] / [id number]
[2018-11-16 05:13] VITALS: BP 134/84
[2018-11-16] MEDS: PANTOPRAZOLE 40 MG TABLET. PO SCH (05:35)
[2018-11-16] MEDS: SUCRALFATE 1 GM TABLET. PO SCH ×4 (07:50→19:38)
[2018-11-16] MEDS: DOCUSATE SODIUM 100 MG CAPSULE PO SCH ×2 (07:51→19:38)
[2018-11-16] MEDS: LISINOPRIL 10 MG TABLET PO SCH (07:51)
[2018-11-16] MEDS: levETIRAcetam 500 MG TABLET PO SCH ×2 (07:51→19:38)
[2018-11-16] MEDS: SENNOSIDES 8.6 MG TABLET PO SCH (07:51)
[2018-11-16] MEDS: LACTOBACILLUS RHAMNOSUS GG 1 CAPSULE. PO SCH ×2 (07:51→19:37)
[2018-11-16] MEDS: OLANZapine 5 MG TABLET PO SCH ×2 (07:51→19:38)
[2018-11-16] MEDS: TIMOLOL 0.5% OPHTH SOLUTION 5ML BOTTLE. OU SCH ×2 (07:51→19:37)
[2018-11-16] MEDS: chlorproMAZINE HCL 25 MG TABLET PO SCH ×4 (07:51→19:38)
[2018-11-16] MEDS: PARoxetine 20 MG TABLET PO SCH (07:51)
[2018-11-16] MEDS: ASPIRIN 81 MG TAB.CHEW PO SCH (07:51)
[2018-11-16] MEDS: METOPROLOL SUCC 24HR ER 25 MG TAB.ER.24H. PO SCH (07:52)
[2018-11-16] MEDS: TAMSULOSIN 0.4 MG CAP.ER.24H. PO SCH (07:52)
[2018-11-16] MEDS: POLYETHYLENE GLYCOL 3350 17 GM PACKET. PO SCH (07:55)
[2018-11-16 08:57] LABS: VANC TR 12.9 mcg/mL (10.0-20.0)
[2018-11-16] MEDS ORDERED: CHOLECALCIFEROL (VITAMIN D3) 50,000 UNIT CAPSULE PO SCH (09:00)
[2018-11-16] MEDS: VANCOMYCIN 1 GM in IV NORMAL SALINE 250ML 250 ML IV SCH (09:45)
[2018-11-16 11:03] VITALS: BP 102/64
[2018-11-16] MEDS: IV NORMAL SALINE 1,000ML 1,000 ML IV SCH (11:45)
[2018-11-16] MEDS ORDERED: LEVO750T31 PO (15:57)
[2018-11-16 16:11] VITALS: BP 102/62
[2018-11-16] MEDS ORDERED: levoFLOXacin 750 MG TABLET PO SCH (18:00)
--- NOTE | 2018-11-16 18:06 | DS ---
DATE OF DISCHARGE: 11/16/2018 HOSPITAL COURSE: The patient is a 68-year-old male patient who was actually transferred from [facility] as he has urine culture that grew coagulase-negative Staph aureus susceptible to multiple antibiotics. Unfortunately, he was allergic to all of them except vancomycin. We did further investigation into his allergies and transpired that Levaquin caused him bad dreams and as the bacteria is susceptible, a decision was made to discontinue vancomycin and start him on Levaquin and transfer him back to [facility] to continue with inpatient psychiatric stabilization. PHYSICAL EXAMINATION: GENERAL: When I saw him this afternoon, he looked well and was clearly in no apparent respiratory distress. No pallor, jaundice, cyanosis, or thyromegaly. No jugular venous distension. No limb edema. VITAL SIGNS: His heart rate was 60, blood pressure was 102/62, temperature was 98.4, respiratory rate 20, and oxygen saturation was 96% on room air. HEAD, EYES, EARS, NOSE AND THROAT: Showed normocephalic, atraumatic. NECK: Supple. HEART: Showed normal first and second sounds. No gallop, rub or murmur. CHEST: Clear to auscultation. No crepitation or rhonchi. ABDOMEN: Distended, soft, nontender. No guarding or rigidity. No organomegaly. Hernial orifice intact. Bowel sounds normal. NEUROLOGICAL: He was awake, alert, responding appropriately. All cranial nerves intact. He moves extremities without difficulty. He does have an indwelling Key catheter as he has urine retention. LABORATORY DATA: Showed his white cell count was 4500, hemoglobin 11.6, hematocrit 32, MCV 95, and platelet count of 192,000. His chemistry showed a serum sodium of 145, potassium 3.6, chloride 107, bicarbonate 31, anion gap of 7, BUN 10, creatinine 0.8, estimated GFR was 96 mL per minute, his glucose was 98, calcium was 8.6. Total bilirubin, AST, ALT, alkaline phosphatase were normal. Total protein was 5.8, albumin 2.8. His vancomycin trough level was within therapeutic range. His nasal screen for MRSA by PCR was negative. As his coagulase-negative Staph is susceptible to Levaquin and he has no major side effect apart from bad dreams, my plan is to discontinue vancomycin. We will start him on Levaquin. The patient will be discharged back to [facility] after giving him oral Levaquin here and observe him for at least an hour or 2 for taking out his IV line to make absolutely sure that he does not have any allergic reaction and if he remains stable, the patient will be transferred upstairs to continue on all his other medication together with Levaquin. FINAL DISCHARGE DIAGNOSES: Coagulase-negative Staph aureus, urinary tract infection. Other medical problems include coronary artery disease status post coronary artery bypass graft surgery, chronic constipation, gastroesophageal reflux disease, hypertension, hyperlipidemia, irritable bowel syndrome, obstructive sleep apnea on CPAP, chronic back pain and neck pain, bladder outlet obstruction with urinary retention. I would also increase his Flomax to 0.8 mg and we will attempt obviously to remove his catheter later on. STEFAN PIERCE MD DR: JORGE LUIS/nicole JOB#: [id number] / [id number]
[2018-11-16 19:32] VITALS: BP 102/65
[2018-11-16] MEDS: LATANOPROST 0.005% OPHTH SOLUTION 2.5ML BOTTLE. OS SCH (19:37)
[2018-11-16] MEDS: cloZAPine 25 MG TABLET PO SCH (19:37)
[2018-11-16] MEDS: traZODone 50 MG TABLET. PO PRN (19:38)
[2018-11-16] MEDS: ATORVASTATIN CALCIUM 20 MG TABLET PO SCH (19:38)
[2018-11-16] MEDS: ACETAMINOPHEN 325 MG TABLET PO PRN (19:38)
--- NOTE | 2018-11-16 20:03 | NUR ---
Pt monitored x1 hr after admin of PO levaquin for any s/sx of reaction. None noted. Notified Nolan HOLLINGSWORTH on [facility] of patient status. Will transfer upstairs. Report given by DARRICK Oshea.
--- NOTE | 2018-11-16 20:06 | NUR ---
Discharge Note: [facility] [address] Discharge instructions and discharge home medications reviewed with Other facility and a copy given. All questions have been answered and understanding verbalized. The following instructions and handouts were given: DC packet given to Nolan HOLLINGSWORTH. Discontinued lines and drains: Peripheral IV DC'd, catheter tip intact. Patient discharged to [facility] with via Wheelchair accompanied by [employer].
[2018-11-16] MEDS ORDERED: LACT1CAP21 PO (20:43)
== END 2018-11-16 20:03 | DRG 690 ==
LOC: 1 SOUTH 17:29
PROVIDERS: ADMIT Internal Medicine; ATTEND Internal Medicine
PROC: 5A09357 Assistance with Respiratory Ventilation, Less than 24 Consecutive Hours, Continuous Positive Airway Pressure (ICD-10-PCS; principal; 2018-11-14)
PROC: 5A09357 Assistance with Respiratory Ventilation, Less than 24 Consecutive Hours, Continuous Positive Airway Pressure (ICD-10-PCS; 2018-11-15)
DX: N39.0 Urinary tract infection, site not specified (principal); F31.60 Bipolar disorder, current episode mixed, unspecified; G31.84 Mild cognitive impairment of uncertain or unknown etiology; I25.10 Atherosclerotic heart disease of native coronary artery without angina pectoris; K59.09 Other constipation; G89.29 Other chronic pain; G47.33 Obstructive sleep apnea (adult) (pediatric); K21.9 Gastro-esophageal reflux disease without esophagitis; I10 Essential (primary) hypertension; E78.5 Hyperlipidemia, unspecified; K58.9 Irritable bowel syndrome, unspecified; F41.9 Anxiety disorder, unspecified; Z95.1 Presence of aortocoronary bypass graft; Z88.8 Allergy status to other drugs, medicaments and biological substances; B95.61 Methicillin susceptible Staphylococcus aureus infection as the cause of diseases classified elsewhere
CPT/HCPCS: 36415; 80053; 80202; 85025; 87641; J3370; J7040; J7050; Q0161; 97110; 97530; J7030

== ENCOUNTER 2018-11-16 18:47 | Inpatient (IN) | payer MEDICARE ==
[~2018-11-16] VITALS: Ht 162.6 cm; Wt 71.2 kg
[~2018-11-16 18:47] MED LIST changes: +ACET500T68 PO; +CHOL500021 PO; +CLOZ100T7 PO; +LEVO750T31 PO; +LORA-254 PO; +MAG355OR11 PO; +MAGN2400 PO; +METH29OI TP; +PANT40TA3 PO; +TAMS0.4C97 PO
[2018-11-16] MEDS ORDERED: ACETAMINOPHEN 325 MG TABLET PO PRN ×2 (20:15→21:15)
[2018-11-16] MEDS ORDERED: LACT1CAP21 PO (20:43)
[2018-11-16] MEDS ORDERED: traZODone 50 MG TABLET. PO PRN (21:00)
[2018-11-16] MEDS: cloZAPine 25 MG TABLET PO SCH (21:00)
[2018-11-16] MEDS: ATORVASTATIN CALCIUM 20 MG TABLET PO SCH (21:00)
[2018-11-16] MEDS ORDERED: CLOZAPINE PO SCH (21:00)
[2018-11-16] MEDS ORDERED: MAG HYDROX/AL HYDROX/SIMETH 30 ML ORAL.SUSP PO PRN (21:15)
[2018-11-16] MEDS ORDERED: MAGNESIUM HYDROXIDE 2,400 MG/30 ML ORAL.SUSP. PO PRN (21:15)
[2018-11-16] MEDS: DOCUSATE SODIUM 100 MG CAPSULE PO SCH (21:15)
[2018-11-16] MEDS: TIMOLOL 0.5% OPHTH SOLUTION 5ML BOTTLE. OU SCH (21:30)
[2018-11-16] MEDS: SUCRALFATE 1 GM TABLET. PO SCH (21:30)
[2018-11-16] MEDS: LACTOBACILLUS RHAMNOSUS GG 1 CAPSULE. PO SCH (21:30)
[2018-11-16] MEDS: levETIRAcetam 500 MG TABLET PO SCH (21:30)
[2018-11-16] MEDS: chlorproMAZINE HCL 25 MG TABLET PO SCH (21:30)
[2018-11-16] MEDS: OLANZapine 5 MG TABLET PO SCH (21:30)
[2018-11-16] MEDS: LATANOPROST 0.005% OPHTH SOLUTION 2.5ML BOTTLE. OS SCH (21:30)
--- NOTE | 2018-11-16 22:11 | PDOC ---
Exam Note: Shahram Note: Please also refer to the separate dictated note~for this date of service dictated separately. Discussed the patient with Nursing staff reviewed the chart.~Reviewed interim history and current functioning. Reviewed vital signs,~ Labs/ Radiology~and current medications noted below. Continue current treatment with the changes noted in the dictated addendum note Current Medications: Meds: Current Medications Acetaminophen (Tylenol) 650 mg PRN Q6HRS PRN PO PAIN / TEMP; Start 11/16/18 at 20:15 Non-Formulary Medication (Clozapine ) 75 mg QHS PO ; Start 11/16/18 at 21:00; Stop 11/16/18 at 21:01; Status DC Paroxetine HCl (Paxil) 20 mg DAILY PO ; Start 11/17/18 at 09:00 Trazodone HCl (Desyrel) 50 mg PRN QHS PRN PO INSOMNIA; Start 11/16/18 at 21:00 Atorvastatin Calcium (Lipitor) 20 mg QHS PO ; Start 11/16/18 at 21:00 Vitamin D (Vitamin D3) 50,000 unit WEEKLY PO ; Start 11/23/18 at 09:00 Lisinopril (Prinivil) 10 mg DAILY PO ; Start 11/17/18 at 09:00 Metoprolol Succinate (Toprol Xl) 25 mg DAILY PO ; Start 11/17/18 at 09:00 Tamsulosin HCl (Flomax) 0.4 mg DAILY PO ; Start 11/17/18 at 09:00 Acetaminophen (Tylenol) 650 mg PRN Q6HRS PRN PO PAIN / TEMP; Start 11/16/18 at 21:15; Status Cancel Aspirin (Children'S Aspirin) 81 mg DAILYWBKFT PO ; Start 11/17/18 at 08:00 Docusate Sodium (Colace) 100 mg BID PO ; Start 11/16/18 at 21:15 Lactobacillus Rhamnosus (Culturelle) 1 cap BID PO ; Start 11/16/18 at 21:30 Latanoprost (Xalatan) 1 drop QHS OS ; Start 11/16/18 at 21:30 Levetiracetam (Keppra) 500 mg BID PO ; Start 11/16/18 at 21:30 Levofloxacin (Levaquin) 750 mg DAILY06 PO ; Start 11/17/18 at 06:00 Al Hydroxide/Mg Hydroxide (Mylanta Plus Xs) 15 ml PRN AFTMEALHC PRN PO DYSPEPSIA; Start 11/16/18 at 21:15 Magnesium Hydroxide (Milk Of Magnesia) 2,400 mg PRN QHS PRN PO CONSTIPATION; Start 11/16/18 at 21:15 Pantoprazole Sodium (Protonix) 40 mg DAILY06 PO ; Start 11/17/18 at 06:00 Polyethylene Glycol (miraLAX) 17 gm DAILY PO ; Start 11/17/18 at 09:00 Sennosides (Senna) 8.6 mg DAILY PO ; Start 11/17/18 at 09:00 Sucralfate (Carafate) 1 gm QIDACHS PO ; Start 11/16/18 at 21:30 Timolol Maleate (Timoptic 0.5% Ophth) 1 drop BID OU ; Start 11/16/18 at 21:30 Chlorpromazine HCl (Thorazine) 25 mg TIDWMEALS PO ; Start 11/17/18 at 08:00 Chlorpromazine HCl (Thorazine) 100 mg HS PO ; Start 11/16/18 at 21:30 Olanzapine (ZyPREXA) 5 mg BID PO ; Start 11/16/18 at 21:30 Clozapine (Clozaril) 75 mg HS PO ; Start 11/16/18 at 21:00 Active Scripts Active Levaquin (Levofloxacin) 750 Mg Tablet 1 Tab PO DAILY 7 Days Reported Culturelle (Lactobacillus Rhamnosus Gg) 1 Each Capsule 1 Each PO BID Protonix (Pantoprazole Sodium) 40 Mg Tablet.dr 40 Mg PO DAILY06 Analgesic [place] (Methyl Salicylate/Menthol) 28 Gm Oint...g. 1 Jose Elias TP PRN QID PRN D3-50 (Cholecalciferol (Vitamin D3)) 50,000 Unit Capsule 50,000 Unit PO WEEKLY Milk Of Magnesia (Magnesium Hydroxide) 2,400 Mg/10 Ml Oral.susp 2,400 Mg PO QHS PRN Maalox Advanced Suspension (Mag Hydrox/Aluminum Hyd/Simeth) 355 Ml Oral.susp 15 Ml PO PRN AFTMEAL PRN Ativan (Lorazepam) 1 Mg Tablet 0.5 Mg PO Q2HR PRN MDD 2mg/24 hours Acetaminophen 500 Mg Tablet 650 Mg PO Q6HRS PRN Clozapine 100 Mg Tablet 75 Mg PO QHS Trazodone Hcl 50 Mg Tablet 50 Mg PO PRN QHS PRN Timoptic (Timolol Maleate) 10 Ml Drops 1 Drop EACHEYE BID Tamsulosin Hcl 0.4 Mg Cap.er.24h 0.4 Mg PO DAILY Carafate (Sucralfate) 1 Gm Tablet 1 Gm PO QIDACHS Senna (Sennosides) 8.6 Mg Tablet 8.6 Mg PO DAILY Miralax (Polyethylene Glycol 3350) 17 Gm Powd.pack 1 Packet PO DAILY Paxil (Paroxetine Hcl) 20 Mg Tablet 20 Mg PO DAILY Olanzapine 5 Mg Tablet 5 Mg PO BID Toprol Xl (Metoprolol Succinate) 25 Mg Tab.er.24h 25 Mg PO DAILY Lisinopril 10 Mg Tablet 10 Mg PO DAILY Keppra (Levetiracetam) 500 Mg Tablet 500 Mg PO BID Latanoprost 2.5 Ml Drops 1 Drop OS QHS Docusate Sodium 100 Mg Capsule 100 Mg PO BID Chlorpromazine Hcl 100 Mg Tablet 100 Mg PO HS Chlorpromazine Hcl 25 Mg Tablet 25 Mg PO TIDWMEALS Lipitor (Atorvastatin Calcium) 20 Mg Tablet 20 Mg PO QHS Aspirin 81 Mg Tab.chew 81 Mg PO DAILY I have reviewed the current psychotropics carefully including drug interactions. Risk benefit ratio favors no change other than as noted in my dictated progress note. Diagnosis: Problems: (1) UTI (urinary tract infection) due to urinary indwelling catheter (2) Anxiety disorder (3) Bipolar affective disorder, mixed (4) Major depressive disorder, recurrent episode (5) Mild cognitive impairment ANASTACIO REED MD Nov 16, 2018 22:11
[2018-11-17 06:17] VITALS: BP 151/89
[2018-11-17] MEDS: levoFLOXacin 750 MG TABLET PO SCH (06:39)
[2018-11-17] MEDS: PANTOPRAZOLE 40 MG TABLET. PO SCH (06:39)
[2018-11-17] MEDS: LACTOBACILLUS RHAMNOSUS GG 1 CAPSULE. PO SCH ×2 (07:49→19:20)
[2018-11-17] MEDS: DOCUSATE SODIUM 100 MG CAPSULE PO SCH ×2 (07:49→19:20)
[2018-11-17] MEDS: TIMOLOL 0.5% OPHTH SOLUTION 5ML BOTTLE. OU SCH ×2 (07:49→19:22)
[2018-11-17] MEDS: SUCRALFATE 1 GM TABLET. PO SCH ×4 (07:49→19:21)
[2018-11-17] MEDS: levETIRAcetam 500 MG TABLET PO SCH ×2 (07:49→19:21)
[2018-11-17] MEDS: OLANZapine 5 MG TABLET PO SCH ×2 (07:49→19:20)
[2018-11-17] MEDS: PARoxetine 20 MG TABLET PO SCH (07:52)
[2018-11-17] MEDS: POLYETHYLENE GLYCOL 3350 17 GM PACKET. PO SCH (07:52)
[2018-11-17] MEDS: LISINOPRIL 10 MG TABLET PO SCH (07:53)
[2018-11-17] MEDS: SENNOSIDES 8.6 MG TABLET PO SCH (07:53)
[2018-11-17] MEDS: ASPIRIN 81 MG TAB.CHEW PO SCH (07:53)
[2018-11-17] MEDS: chlorproMAZINE HCL 25 MG TABLET PO SCH ×4 (07:54→19:23)
[2018-11-17] MEDS: METOPROLOL SUCC 24HR ER 25 MG TAB.ER.24H. PO SCH (07:54)
[2018-11-17] MEDS ORDERED: TAMSULOSIN 0.4 MG CAP.ER.24H. PO SCH (09:00)
--- NOTE | 2018-11-17 12:00 | CONS ---
DATE OF CONSULTATION: 11/17/2018 REASON FOR CONSULTATION: Medical management. HISTORY OF PRESENT ILLNESS: The patient is a 68-year-old male patient who was [facility] from [facility] where he has been hospitalized for the past several days after he was hospitalized at [facility] a few days before with suicidal ideation. The patient has multiple somatic symptoms, fixated on not being able to take care of himself since he lives by himself at home. He does have a past history of bipolar disorder and states he had had electroconvulsive therapy in the past and was treated by Dr. Gordon for a long period of time. He is depressed, having worsening mood swing. He was stabilized at [facility] and was admitted for inpatient psychiatric stabilization. PAST MEDICAL HISTORY: Significant for coronary artery disease, status post coronary artery bypass graft surgery in 2007, chronic constipation, gastroesophageal reflux disease, hypertension, hyperlipidemia, irritable bowel syndrome, sleep apnea on CPAP, chronic neck and back pain. PAST SURGICAL HISTORY: Significant for coronary artery bypass graft. The patient has also urinary retention for which he required indwelling Key catheter. ALLERGIES: He has an extensive list of allergies. He has more than 50 different medications that he claims that he is allergic to. FAMILY HISTORY: Noncontributory. SOCIAL HISTORY: The patient lives alone. He is from his . He has 2 adult sons. He is not actually . He does not smoke, but used to drink alcohol heavily. MEDICATIONS: He is currently on following medications: He is on tamsulosin 0.4 mg at bedtime, atorvastatin calcium 20 mg at bedtime, metoprolol succinate 25 mg once a day, lisinopril 10 mg once a day, aspirin 81 mg once a day, analgesic balm applied topically 4 times a day, Tylenol 650 mg every 6 hours, Keppra 500 mg twice a day, paroxetine 20 mg daily, trazodone 50 mg at bedtime. He is on chlorpromazine 25 mg 3 times a day and chlorpromazine 100 mg at bedtime, clozapine 75 mg at bedtime, olanzapine 5 mg twice a day, lorazepam 0.5 mg every 2 hours, timolol maleate 1 drop to both eyes twice a day, latanoprost 1 drop to both eyes at bedtime. He is on Colace 100 mg twice a day, milk of magnesia 30 mL p.o. daily p.r.n. for constipation, MiraLax 17 grams daily, senna 1 tablet once a day. He is on sucralfate 1 gram 4 times a day before meals and bedtime, Protonix 40 mg once a day, lactobacillus rhamnosus 1 capsule twice a day, vitamin D 50,000 International Units once a week. REVIEW OF SYSTEMS: As per history of present illness. PHYSICAL EXAMINATION: GENERAL: On examining him, he looked well and was clearly in no apparent respiratory distress, pale, but no jaundice, cyanosis, or thyromegaly. No jugular venous distention. No limb edema. VITAL SIGNS: His heart rate was 76, blood pressure was 115/76, temperature was 98, respiratory rate 20, and oxygen saturation was 97%. HEART: Showed normal first and second heart sounds with no gallop, rub or murmur. CHEST: Clear to auscultation. No crepitation or rhonchi. ABDOMEN: Distended, soft, nontender. NEUROLOGIC: He was awake, alert, responding appropriately. All cranial nerves intact. He moves extremities without difficulty. He ambulates without assistance or assistive devices. He has an indwelling Key catheter. LABORATORY DATA: His lab work showed a white cell count of 6200, hemoglobin 14, hematocrit 39, MCV 95, and platelet count of 189,000. His chemistry showed a serum sodium of 137, potassium 4.1, chloride 100, bicarbonate 30, anion gap of 7, BUN 12, creatinine 0.7, estimated GFR was 112 mL per minute, his glucose 108, calcium was 8.4, magnesium 2. Total bilirubin, AST, ALT, alkaline phosphatase were normal. Total protein was 6, albumin was 2.9. ASSESSMENT AND PLAN: In summary, this is a 68-year-old male patient who was admitted for inpatient psychiatric stabilization as he was treated at [facility] and again at [facility] for suicidal ideation. He apparently has worsening mood swings and was actually treated before with elective compulsive therapy. Medically, he seems to be generally stable. I will obviously follow all the lab works that are still pending and make any necessary recommendation. Thank you, Dr. Linares, for allowing me to participate in the care of this patient. STEFAN PIERCE MD DR: Domi JOB#: [id number] / [id number]
[2018-11-17] MEDS: LORazepam 0.5 MG TABLET PO PRN (13:23)
[2018-11-17 15:55] VITALS: BP 120/83
[2018-11-17] MEDS: ATORVASTATIN CALCIUM 20 MG TABLET PO SCH (19:20)
[2018-11-17] MEDS: LATANOPROST 0.005% OPHTH SOLUTION 2.5ML BOTTLE. OS SCH (19:21)
[2018-11-17] MEDS: cloZAPine 25 MG TABLET PO SCH (19:21)
--- NOTE | 2018-11-17 22:11 | PN ---
DATE: 11/16/2018 PSYCHIATRIC PROGRESS NOTE This late entry 11/16/2018 covers elements not covered in my initial note. SUBJECTIVE: I met with the patient in the evening in his room on . I have discussed with nursing staff on 2 or 3 occasions earlier since the patient appears to be medically stable and ready to go back to the [facility] due to his ongoing anxiety, mood lability, marked somatic preoccupation, and ongoing symptoms of depression. He had been transferred to for his medical stabilization and will return back to [facility] on night of 11/16/2018 after he receives oral dosage of antibiotics per Dr. Robertson, make sure he tolerates it all right. REVIEW OF SYSTEMS: Ambulation impaired. No CV, , pulmonary, eye system symptoms on review. MENTAL STATUS EXAM: Oriented to himself and situation. Speech, often responses monosyllabic. Abstraction fair, computation impaired, language function intact. Mood and affect remains labile. LABORATORY DATA: Reviewed. IMPRESSION: Unchanged from initial note. PLAN: No change from initial note. ANASTACIO REED MD DR: CRYSTAL/nicole JOB#: [id number] / [id number]
--- NOTE | 2018-11-17 22:36 | PDOC ---
Exam Note: Shahram Note: Please also refer to the separate dictated note~for this date of service dictated separately.~Patient seen individually. Discussed the patient with Nursing staff reviewed the chart.~Reviewed interim history and current functioning. Reviewed vital signs,~Labs/ Radiology~and current medications noted below. Continue current treatment with the changes noted in the dictated addendum note Assessment: Vital Signs: Vital Signs Date Time Temp Pulse Resp B/P (MAP) Pulse Ox O2 Delivery O2 Flow Rate FiO2 11/17/18 15:55 98.5 83 16 120/83 (95) 96 11/17/18 06:17 Room Air I&O Intake and Output 11/17/18 06:59 Output Total 1100 ml Balance -1100 ml Output Urine Total 1100 ml Current Medications: Meds: Current Medications Acetaminophen (Tylenol) 650 mg PRN Q6HRS PRN PO PAIN / TEMP; Start 11/16/18 at 20:15 Non-Formulary Medication (Clozapine ) 75 mg QHS PO ; Start 11/16/18 at 21:00; Stop 11/16/18 at 21:01; Status DC Paroxetine HCl (Paxil) 20 mg DAILY PO Last administered on 11/17/18at 07:52; Start 11/17/18 at 09:00 Trazodone HCl (Desyrel) 50 mg PRN QHS PRN PO INSOMNIA; Start 11/16/18 at 21:00 Atorvastatin Calcium (Lipitor) 20 mg QHS PO Last administered on 11/17/18at 19: 20; Start 11/16/18 at 21:00 Vitamin D (Vitamin D3) 50,000 unit WEEKLY PO ; Start 11/23/18 at 09:00 Lisinopril (Prinivil) 10 mg DAILY PO Last administered on 11/17/18at 07:53; Start 11/17/18 at 09:00 Metoprolol Succinate (Toprol Xl) 25 mg DAILY PO Last administered on 11/17/18at 07:54; Start 11/17/18 at 09:00 Tamsulosin HCl (Flomax) 0.4 mg DAILY PO Last administered on 11/17/18at 08:11; Start 11/17/18 at 09:00; Stop 11/17/18 at 17:42; Status DC Acetaminophen (Tylenol) 650 mg PRN Q6HRS PRN PO PAIN / TEMP; Start 11/16/18 at 21:15; Status Cancel Aspirin (Children'S Aspirin) 81 mg DAILYWBKFT PO Last administered on 07:53; Start 11/17/18 at 08:00 Docusate Sodium (Colace) 100 mg BID PO Last administered on 11/17/18 19:20; Start 11/16/18 at 21:15 Lactobacillus Rhamnosus (Culturelle) 1 cap BID PO Last administered on 19:20; Start 11/16/18 at 21:30 Latanoprost (Xalatan) 1 drop QHS OS Last administered on 11/17/18 19:21; Start 11/16/18 at 21:30 Levetiracetam (Keppra) 500 mg BID PO Last administered on 11/17/18 19:21; Start 11/16/18 at 21:30 Levofloxacin (Levaquin) 750 mg DAILY06 PO Last administered on 11/17/18 06:39 ; Start 11/17/18 at 06:00 Al Hydroxide/Mg Hydroxide (Mylanta Plus Xs) 15 ml PRN AFTMEALHC PRN PO DYSPEPSIA; Start 11/16/18 at 21:15 Magnesium Hydroxide (Milk Of Magnesia) 2,400 mg PRN QHS PRN PO CONSTIPATION; Start 11/16/18 at 21:15 Pantoprazole Sodium (Protonix) 40 mg DAILY06 PO Last administered on 11/17/18 06:39; Start 11/17/18 at 06:00 Polyethylene Glycol (miraLAX) 17 gm DAILY PO Last administered on 11/17/18 07: 52; Start 11/17/18 at 09:00 Sennosides (Senna) 8.6 mg DAILY PO Last administered on 11/17/18 07:53; Start 11/17/18 at 09:00 Sucralfate (Carafate) 1 gm QIDACHS PO Last administered on 11/17/18 19:21; Start 11/16/18 at 21:30 Timolol Maleate (Timoptic 0.5% Ophth) 1 drop BID OU Last administered on 19:22; Start 11/16/18 at 21:30 Chlorpromazine HCl (Thorazine) 25 mg TIDWMEALS PO Last administered on 17:56; Start 11/17/18 at 08:00 Chlorpromazine HCl (Thorazine) 100 mg HS PO Last administered on 11/17/18 19: 23; Start 11/16/18 at 21:30 Olanzapine (ZyPREXA) 5 mg BID PO Last administered on 11/17/18 19:20; Start at 21:30 Clozapine (Clozaril) 75 mg HS PO Last administered on 11/17/18at 19:21; Start at 21:00 Lorazepam (Ativan) 0.25 mg PRN Q2HR PRN PO ANXIETY / AGITATION Last administered on 11/17/18 13:23; Start 11/17/18 at 13:00 Tamsulosin HCl (Flomax) 0.8 mg DAILY PO ; Start 11/18/18 at 09:00 Active Scripts Active Levaquin (Levofloxacin) 750 Mg Tablet 1 Tab PO DAILY 7 Days Reported Culturelle (Lactobacillus Rhamnosus Gg) 1 Each Capsule 1 Each PO BID Protonix (Pantoprazole Sodium) 40 Mg Tablet.dr 40 Mg PO DAILY06 Analgesic [place] (Methyl Salicylate/Menthol) 28 Gm Oint...g. 1 Jose Elias TP PRN QID PRN D3-50 (Cholecalciferol (Vitamin D3)) 50,000 Unit Capsule 50,000 Unit PO WEEKLY Milk Of Magnesia (Magnesium Hydroxide) 2,400 Mg/10 Ml Oral.susp 2,400 Mg PO QHS PRN Maalox Advanced Suspension (Mag Hydrox/Aluminum Hyd/Simeth) 355 Ml Oral.susp 15 Ml PO PRN AFTMEAL PRN Ativan (Lorazepam) 1 Mg Tablet 0.5 Mg PO Q2HR PRN MDD 2mg/24 hours Acetaminophen 500 Mg Tablet 650 Mg PO Q6HRS PRN Clozapine 100 Mg Tablet 75 Mg PO QHS Trazodone Hcl 50 Mg Tablet 50 Mg PO PRN QHS PRN Timoptic (Timolol Maleate) 10 Ml Drops 1 Drop EACHEYE BID Tamsulosin Hcl 0.4 Mg Cap.er.24h 0.4 Mg PO DAILY Carafate (Sucralfate) 1 Gm Tablet 1 Gm PO QIDACHS Senna (Sennosides) 8.6 Mg Tablet 8.6 Mg PO DAILY Miralax (Polyethylene Glycol 3350) 17 Gm Powd.pack 1 Packet PO DAILY Paxil (Paroxetine Hcl) 20 Mg Tablet 20 Mg PO DAILY Olanzapine 5 Mg Tablet 5 Mg PO BID Toprol Xl (Metoprolol Succinate) 25 Mg Tab.er.24h 25 Mg PO DAILY Lisinopril 10 Mg Tablet 10 Mg PO DAILY Keppra (Levetiracetam) 500 Mg Tablet 500 Mg PO BID Latanoprost 2.5 Ml Drops 1 Drop OS QHS Docusate Sodium 100 Mg Capsule 100 Mg PO BID Chlorpromazine Hcl 100 Mg Tablet 100 Mg PO HS Chlorpromazine Hcl 25 Mg Tablet 25 Mg PO TIDWMEALS Lipitor (Atorvastatin Calcium) 20 Mg Tablet 20 Mg PO QHS Aspirin 81 Mg Tab.chew 81 Mg PO DAILY I have reviewed the current psychotropics carefully including drug interactions. Risk benefit ratio favors no change other than as noted in my dictated progress note. Diagnosis: Problems: (1) UTI (urinary tract infection) due to urinary indwelling catheter (2) Anxiety disorder (3) Bipolar affective disorder, mixed (4) Major depressive disorder, recurrent episode (5) Mild cognitive impairment ANASTACIO REED MD Nov 17, 2018 22:36
[2018-11-18] MEDS: levoFLOXacin 750 MG TABLET PO SCH (04:51)
[2018-11-18] MEDS: PANTOPRAZOLE 40 MG TABLET. PO SCH (04:51)
[2018-11-18 06:56] VITALS: BP 111/69
[2018-11-18] MEDS: OLANZapine 5 MG TABLET PO SCH ×2 (07:58→19:20)
[2018-11-18] MEDS: levETIRAcetam 500 MG TABLET PO SCH ×2 (07:58→19:20)
[2018-11-18] MEDS: LACTOBACILLUS RHAMNOSUS GG 1 CAPSULE. PO SCH ×2 (07:58→19:20)
[2018-11-18] MEDS: LISINOPRIL 10 MG TABLET PO SCH (07:59)
[2018-11-18] MEDS: SUCRALFATE 1 GM TABLET. PO SCH ×4 (07:59→19:20)
[2018-11-18] MEDS: METOPROLOL SUCC 24HR ER 25 MG TAB.ER.24H. PO SCH (07:59)
[2018-11-18] MEDS: PARoxetine 20 MG TABLET PO SCH (07:59)
[2018-11-18] MEDS: DOCUSATE SODIUM 100 MG CAPSULE PO SCH ×2 (07:59→19:20)
[2018-11-18] MEDS: TIMOLOL 0.5% OPHTH SOLUTION 5ML BOTTLE. OU SCH ×2 (08:00→19:19)
[2018-11-18] MEDS: ASPIRIN 81 MG TAB.CHEW PO SCH (08:00)
[2018-11-18] MEDS: LORazepam 0.5 MG TABLET PO PRN (08:00)
[2018-11-18] MEDS: SENNOSIDES 8.6 MG TABLET PO SCH (08:00)
[2018-11-18] MEDS: POLYETHYLENE GLYCOL 3350 17 GM PACKET. PO SCH (08:00)
[2018-11-18] MEDS: chlorproMAZINE HCL 25 MG TABLET PO SCH ×4 (08:00→19:21)
[2018-11-18] MEDS: TAMSULOSIN 0.4 MG CAP.ER.24H. PO SCH (08:01)
[2018-11-18 15:36] VITALS: BP 106/77
[2018-11-18] MEDS: LATANOPROST 0.005% OPHTH SOLUTION 2.5ML BOTTLE. OS SCH (19:19)
[2018-11-18] MEDS: cloZAPine 25 MG TABLET PO SCH (19:20)
[2018-11-18] MEDS: ATORVASTATIN CALCIUM 20 MG TABLET PO SCH (19:20)
--- NOTE | 2018-11-18 19:56 | HP ---
ADMIT DATE: 11/17/2018 PSYCHIATRIC ADMISSION HISTORY AND EVALUATION This late entry, date of service 11/17/2018, covers elements not covered in my initial note. I met with the patient on the evening of 11/17/2018 for this evaluation. IDENTIFYING DATA: The patient is a 68-year-old male referred back to us from [address] [place] [address] after he was medically stabilized for his UTI and sepsis after he was transferred there from our unit when he is being stabilized with bipolar disorder. He is now medically stable, referred back to us for inpatient psychiatric stabilization due to ongoing mood lability, anxiety, irritability. CHIEF COMPLAINT: "Catheter is a problem." HISTORY OF PRESENT ILLNESS: The patient has a history of bipolar disorder, mixed with psychotic features. He was initially admitted to us for psychiatric stabilization as he was unable to function at home where he was living alone with marked somatic symptoms and had been stabilized on an inpatient med-surg unit. While on the unit, he was started on Clozaril for his bipolar disorder since he has allergies to 52 medications and all psychotropics. He remained on Paxil along with Thorazine and Zyprexa with the hope and plan to taper the Zyprexa and Thorazine once the Clozaril was therapeutic. Nevertheless, he developed the UTI at that stage and he was transferred down and now back again with us since he has continued to have marked mood lability, anxiety, irritability. PAST PSYCHIATRIC HISTORY: As above. PAST MEDICAL HISTORY: Positive for UTI as above, coronary artery bypass graft in 2007, chronic constipation, GERD, hypertension, hyperlipidemia, irritable bowel syndrome, sleep apnea, chronic neck and back pain, marked somatic symptoms. ACCU-CHEKS: None. CODE STATUS: Full code. ALLERGIES: He has multiple drug allergies and I have reviewed these at length, total of 52. DIET: Level 2 dysphagia, ground meat, meds to hold with water or applesauce, ambulates in wheelchair. CURRENT PSYCHOTROPICS: MRAD was reviewed. FAMILY HISTORY: Noncontributory. SOCIAL HISTORY: No physical, sexual, or elder abuse history is noted. Not known to be a perpetrator. MENTAL STATUS EXAMINATION: Oriented to himself and situation. Speech is coherent, abstraction fair, computation impaired, language function intact, attention span short. Mood and affect remain somewhat labile and very somatically preoccupied, obsessive. No active suicidal or homicidal ideation. LABORATORY DATA: Reviewed. IMPRESSION: Bipolar 1 disorder, mixed with psychotic features; anxiety disorder, unspecified; impulse control disorder, unspecified. Rest as above. PLAN: Admit to geropsychiatry unit at [facility]. I will see the patient daily individually from a psychiatric standpoint. We will gradually increase the Clozaril, post-weekly labs and absolute neutrophil count. Rest unchanged for now. MAN Villa REED MD DR: CRYSTAL/nicole JOB#: [id number] / [id number]
--- NOTE | 2018-11-18 21:31 | PDOC ---
Exam Note: Shahram Note: Please also refer to the separate dictated note~for this date of service dictated separately.~Patient seen individually. Discussed the patient with Nursing staff reviewed the chart.~Reviewed interim history and current functioning. Reviewed vital signs,~Labs/ Radiology~and current medications noted below. Continue current treatment with the changes noted in the dictated addendum note Assessment: Vital Signs: Vital Signs Date Time Temp Pulse Resp B/P (MAP) Pulse Ox O2 Delivery O2 Flow Rate FiO2 11/18/18 15:36 97.2 83 20 106/77 (87) 97 11/17/18 06:17 Room Air I&O Intake and Output 11/18/18 06:59 Intake Total 900 ml Output Total 1400 ml Balance -500 ml Intake Oral 900 ml Output Urine Total 1400 ml # Voids 1 Current Medications: Meds: Current Medications Acetaminophen (Tylenol) 650 mg PRN Q6HRS PRN PO PAIN / TEMP; Start 11/16/18 at 20:15 Non-Formulary Medication (Clozapine ) 75 mg QHS PO ; Start 11/16/18 at 21:00; Stop 11/16/18 at 21:01; Status DC Paroxetine HCl (Paxil) 20 mg DAILY PO Last administered on 11/18/18at 07:59; Start 11/17/18 at 09:00 Trazodone HCl (Desyrel) 50 mg PRN QHS PRN PO INSOMNIA; Start 11/16/18 at 21:00 Atorvastatin Calcium (Lipitor) 20 mg QHS PO Last administered on 11/18/18at 19: 20; Start 11/16/18 at 21:00 Vitamin D (Vitamin D3) 50,000 unit WEEKLY PO ; Start 11/23/18 at 09:00 Lisinopril (Prinivil) 10 mg DAILY PO Last administered on 11/18/18at 07:59; Start 11/17/18 at 09:00 Metoprolol Succinate (Toprol Xl) 25 mg DAILY PO Last administered on 11/18/18at 07:59; Start 11/17/18 at 09:00 Tamsulosin HCl (Flomax) 0.4 mg DAILY PO Last administered on 11/17/18at 08:11; Start 11/17/18 at 09:00; Stop 11/17/18 at 17:42; Status DC Acetaminophen (Tylenol) 650 mg PRN Q6HRS PRN PO PAIN / TEMP; Start 11/16/18 at 21:15; Status Cancel Aspirin (Children'S Aspirin) 81 mg DAILYWBKFT PO Last administered on 08:00; Start 11/17/18 at 08:00 Docusate Sodium (Colace) 100 mg BID PO Last administered on 11/18/18 19:20; Start 11/16/18 at 21:15 Lactobacillus Rhamnosus (Culturelle) 1 cap BID PO Last administered on 19:20; Start 11/16/18 at 21:30 Latanoprost (Xalatan) 1 drop QHS OS Last administered on 11/18/18 19:19; Start 11/16/18 at 21:30 Levetiracetam (Keppra) 500 mg BID PO Last administered on 11/18/18 19:20; Start 11/16/18 at 21:30 Levofloxacin (Levaquin) 750 mg DAILY06 PO Last administered on 11/18/18 04:51 ; Start 11/17/18 at 06:00 Al Hydroxide/Mg Hydroxide (Mylanta Plus Xs) 15 ml PRN AFTMEALHC PRN PO DYSPEPSIA; Start 11/16/18 at 21:15 Magnesium Hydroxide (Milk Of Magnesia) 2,400 mg PRN QHS PRN PO CONSTIPATION; Start 11/16/18 at 21:15 Pantoprazole Sodium (Protonix) 40 mg DAILY06 PO Last administered on 11/18/18 04:51; Start 11/17/18 at 06:00 Polyethylene Glycol (miraLAX) 17 gm DAILY PO Last administered on 11/18/18 08: 00; Start 11/17/18 at 09:00 Sennosides (Senna) 8.6 mg DAILY PO Last administered on 11/18/18 08:00; Start 11/17/18 at 09:00 Sucralfate (Carafate) 1 gm QIDACHS PO Last administered on 11/18/18 19:20; Start 11/16/18 at 21:30 Timolol Maleate (Timoptic 0.5% [facility]) 1 drop BID OU Last administered on 19:19; Start 11/16/18 at 21:30 Chlorpromazine HCl (Thorazine) 25 mg TIDWMEALS PO Last administered on 18:10; Start 11/17/18 at 08:00 Chlorpromazine HCl (Thorazine) 100 mg HS PO Last administered on 11/18/18at 19: 21; Start 11/16/18 at 21:30 Olanzapine (ZyPREXA) 5 mg BID PO Last administered on 11/18/18 19:20; Start at 21:30 Clozapine (Clozaril) 75 mg HS PO Last administered on 11/18/18 19:20; Start at 21:00 Lorazepam (Ativan) 0.25 mg PRN Q2HR PRN PO ANXIETY / AGITATION Last administered on 11/18/18at 08:00; Start 11/17/18 at 13:00 Tamsulosin HCl (Flomax) 0.8 mg DAILY PO Last administered on 11/18/18 08:01; Start 11/18/18 at 09:00 Active Scripts Active Levaquin (Levofloxacin) 750 Mg Tablet 1 Tab PO DAILY 7 Days Reported Culturelle (Lactobacillus Rhamnosus Gg) 1 Each Capsule 1 Each PO BID Protonix (Pantoprazole Sodium) 40 Mg Tablet.dr 40 Mg PO DAILY06 Analgesic [place] (Methyl Salicylate/Menthol) 28 Gm Oint...g. 1 Jose Elias TP PRN QID PRN D3-50 (Cholecalciferol (Vitamin D3)) 50,000 Unit Capsule 50,000 Unit PO WEEKLY Milk Of Magnesia (Magnesium Hydroxide) 2,400 Mg/10 Ml Oral.susp 2,400 Mg PO QHS PRN Maalox Advanced Suspension (Mag Hydrox/Aluminum Hyd/Simeth) 355 Ml Oral.susp 15 Ml PO PRN AFTMEAL PRN Ativan (Lorazepam) 1 Mg Tablet 0.5 Mg PO Q2HR PRN MDD 2mg/24 hours Acetaminophen 500 Mg Tablet 650 Mg PO Q6HRS PRN Clozapine 100 Mg Tablet 75 Mg PO QHS Trazodone Hcl 50 Mg Tablet 50 Mg PO PRN QHS PRN Timoptic (Timolol Maleate) 10 Ml Drops 1 Drop EACHEYE BID Tamsulosin Hcl 0.4 Mg Cap.er.24h 0.4 Mg PO DAILY Carafate (Sucralfate) 1 Gm Tablet 1 Gm PO QIDACHS Senna (Sennosides) 8.6 Mg Tablet 8.6 Mg PO DAILY Miralax (Polyethylene Glycol 3350) 17 Gm Powd.pack 1 Packet PO DAILY Paxil (Paroxetine Hcl) 20 Mg Tablet 20 Mg PO DAILY Olanzapine 5 Mg Tablet 5 Mg PO BID Toprol Xl (Metoprolol Succinate) 25 Mg Tab.er.24h 25 Mg PO DAILY Lisinopril 10 Mg Tablet 10 Mg PO DAILY Keppra (Levetiracetam) 500 Mg Tablet 500 Mg PO BID Latanoprost 2.5 Ml Drops 1 Drop OS QHS Docusate Sodium 100 Mg Capsule 100 Mg PO BID Chlorpromazine Hcl 100 Mg Tablet 100 Mg PO HS Chlorpromazine Hcl 25 Mg Tablet 25 Mg PO TIDWMEALS Lipitor (Atorvastatin Calcium) 20 Mg Tablet 20 Mg PO QHS Aspirin 81 Mg Tab.chew 81 Mg PO DAILY I have reviewed the current psychotropics carefully including drug interactions. Risk benefit ratio favors no change other than as noted in my dictated progress note. Diagnosis: Problems: (1) UTI (urinary tract infection) due to urinary indwelling catheter (2) Anxiety disorder (3) Bipolar affective disorder, mixed (4) Major depressive disorder, recurrent episode (5) Mild cognitive impairment ANASTACIO REED MD Nov 18, 2018 21:31
[2018-11-19] MEDS: PANTOPRAZOLE 40 MG TABLET. PO SCH (04:54)
[2018-11-19] MEDS: levoFLOXacin 750 MG TABLET PO SCH (04:54)
[2018-11-19 06:05] VITALS: BP 148/84
[2018-11-19] MEDS: POLYETHYLENE GLYCOL 3350 17 GM PACKET. PO SCH (07:39)
[2018-11-19] MEDS: TIMOLOL 0.5% OPHTH SOLUTION 5ML BOTTLE. OU SCH ×2 (07:39→21:36)
[2018-11-19] MEDS: SUCRALFATE 1 GM TABLET. PO SCH ×4 (07:39→20:34)
[2018-11-19] MEDS: METOPROLOL SUCC 24HR ER 25 MG TAB.ER.24H. PO SCH (07:40)
[2018-11-19] MEDS: LACTOBACILLUS RHAMNOSUS GG 1 CAPSULE. PO SCH ×2 (07:40→20:34)
[2018-11-19] MEDS: levETIRAcetam 500 MG TABLET PO SCH ×2 (07:41→20:34)
[2018-11-19] MEDS: OLANZapine 5 MG TABLET PO SCH ×2 (07:41→20:35)
[2018-11-19] MEDS: SENNOSIDES 8.6 MG TABLET PO SCH (07:41)
[2018-11-19] MEDS: ASPIRIN 81 MG TAB.CHEW PO SCH (07:41)
[2018-11-19] MEDS: DOCUSATE SODIUM 100 MG CAPSULE PO SCH ×2 (07:41→20:34)
[2018-11-19] MEDS: LISINOPRIL 10 MG TABLET PO SCH (07:41)
[2018-11-19] MEDS: PARoxetine 20 MG TABLET PO SCH (07:41)
[2018-11-19] MEDS: chlorproMAZINE HCL 25 MG TABLET PO SCH ×4 (07:42→21:44)
[2018-11-19] MEDS: TAMSULOSIN 0.4 MG CAP.ER.24H. PO SCH (07:43)
[2018-11-19 16:09] VITALS: BP 111/74
--- NOTE | 2018-11-19 19:38 | PDOC ---
Exam Note: Shahram Note: Please also refer to the separate dictated note~for this date of service dictated separately.~Patient seen individually. Discussed the patient with Nursing staff reviewed the chart.~Reviewed interim history and current functioning. Reviewed vital signs,~Labs/ Radiology~and current medications noted below. Continue current treatment with the changes noted in the dictated addendum note Assessment: Vital Signs: Vital Signs Date Time Temp Pulse Resp B/P (MAP) Pulse Ox O2 Delivery O2 Flow Rate FiO2 11/19/18 16:09 98.2 78 20 111/74 (86) 98 11/17/18 06:17 Room Air I&O Intake and Output 11/19/18 06:59 Intake Total 960 ml Output Total 1900 ml Balance -940 ml Intake Oral 720 ml Tube Feeding 240 ml Output Urine Total 1900 ml Current Medications: Meds: Current Medications Acetaminophen (Tylenol) 650 mg PRN Q6HRS PRN PO PAIN / TEMP; Start 11/16/18 at 20:15 Non-Formulary Medication (Clozapine ) 75 mg QHS PO ; Start 11/16/18 at 21:00; Stop 11/16/18 at 21:01; Status DC Paroxetine HCl (Paxil) 20 mg DAILY PO Last administered on 11/19/18at 07:41; Start 11/17/18 at 09:00 Trazodone HCl (Desyrel) 50 mg PRN QHS PRN PO INSOMNIA; Start 11/16/18 at 21:00 Atorvastatin Calcium (Lipitor) 20 mg QHS PO Last administered on 11/18/18at 19: 20; Start 11/16/18 at 21:00 Vitamin D (Vitamin D3) 50,000 unit WEEKLY PO ; Start 11/23/18 at 09:00 Lisinopril (Prinivil) 10 mg DAILY PO Last administered on 11/19/18at 07:41; Start 11/17/18 at 09:00 Metoprolol Succinate (Toprol Xl) 25 mg DAILY PO Last administered on 11/19/18at 07:40; Start 11/17/18 at 09:00 Tamsulosin HCl (Flomax) 0.4 mg DAILY PO Last administered on 11/17/18at 08:11; Start 11/17/18 at 09:00; Stop 11/17/18 at 17:42; Status DC Acetaminophen (Tylenol) 650 mg PRN Q6HRS PRN PO PAIN / TEMP; Start 11/16/18 at 21:15; Status Cancel Aspirin (Children'S Aspirin) 81 mg DAILYWBKFT PO Last administered on 07:41; Start 11/17/18 at 08:00 Docusate Sodium (Colace) 100 mg BID PO Last administered on 11/19/18 07:41; Start 11/16/18 at 21:15 Lactobacillus Rhamnosus (Culturelle) 1 cap BID PO Last administered on 07:40; Start 11/16/18 at 21:30 Latanoprost (Xalatan) 1 drop QHS OS Last administered on 11/18/18 19:19; Start 11/16/18 at 21:30 Levetiracetam (Keppra) 500 mg BID PO Last administered on 11/19/18 07:41; Start 11/16/18 at 21:30 Levofloxacin (Levaquin) 750 mg DAILY06 PO Last administered on 11/19/18 04:54 ; Start 11/17/18 at 06:00 Al Hydroxide/Mg Hydroxide (Mylanta Plus Xs) 15 ml PRN AFTMEALHC PRN PO DYSPEPSIA; Start 11/16/18 at 21:15 Magnesium Hydroxide (Milk Of Magnesia) 2,400 mg PRN QHS PRN PO CONSTIPATION; Start 11/16/18 at 21:15 Pantoprazole Sodium (Protonix) 40 mg DAILY06 PO Last administered on 11/19/18 04:54; Start 11/17/18 at 06:00 Polyethylene Glycol (miraLAX) 17 gm DAILY PO Last administered on 11/19/18 07: 39; Start 11/17/18 at 09:00 Sennosides (Senna) 8.6 mg DAILY PO Last administered on 11/19/18 07:41; Start 11/17/18 at 09:00 Sucralfate (Carafate) 1 gm QIDACHS PO Last administered on 11/19/18 17:40; Start 11/16/18 at 21:30 Timolol Maleate (Timoptic 0.5% [facility]) 1 drop BID OU Last administered on 07:39; Start 11/16/18 at 21:30 Chlorpromazine HCl (Thorazine) 25 mg TIDWMEALS PO Last administered on 17:40; Start 11/17/18 at 08:00 Chlorpromazine HCl (Thorazine) 100 mg HS PO Last administered on 11/18/18 19: 21; Start 11/16/18 at 21:30 Olanzapine (ZyPREXA) 5 mg BID PO Last administered on 11/19/18 07:41; Start at 21:30 Clozapine (Clozaril) 75 mg HS PO Last administered on 11/18/18 19:20; Start at 21:00 Lorazepam (Ativan) 0.25 mg PRN Q2HR PRN PO ANXIETY / AGITATION Last administered on 11/18/18 08:00; Start 11/17/18 at 13:00 Tamsulosin HCl (Flomax) 0.8 mg DAILY PO Last administered on 11/19/18 07:43; Start 11/18/18 at 09:00 Active Scripts Active Levaquin (Levofloxacin) 750 Mg Tablet 1 Tab PO DAILY 7 Days Reported Culturelle (Lactobacillus Rhamnosus Gg) 1 Each Capsule 1 Each PO BID Protonix (Pantoprazole Sodium) 40 Mg Tablet.dr 40 Mg PO DAILY06 Analgesic [place] (Methyl Salicylate/Menthol) 28 Gm Oint...g. 1 Jose Elias TP PRN QID PRN D3-50 (Cholecalciferol (Vitamin D3)) 50,000 Unit Capsule 50,000 Unit PO WEEKLY Milk Of Magnesia (Magnesium Hydroxide) 2,400 Mg/10 Ml Oral.susp 2,400 Mg PO QHS PRN Maalox Advanced Suspension (Mag Hydrox/Aluminum Hyd/Simeth) 355 Ml Oral.susp 15 Ml PO PRN AFTMEAL PRN Ativan (Lorazepam) 1 Mg Tablet 0.5 Mg PO Q2HR PRN MDD 2mg/24 hours Acetaminophen 500 Mg Tablet 650 Mg PO Q6HRS PRN Clozapine 100 Mg Tablet 75 Mg PO QHS Trazodone Hcl 50 Mg Tablet 50 Mg PO PRN QHS PRN Timoptic (Timolol Maleate) 10 Ml Drops 1 Drop EACHEYE BID Tamsulosin Hcl 0.4 Mg Cap.er.24h 0.4 Mg PO DAILY Carafate (Sucralfate) 1 Gm Tablet 1 Gm PO QIDACHS Senna (Sennosides) 8.6 Mg Tablet 8.6 Mg PO DAILY Miralax (Polyethylene Glycol 3350) 17 Gm Powd.pack 1 Packet PO DAILY Paxil (Paroxetine Hcl) 20 Mg Tablet 20 Mg PO DAILY Olanzapine 5 Mg Tablet 5 Mg PO BID Toprol Xl (Metoprolol Succinate) 25 Mg Tab.er.24h 25 Mg PO DAILY Lisinopril 10 Mg Tablet 10 Mg PO DAILY Keppra (Levetiracetam) 500 Mg Tablet 500 Mg PO BID Latanoprost 2.5 Ml Drops 1 Drop OS QHS Docusate Sodium 100 Mg Capsule 100 Mg PO BID Chlorpromazine Hcl 100 Mg Tablet 100 Mg PO HS Chlorpromazine Hcl 25 Mg Tablet 25 Mg PO TIDWMEALS Lipitor (Atorvastatin Calcium) 20 Mg Tablet 20 Mg PO QHS Aspirin 81 Mg Tab.chew 81 Mg PO DAILY I have reviewed the current psychotropics carefully including drug interactions. Risk benefit ratio favors no change other than as noted in my dictated progress note. Diagnosis: Problems: (1) UTI (urinary tract infection) due to urinary indwelling catheter (2) Anxiety disorder (3) Bipolar affective disorder, mixed (4) Major depressive disorder, recurrent episode (5) Mild cognitive impairment ANASTACIO REED MD Nov 19, 2018 19:38
[2018-11-19] MEDS: cloZAPine 25 MG TABLET PO SCH (20:34)
[2018-11-19] MEDS: ATORVASTATIN CALCIUM 20 MG TABLET PO SCH (20:34)
[2018-11-19] MEDS: LATANOPROST 0.005% OPHTH SOLUTION 2.5ML BOTTLE. OS SCH (21:37)
[2018-11-20] MEDS: levoFLOXacin 750 MG TABLET PO SCH (04:47)
[2018-11-20] MEDS: PANTOPRAZOLE 40 MG TABLET. PO SCH (04:47)
[2018-11-20 06:07] VITALS: BP 126/76
[2018-11-20] MEDS: DOCUSATE SODIUM 100 MG CAPSULE PO SCH ×2 (07:50→19:58)
[2018-11-20] MEDS: LACTOBACILLUS RHAMNOSUS GG 1 CAPSULE. PO SCH ×2 (07:50→19:57)
[2018-11-20] MEDS: POLYETHYLENE GLYCOL 3350 17 GM PACKET. PO SCH (07:50)
[2018-11-20] MEDS: SUCRALFATE 1 GM TABLET. PO SCH ×4 (07:50→19:58)
[2018-11-20] MEDS: TIMOLOL 0.5% OPHTH SOLUTION 5ML BOTTLE. OU SCH ×2 (07:50→20:00)
[2018-11-20] MEDS: PARoxetine 20 MG TABLET PO SCH (07:51)
[2018-11-20] MEDS: OLANZapine 5 MG TABLET PO SCH ×2 (07:51→19:58)
[2018-11-20] MEDS: chlorproMAZINE HCL 25 MG TABLET PO SCH ×4 (07:51→20:00)
[2018-11-20] MEDS: TAMSULOSIN 0.4 MG CAP.ER.24H. PO SCH (07:51)
[2018-11-20] MEDS: METOPROLOL SUCC 24HR ER 25 MG TAB.ER.24H. PO SCH (07:51)
[2018-11-20] MEDS: LISINOPRIL 10 MG TABLET PO SCH (07:51)
[2018-11-20] MEDS: levETIRAcetam 500 MG TABLET PO SCH ×2 (07:51→19:58)
[2018-11-20] MEDS: SENNOSIDES 8.6 MG TABLET PO SCH (07:52)
[2018-11-20] MEDS: ASPIRIN 81 MG TAB.CHEW PO SCH (07:52)
[2018-11-20 15:44] VITALS: BP 103/55
[2018-11-20 18:09] LABS: BASO # 0.1 x10^3/uL (0.0-0.2); BASO % 1 % (0-3); EOS # 0.2 x10^3/uL (0.0-0.7); EOS % 3 % (0-3); HEMATOCRIT 40.8 % (39.0-53.0); HEMOGLOBIN 13.9 g/dL (13.0-17.5); LYMPH # 1.7 x10^3/uL (1.0-4.8); LYMPH % 21 % (24-48); MEAN CORPUSCULAR HEMOGLOBIN 33 pg (25-35); MEAN CORPUSCULAR HGB CONC 34 g/dL (31-37); MEAN CORPUSCULAR VOLUME 97 fL (79-100); MONO # 0.4 x10^3/uL (0.0-1.1); MONO % 5 % (0-9); NEUT % 71 % (31-73); PLATELET COUNT 212 x10^3/uL (140-400); RED BLOOD COUNT 4.19 x10^6/uL (4.30-5.70); RED CELL DISTRIBUTION WIDTH 12.9 % (11.5-14.5); WHITE BLOOD COUNT 8.4 x10^3/uL (4.0-11.0)
[2018-11-20 18:21] LABS: ALBUMIN 3.6 g/dL (3.4-5.0); CALCIUM 9.3 mg/dL (8.5-10.1); CREATININE 0.9 mg/dL (0.7-1.3); GFR 83.9; TOTAL BILIRUBIN 0.6 mg/dL (0.2-1.0); TOTAL PROTEIN 7.3 g/dL (6.4-8.2)
--- NOTE | 2018-11-20 18:27 | PN ---
DATE: 11/18/2018 PSYCHIATRIC PROGRESS NOTE This late entry 11/18/2018 covers elements not covered in my initial note SUBJECTIVE: I met with the patient in the evening. The patient slept 8 hours previous night, has done better during the day, has not thrown himself on the floor like he did the day before. REVIEW OF SYSTEMS: Still positive for some shortness of breath, impaired ambulation. No CV, , eye, ENT system symptoms on review. MENTAL STATUS EXAM: Oriented to himself and situation. Speech has some latency, coherent. Abstraction fair, computation impaired, language function intact, attention span short. Mood and affect remain somewhat anxious, labile. IMPRESSION: Unchanged from initial note. PLAN: No change from initial note. MAN Villa REED MD DR: CRYSTAL/nicole JOB#: [id number] / [id number]
--- NOTE | 2018-11-20 18:29 | PN ---
DATE: 11/19/2018 PSYCHIATRIC PROGRESS NOTE This late entry 11/19/2018 covers elements not covered in my initial note. SUBJECTIVE: I met with the patient in the evening in his room. He slept 9-1/4 hours previous night. Overall, he is somewhat anxious, labile, but better, not aggressive. REVIEW OF SYSTEMS: Shortness of breath, impaired ambulation. No CV, , GI, eye system symptoms on review. MENTAL STATUS EXAM: Oriented to himself situation. Speech has some latency, often responses monosyllabic. Abstraction fair, computation impaired, language function intact, attention span short. Mood and affect somewhat withdrawn, anxious. LABORATORY DATA: Reviewed. Absolute neutrophil count will be checked 11/20/2018 and then we will adjust the Clozaril. IMPRESSION: Unchanged from initial note. PLAN: No change from initial note. MAN AbbyTraci REED MD DR: CRYSTAL/nicole JOB#: [id number] / [id number]
[2018-11-20] MEDS: ATORVASTATIN CALCIUM 20 MG TABLET PO SCH (19:58)
[2018-11-20] MEDS: LATANOPROST 0.005% OPHTH SOLUTION 2.5ML BOTTLE. OS SCH (20:00)
[2018-11-20] MEDS: cloZAPine 100 MG TABLET PO SCH (20:00)
--- NOTE | 2018-11-20 22:11 | PDOC ---
Exam Note: Shahram Note: Please also refer to the separate dictated note~for this date of service dictated separately.~Patient seen individually. Discussed the patient with Nursing staff reviewed the chart.~Reviewed interim history and current functioning. Reviewed vital signs,~Labs/ Radiology~and current medications noted below. Continue current treatment with the changes noted in the dictated addendum note Assessment: Vital Signs: Vital Signs Date Time Temp Pulse Resp B/P (MAP) Pulse Ox O2 Delivery O2 Flow Rate FiO2 11/20/18 15:44 98.5 67 16 103/55 (71) 97 11/17/18 06:17 Room Air I&O Intake and Output 11/20/18 06:59 Intake Total 1080 ml Output Total 800 ml Balance 280 ml Intake Oral 1080 ml Output Urine Total 800 ml Labs: Laboratory Tests Test 11/20/18 18:03 White Blood Count 8.4 x10^3/uL (4.0-11.0) # Red Blood Count 4.19 x10^6/uL (4.30-5.70) L Hemoglobin 13.9 g/dL (13.0-17.5) Hematocrit 40.8 % (39.0-53.0) Mean Corpuscular Volume 97 fL (79-100) Mean Corpuscular Hemoglobin 33 pg (25-35) Mean Corpuscular Hemoglobin Concent 34 g/dL (31-37) Red Cell Distribution Width 12.9 % (11.5-14.5) Platelet Count 212 x10^3/uL (140-400) Neutrophils (%) (Auto) 71 % (31-73) Lymphocytes (%) (Auto) 21 % (24-48) L Monocytes (%) (Auto) 5 % (0-9) Eosinophils (%) (Auto) 3 % (0-3) Basophils (%) (Auto) 1 % (0-3) Neutrophils # (Auto) 6.0 x10^3uL (1.8-7.7) Lymphocytes # (Auto) 1.7 x10^3/uL (1.0-4.8) Monocytes # (Auto) 0.4 x10^3/uL (0.0-1.1) Eosinophils # (Auto) 0.2 x10^3/uL (0.0-0.7) Basophils # (Auto) 0.1 x10^3/uL (0.0-0.2) Sodium Level 145 mmol/L (136-145) Potassium Level 4.0 mmol/L (3.5-5.1) Chloride Level 105 mmol/L (98-107) Carbon Dioxide Level 32 mmol/L (21-32) Anion Gap 8 (6-14) Blood Urea Nitrogen 15 mg/dL (8-26) Creatinine 0.9 mg/dL (0.7-1.3) Estimated GFR (Cockcroft-Gault) 83.9 BUN/Creatinine Ratio 17 (6-20) Glucose Level 97 mg/dL (70-99) Calcium Level 9.3 mg/dL (8.5-10.1) Total Bilirubin 0.6 mg/dL (0.2-1.0) Aspartate Amino Transferase (AST) 25 U/L (15-37) Alanine Aminotransferase (ALT) 28 U/L (16-63) Alkaline Phosphatase 96 U/L (46-116) Total Protein 7.3 g/dL (6.4-8.2) Albumin 3.6 g/dL (3.4-5.0) Albumin/Globulin Ratio 1.0 (1.0-1.7) Current Medications: Meds: Current Medications Acetaminophen (Tylenol) 650 mg PRN Q6HRS PRN PO PAIN / TEMP; Start 11/16/18 at 20:15 Non-Formulary Medication (Clozapine ) 75 mg QHS PO ; Start 11/16/18 at 21:00; Stop 11/16/18 at 21:01; Status DC Paroxetine HCl (Paxil) 20 mg DAILY PO Last administered on 11/20/18at 07:51; Start 11/17/18 at 09:00 Trazodone HCl (Desyrel) 50 mg PRN QHS PRN PO INSOMNIA; Start 11/16/18 at 21:00 Atorvastatin Calcium (Lipitor) 20 mg QHS PO Last administered on 11/20/18at 19: 58; Start 11/16/18 at 21:00 Vitamin D (Vitamin D3) 50,000 unit WEEKLY PO ; Start 11/23/18 at 09:00 Lisinopril (Prinivil) 10 mg DAILY PO Last administered on 11/20/18at 07:51; Start 11/17/18 at 09:00 Metoprolol Succinate (Toprol Xl) 25 mg DAILY PO Last administered on 11/20/18 07:51; Start 11/17/18 at 09:00 Tamsulosin HCl (Flomax) 0.4 mg DAILY PO Last administered on 11/17/18 08:11; Start 11/17/18 at 09:00; Stop 11/17/18 at 17:42; Status DC Acetaminophen (Tylenol) 650 mg PRN Q6HRS PRN PO PAIN / TEMP; Start 11/16/18 at 21:15; Status Cancel Aspirin (Children'S Aspirin) 81 mg DAILYWBKFT PO Last administered on 07:52; Start 11/17/18 at 08:00 Docusate Sodium (Colace) 100 mg BID PO Last administered on 11/20/18 19:58; Start 11/16/18 at 21:15 Lactobacillus Rhamnosus (Culturelle) 1 cap BID PO Last administered on 19:57; Start 11/16/18 at 21:30 Latanoprost (Xalatan) 1 drop QHS OS Last administered on 11/20/18 20:00; Start 11/16/18 at 21:30 Levetiracetam (Keppra) 500 mg BID PO Last administered on 11/20/18 19:58; Start 11/16/18 at 21:30 Levofloxacin (Levaquin) 750 mg DAILY06 PO Last administered on 11/20/18 04:47 ; Start 11/17/18 at 06:00 Al Hydroxide/Mg Hydroxide (Mylanta Plus Xs) 15 ml PRN AFTMEALHC PRN PO DYSPEPSIA; Start 11/16/18 at 21:15 Magnesium Hydroxide (Milk Of Magnesia) 2,400 mg PRN QHS PRN PO CONSTIPATION; Start 11/16/18 at 21:15 Pantoprazole Sodium (Protonix) 40 mg DAILY06 PO Last administered on 11/20/18 04:47; Start 11/17/18 at 06:00 Polyethylene Glycol (miraLAX) 17 gm DAILY PO Last administered on 11/20/18 07: 50; Start 11/17/18 at 09:00 Sennosides (Senna) 8.6 mg DAILY PO Last administered on 11/20/18 07:52; Start 11/17/18 at 09:00 Sucralfate (Carafate) 1 gm QIDACHS PO Last administered on 11/20/18 19:58; Start 11/16/18 at 21:30 Timolol Maleate (Timoptic 0.5% Ophth) 1 drop BID OU Last administered on 20:00; Start 11/16/18 at 21:30 Chlorpromazine HCl (Thorazine) 25 mg TIDWMEALS PO Last administered on 17:34; Start 11/17/18 at 08:00 Chlorpromazine HCl (Thorazine) 100 mg HS PO Last administered on 11/20/18 20: 00; Start 11/16/18 at 21:30 Olanzapine (ZyPREXA) 5 mg BID PO Last administered on 11/20/18 19:58; Start at 21:30 Clozapine (Clozaril) 75 mg HS PO Last administered on 11/19/18 20:34; Start at 21:00; Stop 11/20/18 at 18:35; Status DC Lorazepam (Ativan) 0.25 mg PRN Q2HR PRN PO ANXIETY / AGITATION Last administered on 11/18/18 08:00; Start 11/17/18 at 13:00 Tamsulosin HCl (Flomax) 0.8 mg DAILY PO Last administered on 11/20/18 07:51; Start 11/18/18 at 09:00 Clozapine (Clozaril) 100 mg HS PO Last administered on 11/20/18 20:00; Start 11/20/18 at 21:00 Active Scripts Active Levaquin (Levofloxacin) 750 Mg Tablet 1 Tab PO DAILY 7 Days Reported Culturelle (Lactobacillus Rhamnosus Gg) 1 Each Capsule 1 Each PO BID Protonix (Pantoprazole Sodium) 40 Mg Tablet.dr 40 Mg PO DAILY06 Analgesic [place] (Methyl Salicylate/Menthol) 28 Gm Oint...g. 1 Jose Elias TP PRN QID PRN D3-50 (Cholecalciferol (Vitamin D3)) 50,000 Unit Capsule 50,000 Unit PO WEEKLY Milk Of Magnesia (Magnesium Hydroxide) 2,400 Mg/10 Ml Oral.susp 2,400 Mg PO QHS PRN Maalox Advanced Suspension (Mag Hydrox/Aluminum Hyd/Simeth) 355 Ml Oral.susp 15 Ml PO PRN AFTMEAL PRN Ativan (Lorazepam) 1 Mg Tablet 0.5 Mg PO Q2HR PRN MDD 2mg/24 hours Acetaminophen 500 Mg Tablet 650 Mg PO Q6HRS PRN Clozapine 100 Mg Tablet 75 Mg PO QHS Trazodone Hcl 50 Mg Tablet 50 Mg PO PRN QHS PRN Timoptic (Timolol Maleate) 10 Ml Drops 1 Drop EACHEYE BID Tamsulosin Hcl 0.4 Mg Cap.er.24h 0.4 Mg PO DAILY Carafate (Sucralfate) 1 Gm Tablet 1 Gm PO QIDACHS Senna (Sennosides) 8.6 Mg Tablet 8.6 Mg PO DAILY Miralax (Polyethylene Glycol 3350) 17 Gm Powd.pack 1 Packet PO DAILY Paxil (Paroxetine Hcl) 20 Mg Tablet 20 Mg PO DAILY Olanzapine 5 Mg Tablet 5 Mg PO BID Toprol Xl (Metoprolol Succinate) 25 Mg Tab.er.24h 25 Mg PO DAILY Lisinopril 10 Mg Tablet 10 Mg PO DAILY Keppra (Levetiracetam) 500 Mg Tablet 500 Mg PO BID Latanoprost 2.5 Ml Drops 1 Drop OS QHS Docusate Sodium 100 Mg Capsule 100 Mg PO BID Chlorpromazine Hcl 100 Mg Tablet 100 Mg PO HS Chlorpromazine Hcl 25 Mg Tablet 25 Mg PO TIDWMEALS Lipitor (Atorvastatin Calcium) 20 Mg Tablet 20 Mg PO QHS Aspirin 81 Mg Tab.chew 81 Mg PO DAILY I have reviewed the current psychotropics carefully including drug interactions. Risk benefit ratio favors no change other than as noted in my dictated progress note. Diagnosis: Problems: (1) UTI (urinary tract infection) due to urinary indwelling catheter (2) Anxiety disorder (3) Bipolar affective disorder, mixed (4) Major depressive disorder, recurrent episode (5) Mild cognitive impairment ANASTACIO REED MD Nov 20, 2018 22:11
[2018-11-21] MEDS: levoFLOXacin 750 MG TABLET PO SCH (05:27)
[2018-11-21] MEDS: PANTOPRAZOLE 40 MG TABLET. PO SCH (05:28)
[2018-11-21 05:37] VITALS: BP 112/73
[2018-11-21] MEDS: POLYETHYLENE GLYCOL 3350 17 GM PACKET. PO SCH (07:14)
[2018-11-21] MEDS: METOPROLOL SUCC 24HR ER 25 MG TAB.ER.24H. PO SCH (07:15)
[2018-11-21] MEDS: levETIRAcetam 500 MG TABLET PO SCH ×2 (07:15→21:13)
[2018-11-21] MEDS: DOCUSATE SODIUM 100 MG CAPSULE PO SCH ×2 (07:15→21:11)
[2018-11-21] MEDS: TAMSULOSIN 0.4 MG CAP.ER.24H. PO SCH (07:15)
[2018-11-21] MEDS: LACTOBACILLUS RHAMNOSUS GG 1 CAPSULE. PO SCH ×2 (07:15→21:11)
[2018-11-21] MEDS: SUCRALFATE 1 GM TABLET. PO SCH ×4 (07:15→21:00)
[2018-11-21] MEDS: LISINOPRIL 10 MG TABLET PO SCH (07:15)
[2018-11-21] MEDS: OLANZapine 5 MG TABLET PO SCH ×2 (07:15→21:13)
[2018-11-21] MEDS: chlorproMAZINE HCL 25 MG TABLET PO SCH ×4 (07:16→21:12)
[2018-11-21] MEDS: ASPIRIN 81 MG TAB.CHEW PO SCH (07:16)
[2018-11-21] MEDS: SENNOSIDES 8.6 MG TABLET PO SCH (07:16)
[2018-11-21] MEDS: PARoxetine 20 MG TABLET PO SCH (07:16)
[2018-11-21] MEDS: TIMOLOL 0.5% OPHTH SOLUTION 5ML BOTTLE. OU SCH ×2 (07:17→21:00)
[2018-11-21 16:19] VITALS: BP 112/73
[2018-11-21] MEDS: LATANOPROST 0.005% OPHTH SOLUTION 2.5ML BOTTLE. OS SCH (21:00)
[2018-11-21] MEDS: cloZAPine 100 MG TABLET PO SCH (21:13)
[2018-11-21] MEDS: ATORVASTATIN CALCIUM 20 MG TABLET PO SCH (21:13)
--- NOTE | 2018-11-21 21:15 | PN ---
DATE: 11/20/2018 PSYCHIATRIC PROGRESS NOTE This late entry 11/20/2018 covers elements not covered in my initial note. SUBJECTIVE: I met with the patient in the evening. The patient has been doing somewhat better. He is slightly withdrawn, but somatically less preoccupied, ambulating with a walker. Complains of some swallowing problems, will defer to Dr. Robertson. Absolute neutrophil count is unremarkable and we will increase the Clozaril from 75 to 100 mg at bedtime. REVIEW OF SYSTEMS: Ambulation impaired with walker. Some shortness of breath. No CV, , GI, eye system symptoms on review. MENTAL STATUS EXAM: The patient is oriented to himself and situation. Speech has some latency, coherent, abstraction fair, computation impaired, language function intact, attention span short. Mood and affect somewhat withdrawn. LABORATORY DATA: Reviewed. No suicidal or homicidal ideation. IMPRESSION: Unchanged from initial note. PLAN: Increase the Clozaril as above. Continue rest unchanged. MAN Villa REED MD DR: CRYSTAL/nicole JOB#: [id number] / [id number]
--- NOTE | 2018-11-21 22:22 | PDOC ---
Exam Note: Shahram Note: Please also refer to the separate dictated note~for this date of service dictated separately.~Patient seen individually. Discussed the patient with Nursing staff reviewed the chart.~Reviewed interim history and current functioning. Reviewed vital signs,~Labs/ Radiology~and current medications noted below. Continue current treatment with the changes noted in the dictated addendum note Assessment: Vital Signs: Vital Signs Date Time Temp Pulse Resp B/P (MAP) Pulse Ox O2 Delivery O2 Flow Rate FiO2 11/21/18 16:19 97.6 67 18 112/73 (86) 98 11/21/18 05:37 Room Air I&O Intake and Output 11/21/18 06:59 Intake Total 960 ml Output Total 2600 ml Balance -1640 ml Intake Oral 960 ml Output Urine Total 2600 ml Current Medications: Meds: Current Medications Acetaminophen (Tylenol) 650 mg PRN Q6HRS PRN PO PAIN / TEMP; Start 11/16/18 at 20:15 Non-Formulary Medication (Clozapine ) 75 mg QHS PO ; Start 11/16/18 at 21:00; Stop 11/16/18 at 21:01; Status DC Paroxetine HCl (Paxil) 20 mg DAILY PO Last administered on 11/21/18at 07:16; Start 11/17/18 at 09:00 Trazodone HCl (Desyrel) 50 mg PRN QHS PRN PO INSOMNIA; Start 11/16/18 at 21:00 Atorvastatin Calcium (Lipitor) 20 mg QHS PO Last administered on 11/21/18at 21: 13; Start 11/16/18 at 21:00 Vitamin D (Vitamin D3) 50,000 unit WEEKLY PO ; Start 11/23/18 at 09:00 Lisinopril (Prinivil) 10 mg DAILY PO Last administered on 11/21/18at 07:15; Start 11/17/18 at 09:00 Metoprolol Succinate (Toprol Xl) 25 mg DAILY PO Last administered on 11/21/18at 07:15; Start 11/17/18 at 09:00 Tamsulosin HCl (Flomax) 0.4 mg DAILY PO Last administered on 11/17/18at 08:11; Start 11/17/18 at 09:00; Stop 11/17/18 at 17:42; Status DC Acetaminophen (Tylenol) 650 mg PRN Q6HRS PRN PO PAIN / TEMP; Start 11/16/18 at 21:15; Status Cancel Aspirin (Children'S Aspirin) 81 mg DAILYWBKFT PO Last administered on 07:16; Start 11/17/18 at 08:00 Docusate Sodium (Colace) 100 mg BID PO Last administered on 11/21/18 21:11; Start 11/16/18 at 21:15 Lactobacillus Rhamnosus (Culturelle) 1 cap BID PO Last administered on 21:11; Start 11/16/18 at 21:30 Latanoprost (Xalatan) 1 drop QHS OS Last administered on 11/21/18 21:00; Start 11/16/18 at 21:30 Levetiracetam (Keppra) 500 mg BID PO Last administered on 11/21/18 21:13; Start 11/16/18 at 21:30 Levofloxacin (Levaquin) 750 mg DAILY06 PO Last administered on 11/21/18 05:27 ; Start 11/17/18 at 06:00 Al Hydroxide/Mg Hydroxide (Mylanta Plus Xs) 15 ml PRN AFTMEALHC PRN PO DYSPEPSIA; Start 11/16/18 at 21:15 Magnesium Hydroxide (Milk Of Magnesia) 2,400 mg PRN QHS PRN PO CONSTIPATION; Start 11/16/18 at 21:15 Pantoprazole Sodium (Protonix) 40 mg DAILY06 PO Last administered on 11/21/18 05:28; Start 11/17/18 at 06:00 Polyethylene Glycol (miraLAX) 17 gm DAILY PO Last administered on 11/21/18 07: 14; Start 11/17/18 at 09:00 Sennosides (Senna) 8.6 mg DAILY PO Last administered on 11/21/18 07:16; Start 11/17/18 at 09:00 Sucralfate (Carafate) 1 gm QIDACHS PO Last administered on 11/21/18 21:00; Start 11/16/18 at 21:30 Timolol Maleate (Timoptic 0.5% [facility]) 1 drop BID OU Last administered on 21:00; Start 11/16/18 at 21:30 Chlorpromazine HCl (Thorazine) 25 mg TIDWMEALS PO Last administered on 16:27; Start 11/17/18 at 08:00 Chlorpromazine HCl (Thorazine) 100 mg HS PO Last administered on 11/21/18 21: 12; Start 11/16/18 at 21:30 Olanzapine (ZyPREXA) 5 mg BID PO Last administered on 11/21/18 21:13; Start at 21:30 Clozapine (Clozaril) 75 mg HS PO Last administered on 11/19/18 20:34; Start at 21:00; Stop 11/20/18 at 18:35; Status DC Lorazepam (Ativan) 0.25 mg PRN Q2HR PRN PO ANXIETY / AGITATION Last administered on 11/18/18 08:00; Start 11/17/18 at 13:00 Tamsulosin HCl (Flomax) 0.8 mg DAILY PO Last administered on 11/21/18 07:15; Start 11/18/18 at 09:00 Clozapine (Clozaril) 100 mg HS PO Last administered on 11/21/18 21:13; Start 11/20/18 at 21:00 Active Scripts Active Levaquin (Levofloxacin) 750 Mg Tablet 1 Tab PO DAILY 7 Days Reported Culturelle (Lactobacillus Rhamnosus Gg) 1 Each Capsule 1 Each PO BID Protonix (Pantoprazole Sodium) 40 Mg Tablet.dr 40 Mg PO DAILY06 Analgesic [place] (Methyl Salicylate/Menthol) 28 Gm Oint...g. 1 Jose Elias TP PRN QID PRN D3-50 (Cholecalciferol (Vitamin D3)) 50,000 Unit Capsule 50,000 Unit PO WEEKLY Milk Of Magnesia (Magnesium Hydroxide) 2,400 Mg/10 Ml Oral.susp 2,400 Mg PO QHS PRN Maalox Advanced Suspension (Mag Hydrox/Aluminum Hyd/Simeth) 355 Ml Oral.susp 15 Ml PO PRN AFTMEAL PRN Ativan (Lorazepam) 1 Mg Tablet 0.5 Mg PO Q2HR PRN MDD 2mg/24 hours Acetaminophen 500 Mg Tablet 650 Mg PO Q6HRS PRN Clozapine 100 Mg Tablet 75 Mg PO QHS Trazodone Hcl 50 Mg Tablet 50 Mg PO PRN QHS PRN Timoptic (Timolol Maleate) 10 Ml Drops 1 Drop EACHEYE BID Tamsulosin Hcl 0.4 Mg Cap.er.24h 0.4 Mg PO DAILY Carafate (Sucralfate) 1 Gm Tablet 1 Gm PO QIDACHS Senna (Sennosides) 8.6 Mg Tablet 8.6 Mg PO DAILY Miralax (Polyethylene Glycol 3350) 17 Gm Powd.pack 1 Packet PO DAILY Paxil (Paroxetine Hcl) 20 Mg Tablet 20 Mg PO DAILY Olanzapine 5 Mg Tablet 5 Mg PO BID Toprol Xl (Metoprolol Succinate) 25 Mg Tab.er.24h 25 Mg PO DAILY Lisinopril 10 Mg Tablet 10 Mg PO DAILY Keppra (Levetiracetam) 500 Mg Tablet 500 Mg PO BID Latanoprost 2.5 Ml Drops 1 Drop OS QHS Docusate Sodium 100 Mg Capsule 100 Mg PO BID Chlorpromazine Hcl 100 Mg Tablet 100 Mg PO HS Chlorpromazine Hcl 25 Mg Tablet 25 Mg PO TIDWMEALS Lipitor (Atorvastatin Calcium) 20 Mg Tablet 20 Mg PO QHS Aspirin 81 Mg Tab.chew 81 Mg PO DAILY I have reviewed the current psychotropics carefully including drug interactions. Risk benefit ratio favors no change other than as noted in my dictated progress note. Diagnosis: Problems: (1) UTI (urinary tract infection) due to urinary indwelling catheter (2) Anxiety disorder (3) Bipolar affective disorder, mixed (4) Major depressive disorder, recurrent episode (5) Mild cognitive impairment ANASTACIO REED MD Nov 21, 2018 22:22
[2018-11-22] MEDS: PANTOPRAZOLE 40 MG TABLET. PO SCH (05:25)
[2018-11-22] MEDS: levETIRAcetam 500 MG TABLET PO SCH ×2 (05:25→20:51)
[2018-11-22] MEDS: levoFLOXacin 750 MG TABLET PO SCH (05:27)
[2018-11-22 06:01] VITALS: BP 149/92
[2018-11-22] MEDS: SUCRALFATE 1 GM TABLET. PO SCH ×5 (07:30→20:56)
[2018-11-22] MEDS: DOCUSATE SODIUM 100 MG CAPSULE PO SCH ×2 (07:46→20:51)
[2018-11-22] MEDS: LISINOPRIL 10 MG TABLET PO SCH (07:47)
[2018-11-22] MEDS: TAMSULOSIN 0.4 MG CAP.ER.24H. PO SCH (07:47)
[2018-11-22] MEDS: OLANZapine 5 MG TABLET PO SCH ×2 (07:47→20:51)
[2018-11-22] MEDS: LACTOBACILLUS RHAMNOSUS GG 1 CAPSULE. PO SCH ×2 (07:47→20:51)
[2018-11-22] MEDS: ASPIRIN 81 MG TAB.CHEW PO SCH (07:48)
[2018-11-22] MEDS: PARoxetine 20 MG TABLET PO SCH (07:48)
[2018-11-22] MEDS: POLYETHYLENE GLYCOL 3350 17 GM PACKET. PO SCH (07:48)
[2018-11-22] MEDS: SENNOSIDES 8.6 MG TABLET PO SCH (07:48)
[2018-11-22] MEDS: METOPROLOL SUCC 24HR ER 25 MG TAB.ER.24H. PO SCH (07:48)
[2018-11-22] MEDS: chlorproMAZINE HCL 25 MG TABLET PO SCH ×4 (07:50→20:54)
[2018-11-22] MEDS: LATANOPROST 0.005% OPHTH SOLUTION 2.5ML BOTTLE. OS SCH (07:51)
[2018-11-22] MEDS: TIMOLOL 0.5% OPHTH SOLUTION 5ML BOTTLE. OU SCH ×2 (11:35→20:53)
[2018-11-22 15:51] VITALS: BP 96/63
--- NOTE | 2018-11-22 20:43 | PN ---
DATE: 11/21/2018 PSYCHIATRIC PROGRESS NOTE This late entry 11/21/2018 covers elements not covered in my initial note. SUBJECTIVE: I met with the patient in the evening in his room at some length. The patient slept 8-1/4 hours previous night. He has been less anxious, less somatically preoccupied. He had a speech evaluation with the recommendation for possible esophageal dilatation to be repeated and follow up outpatient for this. He is quite obsessive about this. REVIEW OF SYSTEMS: Other than above, some shortness of breath. No CV, GI, system symptoms, but he does have a Key and has some dysphagia. MENTAL STATUS EXAM: Oriented to himself and situation. Speech is low in rate and rhythm, low in volume, often responses monosyllabic. Abstraction fair, computation impaired, language function intact. Mood and affect withdrawn. LABORATORY DATA: Reviewed. IMPRESSION: Unchanged from initial note. PLAN: No change from initial note. ANASTACIO REED MD DR: CRYSTAL/nicole JOB#: [id number] / [id number]
[2018-11-22] MEDS: cloZAPine 100 MG TABLET PO SCH (20:51)
[2018-11-22] MEDS: ATORVASTATIN CALCIUM 20 MG TABLET PO SCH (20:51)
--- NOTE | 2018-11-22 22:25 | PDOC ---
Exam Note: Shahram Note: Please also refer to the separate dictated note~for this date of service dictated separately.~Patient seen individually. Discussed the patient with Nursing staff reviewed the chart.~Reviewed interim history and current functioning. Reviewed vital signs,~Labs/ Radiology~and current medications noted below. Continue current treatment with the changes noted in the dictated addendum note Assessment: Vital Signs: Vital Signs Date Time Temp Pulse Resp B/P (MAP) Pulse Ox O2 Delivery O2 Flow Rate FiO2 11/22/18 15:51 97.6 84 18 96/63 (74) 98 11/21/18 05:37 Room Air I&O Intake and Output 11/22/18 06:59 Intake Total 840 ml Output Total 675 ml Balance 165 ml Intake Oral 840 ml Output Urine Total 675 ml Current Medications: Meds: Current Medications Acetaminophen (Tylenol) 650 mg PRN Q6HRS PRN PO PAIN / TEMP; Start 11/16/18 at 20:15 Non-Formulary Medication (Clozapine ) 75 mg QHS PO ; Start 11/16/18 at 21:00; Stop 11/16/18 at 21:01; Status DC Paroxetine HCl (Paxil) 20 mg DAILY PO Last administered on 11/22/18at 07:48; Start 11/17/18 at 09:00 Trazodone HCl (Desyrel) 50 mg PRN QHS PRN PO INSOMNIA; Start 11/16/18 at 21:00 Atorvastatin Calcium (Lipitor) 20 mg QHS PO Last administered on 11/22/18at 20: 51; Start 11/16/18 at 21:00 Vitamin D (Vitamin D3) 50,000 unit WEEKLY PO ; Start 11/23/18 at 09:00 Lisinopril (Prinivil) 10 mg DAILY PO Last administered on 11/22/18at 07:47; Start 11/17/18 at 09:00 Metoprolol Succinate (Toprol Xl) 25 mg DAILY PO Last administered on 11/22/18at 07:48; Start 11/17/18 at 09:00 Tamsulosin HCl (Flomax) 0.4 mg DAILY PO Last administered on 11/17/18at 08:11; Start 11/17/18 at 09:00; Stop 11/17/18 at 17:42; Status DC Acetaminophen (Tylenol) 650 mg PRN Q6HRS PRN PO PAIN / TEMP; Start 11/16/18 at 21:15; Status Cancel Aspirin (Children'S Aspirin) 81 mg DAILYWBKFT PO Last administered on 07:48; Start 11/17/18 at 08:00 Docusate Sodium (Colace) 100 mg BID PO Last administered on 11/22/18 20:51; Start 11/16/18 at 21:15 Lactobacillus Rhamnosus (Culturelle) 1 cap BID PO Last administered on 20:51; Start 11/16/18 at 21:30 Latanoprost (Xalatan) 1 drop QHS OS Last administered on 11/22/18 07:51; Start 11/16/18 at 21:30 Levetiracetam (Keppra) 500 mg BID PO Last administered on 11/22/18 20:51; Start 11/16/18 at 21:30 Levofloxacin (Levaquin) 750 mg DAILY06 PO Last administered on 11/22/18 05:27 ; Start 11/17/18 at 06:00 Al Hydroxide/Mg Hydroxide (Mylanta Plus Xs) 15 ml PRN AFTMEALHC PRN PO DYSPEPSIA; Start 11/16/18 at 21:15 Magnesium Hydroxide (Milk Of Magnesia) 2,400 mg PRN QHS PRN PO CONSTIPATION; Start 11/16/18 at 21:15 Pantoprazole Sodium (Protonix) 40 mg DAILY06 PO Last administered on 11/22/18 05:25; Start 11/17/18 at 06:00 Polyethylene Glycol (miraLAX) 17 gm DAILY PO Last administered on 11/22/18 07: 48; Start 11/17/18 at 09:00 Sennosides (Senna) 8.6 mg DAILY PO Last administered on 11/22/18 07:48; Start 11/17/18 at 09:00 Sucralfate (Carafate) 1 gm QIDACHS PO Last administered on 11/22/18 20:56; Start 11/16/18 at 21:30 Timolol Maleate (Timoptic 0.5% [place]ph) 1 drop BID OU Last administered on 20:53; Start 11/16/18 at 21:30 Chlorpromazine HCl (Thorazine) 25 mg TIDWMEALS PO Last administered on 17:10; Start 11/17/18 at 08:00 Chlorpromazine HCl (Thorazine) 100 mg HS PO Last administered on 11/22/18 20: 54; Start 11/16/18 at 21:30 Olanzapine (ZyPREXA) 5 mg BID PO Last administered on 11/22/18 20:51; Start at 21:30 Clozapine (Clozaril) 75 mg HS PO Last administered on 11/19/18 20:34; Start at 21:00; Stop 11/20/18 at 18:35; Status DC Lorazepam (Ativan) 0.25 mg PRN Q2HR PRN PO ANXIETY / AGITATION Last administered on 11/18/18 08:00; Start 11/17/18 at 13:00 Tamsulosin HCl (Flomax) 0.8 mg DAILY PO Last administered on 11/22/18 07:47; Start 11/18/18 at 09:00 Clozapine (Clozaril) 100 mg HS PO Last administered on 11/22/18 20:51; Start 11/20/18 at 21:00 Active Scripts Active Levaquin (Levofloxacin) 750 Mg Tablet 1 Tab PO DAILY 7 Days Reported Culturelle (Lactobacillus Rhamnosus Gg) 1 Each Capsule 1 Each PO BID Protonix (Pantoprazole Sodium) 40 Mg Tablet.dr 40 Mg PO DAILY06 Analgesic [place] (Methyl Salicylate/Menthol) 28 Gm Oint...g. 1 Jose Elias TP PRN QID PRN D3-50 (Cholecalciferol (Vitamin D3)) 50,000 Unit Capsule 50,000 Unit PO WEEKLY Milk Of Magnesia (Magnesium Hydroxide) 2,400 Mg/10 Ml Oral.susp 2,400 Mg PO QHS PRN Maalox Advanced Suspension (Mag Hydrox/Aluminum Hyd/Simeth) 355 Ml Oral.susp 15 Ml PO PRN AFTMEAL PRN Ativan (Lorazepam) 1 Mg Tablet 0.5 Mg PO Q2HR PRN MDD 2mg/24 hours Acetaminophen 500 Mg Tablet 650 Mg PO Q6HRS PRN Clozapine 100 Mg Tablet 75 Mg PO QHS Trazodone Hcl 50 Mg Tablet 50 Mg PO PRN QHS PRN Timoptic (Timolol Maleate) 10 Ml Drops 1 Drop EACHEYE BID Tamsulosin Hcl 0.4 Mg Cap.er.24h 0.4 Mg PO DAILY Carafate (Sucralfate) 1 Gm Tablet 1 Gm PO QIDACHS Senna (Sennosides) 8.6 Mg Tablet 8.6 Mg PO DAILY Miralax (Polyethylene Glycol 3350) 17 Gm Powd.pack 1 Packet PO DAILY Paxil (Paroxetine Hcl) 20 Mg Tablet 20 Mg PO DAILY Olanzapine 5 Mg Tablet 5 Mg PO BID Toprol Xl (Metoprolol Succinate) 25 Mg Tab.er.24h 25 Mg PO DAILY Lisinopril 10 Mg Tablet 10 Mg PO DAILY Keppra (Levetiracetam) 500 Mg Tablet 500 Mg PO BID Latanoprost 2.5 Ml Drops 1 Drop OS QHS Docusate Sodium 100 Mg Capsule 100 Mg PO BID Chlorpromazine Hcl 100 Mg Tablet 100 Mg PO HS Chlorpromazine Hcl 25 Mg Tablet 25 Mg PO TIDWMEALS Lipitor (Atorvastatin Calcium) 20 Mg Tablet 20 Mg PO QHS Aspirin 81 Mg Tab.chew 81 Mg PO DAILY I have reviewed the current psychotropics carefully including drug interactions. Risk benefit ratio favors no change other than as noted in my dictated progress note. Diagnosis: Problems: (1) UTI (urinary tract infection) due to urinary indwelling catheter (2) Anxiety disorder (3) Bipolar affective disorder, mixed (4) Major depressive disorder, recurrent episode (5) Mild cognitive impairment ANASTACIO REED MD Nov 22, 2018 22:25
[2018-11-23 05:45] VITALS: BP 125/79
[2018-11-23] MEDS: levoFLOXacin 750 MG TABLET PO SCH (06:14)
[2018-11-23] MEDS: PANTOPRAZOLE 40 MG TABLET. PO SCH (06:14)
[2018-11-23] MEDS: POLYETHYLENE GLYCOL 3350 17 GM PACKET. PO SCH (07:21)
[2018-11-23] MEDS: OLANZapine 5 MG TABLET PO SCH ×2 (07:21→20:45)
[2018-11-23] MEDS: PARoxetine 20 MG TABLET PO SCH (07:21)
[2018-11-23] MEDS: SENNOSIDES 8.6 MG TABLET PO SCH (07:21)
[2018-11-23] MEDS: levETIRAcetam 500 MG TABLET PO SCH ×2 (07:21→20:45)
[2018-11-23] MEDS: TAMSULOSIN 0.4 MG CAP.ER.24H. PO SCH (07:21)
[2018-11-23] MEDS: METOPROLOL SUCC 24HR ER 25 MG TAB.ER.24H. PO SCH (07:22)
[2018-11-23] MEDS: ASPIRIN 81 MG TAB.CHEW PO SCH (07:22)
[2018-11-23] MEDS: LISINOPRIL 10 MG TABLET PO SCH (07:22)
[2018-11-23] MEDS: DOCUSATE SODIUM 100 MG CAPSULE PO SCH ×2 (07:22→20:45)
[2018-11-23] MEDS: LACTOBACILLUS RHAMNOSUS GG 1 CAPSULE. PO SCH ×2 (07:22→20:45)
[2018-11-23] MEDS: SUCRALFATE 1 GM TABLET. PO SCH ×4 (07:22→20:43)
[2018-11-23] MEDS: chlorproMAZINE HCL 25 MG TABLET PO SCH ×4 (07:23→20:43)
[2018-11-23] MEDS: TIMOLOL 0.5% OPHTH SOLUTION 5ML BOTTLE. OU SCH ×2 (07:25→20:45)
[2018-11-23] MEDS ORDERED: CHOLECALCIFEROL (VITAMIN D3) 50,000 UNIT CAPSULE PO SCH (09:00)
[2018-11-23 16:14] VITALS: BP 118/80
[2018-11-23] MEDS: ATORVASTATIN CALCIUM 20 MG TABLET PO SCH (20:44)
[2018-11-23] MEDS: LATANOPROST 0.005% OPHTH SOLUTION 2.5ML BOTTLE. OS SCH (20:45)
[2018-11-23] MEDS: cloZAPine 100 MG TABLET PO SCH (20:45)
--- NOTE | 2018-11-23 22:23 | PDOC ---
Exam Note: Shahram Note: Please also refer to the separate dictated note~for this date of service dictated separately.~Patient seen individually. Discussed the patient with Nursing staff reviewed the chart.~Reviewed interim history and current functioning. Reviewed vital signs,~Labs/ Radiology~and current medications noted below. Continue current treatment with the changes noted in the dictated addendum note Assessment: Vital Signs: Vital Signs Date Time Temp Pulse Resp B/P (MAP) Pulse Ox O2 Delivery O2 Flow Rate FiO2 11/23/18 16:14 98.0 81 18 118/80 (93) 98 Room Air I&O Intake and Output 11/23/18 07:00 Intake Total 600 ml Output Total 1925 ml Balance -1325 ml Intake Oral 600 ml Output Urine Total 1925 ml Current Medications: Meds: Current Medications Acetaminophen (Tylenol) 650 mg PRN Q6HRS PRN PO PAIN / TEMP; Start 11/16/18 at 20:15 Non-Formulary Medication (Clozapine ) 75 mg QHS PO ; Start 11/16/18 at 21:00; Stop 11/16/18 at 21:01; Status DC Paroxetine HCl (Paxil) 20 mg DAILY PO Last administered on 11/23/18at 07:21; Start 11/17/18 at 09:00 Trazodone HCl (Desyrel) 50 mg PRN QHS PRN PO INSOMNIA; Start 11/16/18 at 21:00 Atorvastatin Calcium (Lipitor) 20 mg QHS PO Last administered on 11/23/18at 20: 44; Start 11/16/18 at 21:00 Vitamin D (Vitamin D3) 50,000 unit WEEKLY PO Last administered on 11/23/18at 07: 26; Start 11/23/18 at 09:00 Lisinopril (Prinivil) 10 mg DAILY PO Last administered on 11/23/18at 07:22; Start 11/17/18 at 09:00 Metoprolol Succinate (Toprol Xl) 25 mg DAILY PO Last administered on 11/23/18at 07:22; Start 11/17/18 at 09:00 Tamsulosin HCl (Flomax) 0.4 mg DAILY PO Last administered on 11/17/18at 08:11; Start 11/17/18 at 09:00; Stop 11/17/18 at 17:42; Status DC Acetaminophen (Tylenol) 650 mg PRN Q6HRS PRN PO PAIN / TEMP; Start 11/16/18 at 21:15; Status Cancel Aspirin (Children'S Aspirin) 81 mg DAILYWBKFT PO Last administered on 07:22; Start 11/17/18 at 08:00 Docusate Sodium (Colace) 100 mg BID PO Last administered on 11/23/18 20:45; Start 11/16/18 at 21:15 Lactobacillus Rhamnosus (Culturelle) 1 cap BID PO Last administered on 20:45; Start 11/16/18 at 21:30 Latanoprost (Xalatan) 1 drop QHS OS Last administered on 11/23/18 20:45; Start 11/16/18 at 21:30 Levetiracetam (Keppra) 500 mg BID PO Last administered on 11/23/18 20:45; Start 11/16/18 at 21:30 Levofloxacin (Levaquin) 750 mg DAILY06 PO Last administered on 11/23/18 06:14 ; Start 11/17/18 at 06:00 Al Hydroxide/Mg Hydroxide (Mylanta Plus Xs) 15 ml PRN AFTMEALHC PRN PO DYSPEPSIA; Start 11/16/18 at 21:15 Magnesium Hydroxide (Milk Of Magnesia) 2,400 mg PRN QHS PRN PO CONSTIPATION; Start 11/16/18 at 21:15 Pantoprazole Sodium (Protonix) 40 mg DAILY06 PO Last administered on 11/23/18 06:14; Start 11/17/18 at 06:00 Polyethylene Glycol (miraLAX) 17 gm DAILY PO Last administered on 11/23/18 07: 21; Start 11/17/18 at 09:00 Sennosides (Senna) 8.6 mg DAILY PO Last administered on 11/23/18 07:21; Start 11/17/18 at 09:00 Sucralfate (Carafate) 1 gm QIDACHS PO Last administered on 11/23/18 20:43; Start 11/16/18 at 21:30 Timolol Maleate (Timoptic 0.5% [facility]) 1 drop BID OU Last administered on 20:45; Start 11/16/18 at 21:30 Chlorpromazine HCl (Thorazine) 25 mg TIDWMEALS PO Last administered on 16:38; Start 11/17/18 at 08:00 Chlorpromazine HCl (Thorazine) 100 mg HS PO Last administered on 11/23/18 20: 43; Start 11/16/18 at 21:30 Olanzapine (ZyPREXA) 5 mg BID PO Last administered on 11/23/18 20:45; Start at 21:30 Clozapine (Clozaril) 75 mg HS PO Last administered on 11/19/18 20:34; Start at 21:00; Stop 11/20/18 at 18:35; Status DC Lorazepam (Ativan) 0.25 mg PRN Q2HR PRN PO ANXIETY / AGITATION Last administered on 11/18/18 08:00; Start 11/17/18 at 13:00 Tamsulosin HCl (Flomax) 0.8 mg DAILY PO Last administered on 11/23/18 07:21; Start 11/18/18 at 09:00 Clozapine (Clozaril) 100 mg HS PO Last administered on 11/23/18 20:45; Start 11/20/18 at 21:00 Active Scripts Active Levaquin (Levofloxacin) 750 Mg Tablet 1 Tab PO DAILY 7 Days Reported Culturelle (Lactobacillus Rhamnosus Gg) 1 Each Capsule 1 Each PO BID Protonix (Pantoprazole Sodium) 40 Mg Tablet.dr 40 Mg PO DAILY06 Analgesic [place] (Methyl Salicylate/Menthol) 28 Gm Oint...g. 1 Jose Elias TP PRN QID PRN D3-50 (Cholecalciferol (Vitamin D3)) 50,000 Unit Capsule 50,000 Unit PO WEEKLY Milk Of Magnesia (Magnesium Hydroxide) 2,400 Mg/10 Ml Oral.susp 2,400 Mg PO QHS PRN Maalox Advanced Suspension (Mag Hydrox/Aluminum Hyd/Simeth) 355 Ml Oral.susp 15 Ml PO PRN AFTMEAL PRN Ativan (Lorazepam) 1 Mg Tablet 0.5 Mg PO Q2HR PRN MDD 2mg/24 hours Acetaminophen 500 Mg Tablet 650 Mg PO Q6HRS PRN Clozapine 100 Mg Tablet 75 Mg PO QHS Trazodone Hcl 50 Mg Tablet 50 Mg PO PRN QHS PRN Timoptic (Timolol Maleate) 10 Ml Drops 1 Drop EACHEYE BID Tamsulosin Hcl 0.4 Mg Cap.er.24h 0.4 Mg PO DAILY Carafate (Sucralfate) 1 Gm Tablet 1 Gm PO QIDACHS Senna (Sennosides) 8.6 Mg Tablet 8.6 Mg PO DAILY Miralax (Polyethylene Glycol 3350) 17 Gm Powd.pack 1 Packet PO DAILY Paxil (Paroxetine Hcl) 20 Mg Tablet 20 Mg PO DAILY Olanzapine 5 Mg Tablet 5 Mg PO BID Toprol Xl (Metoprolol Succinate) 25 Mg Tab.er.24h 25 Mg PO DAILY Lisinopril 10 Mg Tablet 10 Mg PO DAILY Keppra (Levetiracetam) 500 Mg Tablet 500 Mg PO BID Latanoprost 2.5 Ml Drops 1 Drop OS QHS Docusate Sodium 100 Mg Capsule 100 Mg PO BID Chlorpromazine Hcl 100 Mg Tablet 100 Mg PO HS Chlorpromazine Hcl 25 Mg Tablet 25 Mg PO TIDWMEALS Lipitor (Atorvastatin Calcium) 20 Mg Tablet 20 Mg PO QHS Aspirin 81 Mg Tab.chew 81 Mg PO DAILY I have reviewed the current psychotropics carefully including drug interactions. Risk benefit ratio favors no change other than as noted in my dictated progress note. Diagnosis: Problems: (1) UTI (urinary tract infection) due to urinary indwelling catheter (2) Anxiety disorder (3) Bipolar affective disorder, mixed (4) Major depressive disorder, recurrent episode (5) Mild cognitive impairment ANASTACIO REED MD Nov 23, 2018 22:23
[2018-11-24 05:56] VITALS: BP 128/83
[2018-11-24] MEDS: PANTOPRAZOLE 40 MG TABLET. PO SCH (06:00)
[2018-11-24] MEDS: levoFLOXacin 750 MG TABLET PO SCH (06:01)
[2018-11-24] MEDS: SUCRALFATE 1 GM TABLET. PO SCH ×4 (07:48→19:27)
[2018-11-24] MEDS: chlorproMAZINE HCL 25 MG TABLET PO SCH ×4 (07:48→19:28)
[2018-11-24] MEDS: ASPIRIN 81 MG TAB.CHEW PO SCH (07:48)
[2018-11-24] MEDS: LACTOBACILLUS RHAMNOSUS GG 1 CAPSULE. PO SCH ×2 (07:48→19:26)
[2018-11-24] MEDS: PARoxetine 20 MG TABLET PO SCH (07:48)
[2018-11-24] MEDS: TIMOLOL 0.5% OPHTH SOLUTION 5ML BOTTLE. OU SCH ×2 (07:48→19:30)
[2018-11-24] MEDS: POLYETHYLENE GLYCOL 3350 17 GM PACKET. PO SCH (07:48)
[2018-11-24] MEDS: TAMSULOSIN 0.4 MG CAP.ER.24H. PO SCH (07:48)
[2018-11-24] MEDS: DOCUSATE SODIUM 100 MG CAPSULE PO SCH ×2 (07:49→19:26)
[2018-11-24] MEDS: OLANZapine 5 MG TABLET PO SCH ×2 (07:49→19:26)
[2018-11-24] MEDS: LISINOPRIL 10 MG TABLET PO SCH (07:50)
[2018-11-24] MEDS: levETIRAcetam 500 MG TABLET PO SCH ×2 (07:50→19:26)
[2018-11-24] MEDS: SENNOSIDES 8.6 MG TABLET PO SCH (07:50)
[2018-11-24] MEDS: METOPROLOL SUCC 24HR ER 25 MG TAB.ER.24H. PO SCH (07:54)
[2018-11-24 15:45] VITALS: BP 93/61
[2018-11-24] MEDS: ATORVASTATIN CALCIUM 20 MG TABLET PO SCH (19:27)
[2018-11-24] MEDS: cloZAPine 100 MG TABLET PO SCH (19:27)
[2018-11-24] MEDS: LATANOPROST 0.005% OPHTH SOLUTION 2.5ML BOTTLE. OS SCH (19:28)
--- NOTE | 2018-11-24 20:45 | PN ---
DATE: 11/22/2018 PSYCHIATRIC PROGRESS NOTE This late entry 11/22/2018 covers elements not covered in my initial note. SUBJECTIVE: I met with the patient in the evening. The patient slept 7-3/4 hours previous night. He has been less demanding, slept in the morning, less anxious. REVIEW OF SYSTEMS: Shortness of breath, impaired ambulation, some GI symptoms with swallowing problems and he is due to have outpatient GI followup for possible esophageal dilatation. No CV, , pulmonary, eye system symptoms on review. MENTAL STATUS EXAM: Oriented to himself and situation. Speech moderate latency, often responses monosyllabic. Abstraction fair, computation impaired, language function intact, attention span short. Mood and affect somewhat withdrawn, anxious. LABORATORY DATA: Reviewed. IMPRESSION: Unchanged from initial note. PLAN: No change from initial note. MAN Villa REED MD DR: CRYSTAL/nicole JOB#: [id number] / [id number]
--- NOTE | 2018-11-24 20:47 | PN ---
DATE: 11/23/2018 PSYCHIATRIC PROGRESS NOTE This late entry 11/23/2018 covers elements not covered in my initial note. SUBJECTIVE: I met with the patient in the evening and staffed at a treatment team meeting with the entire team earlier in the day. The patient slept 7-1/2 hours, has been interactive with activity therapy, still has GI symptoms of some dysphagia and remains on O2 supplements, impaired ambulation. REVIEW OF SYSTEMS: No CV, pulmonary, eye system symptoms on review. He is completing his course of Levaquin for UTI. MENTAL STATUS EXAM: Oriented to himself and situation. Speech has some latency, often responses monosyllabic, coherent. Abstraction fair, computation impaired, language function intact, attention span short. Mood and affect somewhat withdrawn. LABORATORY DATA: Reviewed. IMPRESSION: Unchanged from initial note. PLAN: No change from initial note. MAN Villa REED MD DR: CRYSTAL/nicole JOB#: [id number] / [id number]
--- NOTE | 2018-11-24 21:45 | PDOC ---
Exam Note: Shahram Note: Please also refer to the separate dictated note~for this date of service dictated separately.~Patient seen individually. Discussed the patient with Nursing staff reviewed the chart.~Reviewed interim history and current functioning. Reviewed vital signs,~Labs/ Radiology~and current medications noted below. Continue current treatment with the changes noted in the dictated addendum note Assessment: Vital Signs: Vital Signs Date Time Temp Pulse Resp B/P (MAP) Pulse Ox O2 Delivery O2 Flow Rate FiO2 11/24/18 15:45 98.0 73 19 93/61 (72) 97 Room Air I&O Intake and Output 11/24/18 06:59 Intake Total 420 ml Output Total 600 ml Balance -180 ml Intake Oral 420 ml Output Urine Total 600 ml Current Medications: Meds: Current Medications Acetaminophen (Tylenol) 650 mg PRN Q6HRS PRN PO PAIN / TEMP; Start 11/16/18 at 20:15 Non-Formulary Medication (Clozapine ) 75 mg QHS PO ; Start 11/16/18 at 21:00; Stop 11/16/18 at 21:01; Status DC Paroxetine HCl (Paxil) 20 mg DAILY PO Last administered on 11/24/18at 07:48; Start 11/17/18 at 09:00 Trazodone HCl (Desyrel) 50 mg PRN QHS PRN PO INSOMNIA; Start 11/16/18 at 21:00 Atorvastatin Calcium (Lipitor) 20 mg QHS PO Last administered on 11/24/18at 19:27 ; Start 11/16/18 at 21:00 Vitamin D (Vitamin D3) 50,000 unit WEEKLY PO Last administered on 11/23/18at 07: 26; Start 11/23/18 at 09:00 Lisinopril (Prinivil) 10 mg DAILY PO Last administered on 11/24/18at 07:50; Start 11/17/18 at 09:00; Stop 11/24/18 at 15:53; Status DC Metoprolol Succinate (Toprol Xl) 25 mg DAILY PO Last administered on 11/24/18at 07:54; Start 11/17/18 at 09:00; Stop 11/24/18 at 15:53; Status DC Tamsulosin HCl (Flomax) 0.4 mg DAILY PO Last administered on 11/17/18at 08:11; Start 11/17/18 at 09:00; Stop 11/17/18 at 17:42; Status DC Acetaminophen (Tylenol) 650 mg PRN Q6HRS PRN PO PAIN / TEMP; Start 11/16/18 at 21:15; Status Cancel Aspirin (Children'S Aspirin) 81 mg DAILYWBKFT PO Last administered on 11/24/18 07:48; Start 11/17/18 at 08:00 Docusate Sodium (Colace) 100 mg BID PO Last administered on 11/24/18 19:26; Start 11/16/18 at 21:15 Lactobacillus Rhamnosus (Culturelle) 1 cap BID PO Last administered on 19:26; Start 11/16/18 at 21:30 Latanoprost (Xalatan) 1 drop QHS OS Last administered on 11/24/18 19:28; Start 11/16/18 at 21:30 Levetiracetam (Keppra) 500 mg BID PO Last administered on 11/24/18 19:26; Start 11/16/18 at 21:30 Levofloxacin (Levaquin) 750 mg DAILY06 PO Last administered on 11/24/18 06:01; Start 11/17/18 at 06:00 Al Hydroxide/Mg Hydroxide (Mylanta Plus Xs) 15 ml PRN AFTMEALHC PRN PO DYSPEPSIA; Start 11/16/18 at 21:15 Magnesium Hydroxide (Milk Of Magnesia) 2,400 mg PRN QHS PRN PO CONSTIPATION; Start 11/16/18 at 21:15 Pantoprazole Sodium (Protonix) 40 mg DAILY06 PO Last administered on 11/24/18 06:00; Start 11/17/18 at 06:00 Polyethylene Glycol (miraLAX) 17 gm DAILY PO Last administered on 11/24/18 07: 48; Start 11/17/18 at 09:00 Sennosides (Senna) 8.6 mg DAILY PO Last administered on 11/24/18 07:50; Start 11/17/18 at 09:00 Sucralfate (Carafate) 1 gm QIDACHS PO Last administered on 11/24/18 19:27; Start 11/16/18 at 21:30 Timolol Maleate (Timoptic 0.5% Oph) 1 drop BID OU Last administered on 07:48; Start 11/16/18 at 21:30 Chlorpromazine HCl (Thorazine) 25 mg TIDWMEALS PO Last administered on 16:54; Start 11/17/18 at 08:00 Chlorpromazine HCl (Thorazine) 100 mg HS PO Last administered on 11/24/18 19:28 ; Start 11/16/18 at 21:30 Olanzapine (ZyPREXA) 5 mg BID PO Last administered on 11/24/18 19:26; Start at 21:30 Clozapine (Clozaril) 75 mg HS PO Last administered on 11/19/18 20:34; Start at 21:00; Stop 11/20/18 at 18:35; Status DC Lorazepam (Ativan) 0.25 mg PRN Q2HR PRN PO ANXIETY / AGITATION Last administered on 11/18/18 08:00; Start 11/17/18 at 13:00 Tamsulosin HCl (Flomax) 0.8 mg DAILY PO Last administered on 11/24/18 07:48; Start 11/18/18 at 09:00 Clozapine (Clozaril) 100 mg HS PO Last administered on 11/24/18 19:27; Start at 21:00 Lisinopril (Prinivil) 5 mg DAILY PO ; Start 11/25/18 at 09:00 Metoprolol Succinate (Toprol Xl) 12.5 mg DAILY PO ; Start 11/25/18 at 09:00 Active Scripts Active Levaquin (Levofloxacin) 750 Mg Tablet 1 Tab PO DAILY 7 Days Reported Culturelle (Lactobacillus Rhamnosus Gg) 1 Each Capsule 1 Each PO BID Protonix (Pantoprazole Sodium) 40 Mg Tablet.dr 40 Mg PO DAILY06 Analgesic [place] (Methyl Salicylate/Menthol) 28 Gm Oint...g. 1 Jose Elias TP PRN QID PRN D3-50 (Cholecalciferol (Vitamin D3)) 50,000 Unit Capsule 50,000 Unit PO WEEKLY Milk Of Magnesia (Magnesium Hydroxide) 2,400 Mg/10 Ml Oral.susp 2,400 Mg PO QHS PRN Maalox Advanced Suspension (Mag Hydrox/Aluminum Hyd/Simeth) 355 Ml Oral.susp 15 Ml PO PRN AFTMEAL PRN Ativan (Lorazepam) 1 Mg Tablet 0.5 Mg PO Q2HR PRN MDD 2mg/24 hours Acetaminophen 500 Mg Tablet 650 Mg PO Q6HRS PRN Clozapine 100 Mg Tablet 75 Mg PO QHS Trazodone Hcl 50 Mg Tablet 50 Mg PO PRN QHS PRN Timoptic (Timolol Maleate) 10 Ml Drops 1 Drop EACHEYE BID Tamsulosin Hcl 0.4 Mg Cap.er.24h 0.4 Mg PO DAILY Carafate (Sucralfate) 1 Gm Tablet 1 Gm PO QIDACHS Senna (Sennosides) 8.6 Mg Tablet 8.6 Mg PO DAILY Miralax (Polyethylene Glycol 3350) 17 Gm Powd.pack 1 Packet PO DAILY Paxil (Paroxetine Hcl) 20 Mg Tablet 20 Mg PO DAILY Olanzapine 5 Mg Tablet 5 Mg PO BID Toprol Xl (Metoprolol Succinate) 25 Mg Tab.er.24h 25 Mg PO DAILY Lisinopril 10 Mg Tablet 10 Mg PO DAILY Keppra (Levetiracetam) 500 Mg Tablet 500 Mg PO BID Latanoprost 2.5 Ml Drops 1 Drop OS QHS Docusate Sodium 100 Mg Capsule 100 Mg PO BID Chlorpromazine Hcl 100 Mg Tablet 100 Mg PO HS Chlorpromazine Hcl 25 Mg Tablet 25 Mg PO TIDWMEALS Lipitor (Atorvastatin Calcium) 20 Mg Tablet 20 Mg PO QHS Aspirin 81 Mg Tab.chew 81 Mg PO DAILY I have reviewed the current psychotropics carefully including drug interactions. Risk benefit ratio favors no change other than as noted in my dictated progress note. Diagnosis: Problems: (1) UTI (urinary tract infection) due to urinary indwelling catheter (2) Anxiety disorder (3) Bipolar affective disorder, mixed (4) Major depressive disorder, recurrent episode (5) Mild cognitive impairment ANASTACIO REED MD Nov 24, 2018 21:45
[2018-11-25 05:34] VITALS: BP 121/78
[2018-11-25] MEDS: PANTOPRAZOLE 40 MG TABLET. PO SCH (06:23)
[2018-11-25] MEDS: levoFLOXacin 750 MG TABLET PO SCH (06:23)
[2018-11-25] MEDS: SUCRALFATE 1 GM TABLET. PO SCH ×4 (08:05→20:13)
[2018-11-25] MEDS: ASPIRIN 81 MG TAB.CHEW PO SCH (08:39)
[2018-11-25] MEDS: TAMSULOSIN 0.4 MG CAP.ER.24H. PO SCH (08:39)
[2018-11-25] MEDS: SENNOSIDES 8.6 MG TABLET PO SCH (08:39)
[2018-11-25] MEDS: OLANZapine 5 MG TABLET PO SCH ×2 (08:39→20:12)
[2018-11-25] MEDS: DOCUSATE SODIUM 100 MG CAPSULE PO SCH ×2 (08:39→20:13)
[2018-11-25] MEDS: levETIRAcetam 500 MG TABLET PO SCH ×2 (08:39→20:12)
[2018-11-25] MEDS: chlorproMAZINE HCL 25 MG TABLET PO SCH ×4 (08:39→20:13)
[2018-11-25] MEDS: PARoxetine 20 MG TABLET PO SCH (08:39)
[2018-11-25] MEDS: LACTOBACILLUS RHAMNOSUS GG 1 CAPSULE. PO SCH ×2 (08:39→20:13)
[2018-11-25] MEDS: LISINOPRIL 5 MG TABLET. PO SCH (08:42)
[2018-11-25] MEDS: METOPROLOL SUCC 24HR ER 25 MG TAB.ER.24H. PO SCH (08:42)
[2018-11-25] MEDS: POLYETHYLENE GLYCOL 3350 17 GM PACKET. PO SCH (08:42)
[2018-11-25] MEDS: TIMOLOL 0.5% OPHTH SOLUTION 5ML BOTTLE. OU SCH ×2 (08:43→20:18)
[2018-11-25 15:28] VITALS: BP 105/71
[2018-11-25] MEDS: ATORVASTATIN CALCIUM 20 MG TABLET PO SCH (20:12)
[2018-11-25] MEDS: cloZAPine 100 MG TABLET PO SCH (20:12)
[2018-11-25] MEDS: LATANOPROST 0.005% OPHTH SOLUTION 2.5ML BOTTLE. OS SCH (20:17)
--- NOTE | 2018-11-25 21:48 | PDOC ---
Exam Note: Shahram Note: Please also refer to the separate dictated note~for this date of service dictated separately.~Patient seen individually. Discussed the patient with Nursing staff reviewed the chart.~Reviewed interim history and current functioning. Reviewed vital signs,~Labs/ Radiology~and current medications noted below. Continue current treatment with the changes noted in the dictated addendum note Assessment: Vital Signs: Vital Signs Date Time Temp Pulse Resp B/P (MAP) Pulse Ox O2 Delivery O2 Flow Rate FiO2 11/25/18 15:28 97.8 76 16 105/71 (82) 97 11/24/18 15:45 Room Air I&O Intake and Output 11/25/18 06:59 Intake Total 840 ml Output Total 1000 ml Balance -160 ml Intake Oral 840 ml Output Urine Total 1000 ml # Bowel Movements 1 Current Medications: Meds: Current Medications Acetaminophen (Tylenol) 650 mg PRN Q6HRS PRN PO PAIN / TEMP; Start 11/16/18 at 20:15 Non-Formulary Medication (Clozapine ) 75 mg QHS PO ; Start 11/16/18 at 21:00; Stop 11/16/18 at 21:01; Status DC Paroxetine HCl (Paxil) 20 mg DAILY PO Last administered on 11/25/18at 08:39; Start 11/17/18 at 09:00 Trazodone HCl (Desyrel) 50 mg PRN QHS PRN PO INSOMNIA; Start 11/16/18 at 21:00 Atorvastatin Calcium (Lipitor) 20 mg QHS PO Last administered on 11/25/18at 20:12 ; Start 11/16/18 at 21:00 Vitamin D (Vitamin D3) 50,000 unit WEEKLY PO Last administered on 11/23/18at 07: 26; Start 11/23/18 at 09:00 Lisinopril (Prinivil) 10 mg DAILY PO Last administered on 11/24/18at 07:50; Start 11/17/18 at 09:00; Stop 11/24/18 at 15:53; Status DC Metoprolol Succinate (Toprol Xl) 25 mg DAILY PO Last administered on 11/24/18at 07:54; Start 11/17/18 at 09:00; Stop 11/24/18 at 15:53; Status DC Tamsulosin HCl (Flomax) 0.4 mg DAILY PO Last administered on 11/17/18 08:11; Start 11/17/18 at 09:00; Stop 11/17/18 at 17:42; Status DC Acetaminophen (Tylenol) 650 mg PRN Q6HRS PRN PO PAIN / TEMP; Start 11/16/18 at 21:15; Status Cancel Aspirin (Children'S Aspirin) 81 mg DAILYWBKFT PO Last administered on 11/25/18 08:39; Start 11/17/18 at 08:00 Docusate Sodium (Colace) 100 mg BID PO Last administered on 11/25/18 20:13; Start 11/16/18 at 21:15 Lactobacillus Rhamnosus (Culturelle) 1 cap BID PO Last administered on 20:13; Start 11/16/18 at 21:30 Latanoprost (Xalatan) 1 drop QHS OS Last administered on 11/25/18 20:17; Start 11/16/18 at 21:30 Levetiracetam (Keppra) 500 mg BID PO Last administered on 11/25/18 20:12; Start 11/16/18 at 21:30 Levofloxacin (Levaquin) 750 mg DAILY06 PO Last administered on 11/25/18 06:23; Start 11/17/18 at 06:00; Stop 11/25/18 at 06:44; Status DC Al Hydroxide/Mg Hydroxide (Mylanta Plus Xs) 15 ml PRN AFTMEALHC PRN PO DYSPEPSIA; Start 11/16/18 at 21:15 Magnesium Hydroxide (Milk Of Magnesia) 2,400 mg PRN QHS PRN PO CONSTIPATION; Start 11/16/18 at 21:15 Pantoprazole Sodium (Protonix) 40 mg DAILY06 PO Last administered on 11/25/18 06:23; Start 11/17/18 at 06:00 Polyethylene Glycol (miraLAX) 17 gm DAILY PO Last administered on 11/25/18 08: 42; Start 11/17/18 at 09:00 Sennosides (Senna) 8.6 mg DAILY PO Last administered on 11/25/18 08:39; Start 11/17/18 at 09:00 Sucralfate (Carafate) 1 gm QIDACHS PO Last administered on 11/25/18 20:13; Start 11/16/18 at 21:30 Timolol Maleate (Timoptic 0.5% Oph) 1 drop BID OU Last administered on 20:18; Start 11/16/18 at 21:30 Chlorpromazine HCl (Thorazine) 25 mg TIDWMEALS PO Last administered on 16:40; Start 11/17/18 at 08:00 Chlorpromazine HCl (Thorazine) 100 mg HS PO Last administered on 11/25/18 20:13 ; Start 11/16/18 at 21:30 Olanzapine (ZyPREXA) 5 mg BID PO Last administered on 11/25/18 20:12; Start at 21:30 Clozapine (Clozaril) 75 mg HS PO Last administered on 11/19/18 20:34; Start at 21:00; Stop 11/20/18 at 18:35; Status DC Lorazepam (Ativan) 0.25 mg PRN Q2HR PRN PO ANXIETY / AGITATION Last administered on 11/18/18 08:00; Start 11/17/18 at 13:00 Tamsulosin HCl (Flomax) 0.8 mg DAILY PO Last administered on 11/25/18 08:39; Start 11/18/18 at 09:00 Clozapine (Clozaril) 100 mg HS PO Last administered on 11/25/18 20:12; Start at 21:00 Lisinopril (Prinivil) 5 mg DAILY PO Last administered on 11/25/18 08:42; Start 11/25/18 at 09:00 Metoprolol Succinate (Toprol Xl) 12.5 mg DAILY PO ; Start 11/25/18 at 09:00 Active Scripts Active Levaquin (Levofloxacin) 750 Mg Tablet 1 Tab PO DAILY 7 Days Reported Culturelle (Lactobacillus Rhamnosus Gg) 1 Each Capsule 1 Each PO BID Protonix (Pantoprazole Sodium) 40 Mg Tablet.dr 40 Mg PO DAILY06 Analgesic [place] (Methyl Salicylate/Menthol) 28 Gm Oint...g. 1 Jose Elias TP PRN QID PRN D3-50 (Cholecalciferol (Vitamin D3)) 50,000 Unit Capsule 50,000 Unit PO WEEKLY Milk Of Magnesia (Magnesium Hydroxide) 2,400 Mg/10 Ml Oral.susp 2,400 Mg PO QHS PRN Maalox Advanced Suspension (Mag Hydrox/Aluminum Hyd/Simeth) 355 Ml Oral.susp 15 Ml PO PRN AFTMEAL PRN Ativan (Lorazepam) 1 Mg Tablet 0.5 Mg PO Q2HR PRN MDD 2mg/24 hours Acetaminophen 500 Mg Tablet 650 Mg PO Q6HRS PRN Clozapine 100 Mg Tablet 75 Mg PO QHS Trazodone Hcl 50 Mg Tablet 50 Mg PO PRN QHS PRN Timoptic (Timolol Maleate) 10 Ml Drops 1 Drop EACHEYE BID Tamsulosin Hcl 0.4 Mg Cap.er.24h 0.4 Mg PO DAILY Carafate (Sucralfate) 1 Gm Tablet 1 Gm PO QIDACHS Senna (Sennosides) 8.6 Mg Tablet 8.6 Mg PO DAILY Miralax (Polyethylene Glycol 3350) 17 Gm Powd.pack 1 Packet PO DAILY Paxil (Paroxetine Hcl) 20 Mg Tablet 20 Mg PO DAILY Olanzapine 5 Mg Tablet 5 Mg PO BID Toprol Xl (Metoprolol Succinate) 25 Mg Tab.er.24h 25 Mg PO DAILY Lisinopril 10 Mg Tablet 10 Mg PO DAILY Keppra (Levetiracetam) 500 Mg Tablet 500 Mg PO BID Latanoprost 2.5 Ml Drops 1 Drop OS QHS Docusate Sodium 100 Mg Capsule 100 Mg PO BID Chlorpromazine Hcl 100 Mg Tablet 100 Mg PO HS Chlorpromazine Hcl 25 Mg Tablet 25 Mg PO TIDWMEALS Lipitor (Atorvastatin Calcium) 20 Mg Tablet 20 Mg PO QHS Aspirin 81 Mg Tab.chew 81 Mg PO DAILY I have reviewed the current psychotropics carefully including drug interactions. Risk benefit ratio favors no change other than as noted in my dictated progress note. Diagnosis: Problems: (1) Anxiety disorder (2) Bipolar affective disorder, mixed (3) Major depressive disorder, recurrent episode (4) Mild cognitive impairment ANASTACIO REED MD Nov 25, 2018 21:48
[2018-11-26 05:42] VITALS: BP 136/88
[2018-11-26] MEDS: PANTOPRAZOLE 40 MG TABLET. PO SCH (06:04)
[2018-11-26] MEDS: SUCRALFATE 1 GM TABLET. PO SCH ×4 (07:27→19:59)
[2018-11-26] MEDS: OLANZapine 5 MG TABLET PO SCH ×2 (07:52→19:59)
[2018-11-26] MEDS: LISINOPRIL 5 MG TABLET. PO SCH (07:52)
[2018-11-26] MEDS: POLYETHYLENE GLYCOL 3350 17 GM PACKET. PO SCH (07:52)
[2018-11-26] MEDS: PARoxetine 20 MG TABLET PO SCH (07:52)
[2018-11-26] MEDS: chlorproMAZINE HCL 25 MG TABLET PO SCH ×4 (07:53→20:00)
[2018-11-26] MEDS: DOCUSATE SODIUM 100 MG CAPSULE PO SCH ×2 (07:53→19:59)
[2018-11-26] MEDS: TAMSULOSIN 0.4 MG CAP.ER.24H. PO SCH (07:53)
[2018-11-26] MEDS: LACTOBACILLUS RHAMNOSUS GG 1 CAPSULE. PO SCH ×2 (07:53→19:59)
[2018-11-26] MEDS: SENNOSIDES 8.6 MG TABLET PO SCH (07:53)
[2018-11-26] MEDS: METOPROLOL SUCC 24HR ER 25 MG TAB.ER.24H. PO SCH (07:53)
[2018-11-26] MEDS: levETIRAcetam 500 MG TABLET PO SCH ×2 (07:54→19:59)
[2018-11-26] MEDS: TIMOLOL 0.5% OPHTH SOLUTION 5ML BOTTLE. OU SCH ×2 (07:54→20:00)
[2018-11-26] MEDS: ASPIRIN 81 MG TAB.CHEW PO SCH (07:54)
[2018-11-26 15:58] VITALS: BP 96/61
[2018-11-26] MEDS: cloZAPine 100 MG TABLET PO SCH (19:59)
[2018-11-26] MEDS: ATORVASTATIN CALCIUM 20 MG TABLET PO SCH (19:59)
[2018-11-26] MEDS: LATANOPROST 0.005% OPHTH SOLUTION 2.5ML BOTTLE. OS SCH (20:00)
--- NOTE | 2018-11-26 21:19 | PN ---
DATE: 11/24/2018 PSYCHIATRIC PROGRESS NOTE This late entry 11/24/2018 covers elements not covered in my initial note. SUBJECTIVE: I met with the patient in the evening. The patient slept 7-3/4 hours previous night. He remains somewhat withdrawn. Blood pressure is low. Lisinopril has been reduced. REVIEW OF SYSTEMS: Positive with some difficulty swallowing and ambulation. No CV, , pulmonary, eye system symptoms on review. MENTAL STATUS EXAM: The patient is reasonably oriented. Speech has moderate latency, often responses monosyllabic. Abstraction fair, computation impaired, language function intact, attention span short. Mood and affect is withdrawn. LABORATORY DATA: Reviewed. IMPRESSION: Unchanged from initial note. PLAN: No change from initial note. MAN Villa REED MD DR: CRYSTAL/nicole JOB#: [id number] / [id number]
--- NOTE | 2018-11-26 22:32 | PDOC ---
Exam Note: Shahram Note: Please also refer to the separate dictated note~for this date of service dictated separately.~Patient seen individually. Discussed the patient with Nursing staff reviewed the chart.~Reviewed interim history and current functioning. Reviewed vital signs,~Labs/ Radiology~and current medications noted below. Continue current treatment with the changes noted in the dictated addendum note Assessment: Vital Signs: Vital Signs Date Time Temp Pulse Resp B/P (MAP) Pulse Ox O2 Delivery O2 Flow Rate FiO2 11/26/18 15:58 98.3 71 19 96/61 (73) 100 11/26/18 05:42 Room Air I&O Intake and Output 11/26/18 07:00 Intake Total 1200 ml Output Total 2950 ml Balance -1750 ml Intake Oral 1200 ml Output Urine Total 2950 ml Current Medications: Meds: Current Medications Acetaminophen (Tylenol) 650 mg PRN Q6HRS PRN PO PAIN / TEMP; Start 11/16/18 at 20:15 Non-Formulary Medication (Clozapine ) 75 mg QHS PO ; Start 11/16/18 at 21:00; Stop 11/16/18 at 21:01; Status DC Paroxetine HCl (Paxil) 20 mg DAILY PO Last administered on 11/26/18at 07:52; Start 11/17/18 at 09:00 Trazodone HCl (Desyrel) 50 mg PRN QHS PRN PO INSOMNIA; Start 11/16/18 at 21:00 Atorvastatin Calcium (Lipitor) 20 mg QHS PO Last administered on 11/26/18at 19:59 ; Start 11/16/18 at 21:00 Vitamin D (Vitamin D3) 50,000 unit WEEKLY PO Last administered on 11/23/18at 07: 26; Start 11/23/18 at 09:00 Lisinopril (Prinivil) 10 mg DAILY PO Last administered on 11/24/18at 07:50; Start 11/17/18 at 09:00; Stop 11/24/18 at 15:53; Status DC Metoprolol Succinate (Toprol Xl) 25 mg DAILY PO Last administered on 11/24/18at 07:54; Start 11/17/18 at 09:00; Stop 11/24/18 at 15:53; Status DC Tamsulosin HCl (Flomax) 0.4 mg DAILY PO Last administered on 11/17/18at 08:11; Start 11/17/18 at 09:00; Stop 11/17/18 at 17:42; Status DC Acetaminophen (Tylenol) 650 mg PRN Q6HRS PRN PO PAIN / TEMP; Start 11/16/18 at 21:15; Status Cancel Aspirin (Children'S Aspirin) 81 mg DAILYWBKFT PO Last administered on 11/26/18 07:54; Start 11/17/18 at 08:00 Docusate Sodium (Colace) 100 mg BID PO Last administered on 11/26/18 19:59; Start 11/16/18 at 21:15 Lactobacillus Rhamnosus (Culturelle) 1 cap BID PO Last administered on 19:59; Start 11/16/18 at 21:30 Latanoprost (Xalatan) 1 drop QHS OS Last administered on 11/26/18 20:00; Start 11/16/18 at 21:30 Levetiracetam (Keppra) 500 mg BID PO Last administered on 11/26/18 19:59; Start 11/16/18 at 21:30 Levofloxacin (Levaquin) 750 mg DAILY06 PO Last administered on 11/25/18 06:23; Start 11/17/18 at 06:00; Stop 11/25/18 at 06:44; Status DC Al Hydroxide/Mg Hydroxide (Mylanta Plus Xs) 15 ml PRN AFTMEALHC PRN PO DYSPEPSIA; Start 11/16/18 at 21:15 Magnesium Hydroxide (Milk Of Magnesia) 2,400 mg PRN QHS PRN PO CONSTIPATION; Start 11/16/18 at 21:15 Pantoprazole Sodium (Protonix) 40 mg DAILY06 PO Last administered on 11/26/18 06:04; Start 11/17/18 at 06:00 Polyethylene Glycol (miraLAX) 17 gm DAILY PO Last administered on 11/26/18 07: 52; Start 11/17/18 at 09:00 Sennosides (Senna) 8.6 mg DAILY PO Last administered on 11/26/18 07:53; Start 11/17/18 at 09:00 Sucralfate (Carafate) 1 gm QIDACHS PO Last administered on 11/26/18 19:59; Start 11/16/18 at 21:30 Timolol Maleate (Timoptic 0.5% Oph) 1 drop BID OU Last administered on 20:00; Start 11/16/18 at 21:30 Chlorpromazine HCl (Thorazine) 25 mg TIDWMEALS PO Last administered on 16:32; Start 11/17/18 at 08:00 Chlorpromazine HCl (Thorazine) 100 mg HS PO Last administered on 11/26/18 20:00 ; Start 11/16/18 at 21:30 Olanzapine (ZyPREXA) 5 mg BID PO Last administered on 11/26/18 19:59; Start at 21:30 Clozapine (Clozaril) 75 mg HS PO Last administered on 11/19/18 20:34; Start at 21:00; Stop 11/20/18 at 18:35; Status DC Lorazepam (Ativan) 0.25 mg PRN Q2HR PRN PO ANXIETY / AGITATION Last administered on 11/18/18 08:00; Start 11/17/18 at 13:00 Tamsulosin HCl (Flomax) 0.8 mg DAILY PO Last administered on 11/26/18 07:53; Start 11/18/18 at 09:00 Clozapine (Clozaril) 100 mg HS PO Last administered on 11/26/18 19:59; Start at 21:00 Lisinopril (Prinivil) 5 mg DAILY PO Last administered on 11/26/18 07:52; Start 11/25/18 at 09:00 Metoprolol Succinate (Toprol Xl) 12.5 mg DAILY PO Last administered on 07:53; Start 11/25/18 at 09:00 Active Scripts Active Levaquin (Levofloxacin) 750 Mg Tablet 1 Tab PO DAILY 7 Days Reported Culturelle (Lactobacillus Rhamnosus Gg) 1 Each Capsule 1 Each PO BID Protonix (Pantoprazole Sodium) 40 Mg Tablet.dr 40 Mg PO DAILY06 Analgesic [place] (Methyl Salicylate/Menthol) 28 Gm Oint...g. 1 Jose Elias TP PRN QID PRN D3-50 (Cholecalciferol (Vitamin D3)) 50,000 Unit Capsule 50,000 Unit PO WEEKLY Milk Of Magnesia (Magnesium Hydroxide) 2,400 Mg/10 Ml Oral.susp 2,400 Mg PO QHS PRN Maalox Advanced Suspension (Mag Hydrox/Aluminum Hyd/Simeth) 355 Ml Oral.susp 15 Ml PO PRN AFTMEAL PRN Ativan (Lorazepam) 1 Mg Tablet 0.5 Mg PO Q2HR PRN MDD 2mg/24 hours Acetaminophen 500 Mg Tablet 650 Mg PO Q6HRS PRN Clozapine 100 Mg Tablet 75 Mg PO QHS Trazodone Hcl 50 Mg Tablet 50 Mg PO PRN QHS PRN Timoptic (Timolol Maleate) 10 Ml Drops 1 Drop EACHEYE BID Tamsulosin Hcl 0.4 Mg Cap.er.24h 0.4 Mg PO DAILY Carafate (Sucralfate) 1 Gm Tablet 1 Gm PO QIDACHS Senna (Sennosides) 8.6 Mg Tablet 8.6 Mg PO DAILY Miralax (Polyethylene Glycol 3350) 17 Gm Powd.pack 1 Packet PO DAILY Paxil (Paroxetine Hcl) 20 Mg Tablet 20 Mg PO DAILY Olanzapine 5 Mg Tablet 5 Mg PO BID Toprol Xl (Metoprolol Succinate) 25 Mg Tab.er.24h 25 Mg PO DAILY Lisinopril 10 Mg Tablet 10 Mg PO DAILY Keppra (Levetiracetam) 500 Mg Tablet 500 Mg PO BID Latanoprost 2.5 Ml Drops 1 Drop OS QHS Docusate Sodium 100 Mg Capsule 100 Mg PO BID Chlorpromazine Hcl 100 Mg Tablet 100 Mg PO HS Chlorpromazine Hcl 25 Mg Tablet 25 Mg PO TIDWMEALS Lipitor (Atorvastatin Calcium) 20 Mg Tablet 20 Mg PO QHS Aspirin 81 Mg Tab.chew 81 Mg PO DAILY I have reviewed the current psychotropics carefully including drug interactions. Risk benefit ratio favors no change other than as noted in my dictated progress note. Diagnosis: Problems: (1) UTI (urinary tract infection) due to urinary indwelling catheter (2) Anxiety disorder (3) Bipolar affective disorder, mixed (4) Major depressive disorder, recurrent episode (5) Mild cognitive impairment ANASTACIO REED MD Nov 26, 2018 22:32
[2018-11-27] MEDS: PANTOPRAZOLE 40 MG TABLET. PO SCH (04:50)
[2018-11-27 05:41] VITALS: BP 120/73
[2018-11-27] MEDS: SUCRALFATE 1 GM TABLET. PO SCH ×4 (07:31→20:29)
[2018-11-27 07:41] LABS: BASO % 1 % (0-3); EOS # 0.2 x10^3/uL (0.0-0.7); EOS % 5 % (0-3); HEMATOCRIT 37.3 % (39.0-53.0); LYMPH # 1.3 x10^3/uL (1.0-4.8); LYMPH % 31 % (24-48); MEAN CORPUSCULAR HEMOGLOBIN 34 pg (25-35); MEAN CORPUSCULAR HGB CONC 35 g/dL (31-37); MEAN CORPUSCULAR VOLUME 96 fL (79-100); MONO # 0.3 x10^3/uL (0.0-1.1); MONO % 8 % (0-9); NEUT # 2.3 x10^3uL (1.8-7.7); NEUT % 55 % (31-73); PLATELET COUNT 184 x10^3/uL (140-400); RED BLOOD COUNT 3.89 x10^6/uL (4.30-5.70); RED CELL DISTRIBUTION WIDTH 13.3 % (11.5-14.5); WHITE BLOOD COUNT 4.2 x10^3/uL (4.0-11.0)
[2018-11-27 07:56] LABS: ALBUMIN 3.3 g/dL (3.4-5.0); CALCIUM 9.1 mg/dL (8.5-10.1); CREATININE 0.8 mg/dL (0.7-1.3); GFR 96.1; POTASSIUM 4.1 mmol/L (3.5-5.1); TOTAL BILIRUBIN 0.5 mg/dL (0.2-1.0); TOTAL PROTEIN 6.6 g/dL (6.4-8.2)
[2018-11-27] MEDS: OLANZapine 5 MG TABLET PO SCH ×2 (08:21→20:27)
[2018-11-27] MEDS: DOCUSATE SODIUM 100 MG CAPSULE PO SCH ×2 (08:21→20:28)
[2018-11-27] MEDS: chlorproMAZINE HCL 25 MG TABLET PO SCH ×4 (08:21→20:30)
[2018-11-27] MEDS: levETIRAcetam 500 MG TABLET PO SCH ×2 (08:21→20:28)
[2018-11-27] MEDS: TIMOLOL 0.5% OPHTH SOLUTION 5ML BOTTLE. OU SCH ×2 (08:22→20:27)
[2018-11-27] MEDS: METOPROLOL SUCC 24HR ER 25 MG TAB.ER.24H. PO SCH (08:22)
[2018-11-27] MEDS: PARoxetine 20 MG TABLET PO SCH (08:22)
[2018-11-27] MEDS: POLYETHYLENE GLYCOL 3350 17 GM PACKET. PO SCH (08:22)
[2018-11-27] MEDS: LISINOPRIL 5 MG TABLET. PO SCH (08:23)
[2018-11-27] MEDS: ASPIRIN 81 MG TAB.CHEW PO SCH (08:23)
[2018-11-27] MEDS: TAMSULOSIN 0.4 MG CAP.ER.24H. PO SCH (08:23)
[2018-11-27] MEDS: SENNOSIDES 8.6 MG TABLET PO SCH (08:23)
[2018-11-27] MEDS: LACTOBACILLUS RHAMNOSUS GG 1 CAPSULE. PO SCH ×2 (08:23→20:28)
[2018-11-27 16:01] VITALS: BP 97/63
--- NOTE | 2018-11-27 20:08 | PN ---
DATE: 11/25/2018 PSYCHIATRIC PROGRESS NOTE This late entry, 11/25/2017, covers elements not covered in my initial note. SUBJECTIVE: I met with the patient in the evening. The patient slept 8-1/2 hours previous night. Blood pressure is somewhat low, we will defer to Dr. Robertson. He has been less anxious, less labile, less paranoid. REVIEW OF SYSTEMS: No CV, , pulmonary, eye system symptoms on review. Does have impaired ambulation. Some shortness of breath. MENTAL STATUS EXAM: Reasonably oriented. Speech is coherent, has some latency. Abstraction fair, computation impaired, language function intact, attention span short. Mood and affect somewhat withdrawn. LABORATORY DATA: Reviewed. IMPRESSION: Unchanged from initial note. PLAN: No change from initial note. We will check labs on Clozaril on 11/27/2018 and then determine. MAN Villa REED MD DR: CRYSTAL/nicole JOB#: [id number] / [id number]
--- NOTE | 2018-11-27 20:12 | PN ---
DATE: 11/26/2018 PSYCHIATRIC PROGRESS NOTE This late entry 11/26/2018 covers elements not covered in my initial note. SUBJECTIVE: I met with the patient in the evening. The patient slept 6 hours previous night. He remains somewhat withdrawn, but less anxious, less somatic. Ambulates with a walker. No CV, , eye system symptoms on review. Some shortness of breath is evident, remains on O2 supplements. MENTAL STATUS EXAM: Reasonably oriented. Speech is coherent, has some latency. Abstraction fair, computation impaired, language function intact, attention span short. Mood and affect is improved. LABORATORY DATA: Reviewed. IMPRESSION: Unchanged from initial note. PLAN: No change from initial note. Check absolute neutrophil count on 11/27/2018 and then adjust the Clozaril on 11/27/2018. MAN Villa REED MD DR: CRYSTAL/nicole JOB#: [id number] / [id number]
[2018-11-27] MEDS: ATORVASTATIN CALCIUM 20 MG TABLET PO SCH (20:28)
[2018-11-27] MEDS: cloZAPine 100 MG TABLET PO SCH (20:28)
[2018-11-27] MEDS: cloZAPine 25 MG TABLET PO SCH (20:29)
[2018-11-27] MEDS: LATANOPROST 0.005% OPHTH SOLUTION 2.5ML BOTTLE. OS SCH (20:44)
--- NOTE | 2018-11-27 22:28 | PDOC ---
Exam Note: Shahram Note: Please also refer to the separate dictated note~for this date of service dictated separately.~Patient seen individually. Discussed the patient with Nursing staff reviewed the chart.~Reviewed interim history and current functioning. Reviewed vital signs,~Labs/ Radiology~and current medications noted below. Continue current treatment with the changes noted in the dictated addendum note Assessment: Vital Signs: Vital Signs Date Time Temp Pulse Resp B/P (MAP) Pulse Ox O2 Delivery O2 Flow Rate FiO2 11/27/18 16:01 98.5 75 20 97/63 (74) 98 11/26/18 05:42 Room Air I&O Intake and Output 11/27/18 06:59 Intake Total 1200 ml Output Total 4125 ml Balance -2925 ml Intake Oral 1200 ml Output Urine Total 4125 ml Labs: Laboratory Tests Test 11/27/18 07:19 White Blood Count 4.2 x10^3/uL (4.0-11.0) Red Blood Count 3.89 x10^6/uL (4.30-5.70) L Hemoglobin 13.0 g/dL (13.0-17.5) Hematocrit 37.3 % (39.0-53.0) L Mean Corpuscular Volume 96 fL (79-100) Mean Corpuscular Hemoglobin 34 pg (25-35) Mean Corpuscular Hemoglobin Concent 35 g/dL (31-37) Red Cell Distribution Width 13.3 % (11.5-14.5) Platelet Count 184 x10^3/uL (140-400) Neutrophils (%) (Auto) 55 % (31-73) Lymphocytes (%) (Auto) 31 % (24-48) Monocytes (%) (Auto) 8 % (0-9) Eosinophils (%) (Auto) 5 % (0-3) H Basophils (%) (Auto) 1 % (0-3) Neutrophils # (Auto) 2.3 x10^3uL (1.8-7.7) Lymphocytes # (Auto) 1.3 x10^3/uL (1.0-4.8) Monocytes # (Auto) 0.3 x10^3/uL (0.0-1.1) Eosinophils # (Auto) 0.2 x10^3/uL (0.0-0.7) Basophils # (Auto) 0.0 x10^3/uL (0.0-0.2) Sodium Level 145 mmol/L (136-145) Potassium Level 4.1 mmol/L (3.5-5.1) Chloride Level 107 mmol/L (98-107) Carbon Dioxide Level 30 mmol/L (21-32) Anion Gap 8 (6-14) Blood Urea Nitrogen 8 mg/dL (8-26) Creatinine 0.8 mg/dL (0.7-1.3) Estimated GFR (Cockcroft-Gault) 96.1 BUN/Creatinine Ratio 10 (6-20) Glucose Level 106 mg/dL (70-99) H Calcium Level 9.1 mg/dL (8.5-10.1) Total Bilirubin 0.5 mg/dL (0.2-1.0) Aspartate Amino Transferase (AST) 24 U/L (15-37) Alanine Aminotransferase (ALT) 23 U/L (16-63) Alkaline Phosphatase 110 U/L (46-116) Total Protein 6.6 g/dL (6.4-8.2) Albumin 3.3 g/dL (3.4-5.0) L Albumin/Globulin Ratio 1.0 (1.0-1.7) Current Medications: Meds: Current Medications Acetaminophen (Tylenol) 650 mg PRN Q6HRS PRN PO PAIN / TEMP; Start 11/16/18 at 20:15 Non-Formulary Medication (Clozapine ) 75 mg QHS PO ; Start 11/16/18 at 21:00; Stop 11/16/18 at 21:01; Status DC Paroxetine HCl (Paxil) 20 mg DAILY PO Last administered on 11/27/18at 08:22; Start 11/17/18 at 09:00 Trazodone HCl (Desyrel) 50 mg PRN QHS PRN PO INSOMNIA; Start 11/16/18 at 21:00 Atorvastatin Calcium (Lipitor) 20 mg QHS PO Last administered on 11/27/18at 20:28 ; Start 11/16/18 at 21:00 Vitamin D (Vitamin D3) 50,000 unit WEEKLY PO Last administered on 11/23/18at 07: 26; Start 11/23/18 at 09:00 Lisinopril (Prinivil) 10 mg DAILY PO Last administered on 11/24/18at 07:50; Start 11/17/18 at 09:00; Stop 11/24/18 at 15:53; Status DC Metoprolol Succinate (Toprol Xl) 25 mg DAILY PO Last administered on 11/24/18 07:54; Start 11/17/18 at 09:00; Stop 11/24/18 at 15:53; Status DC Tamsulosin HCl (Flomax) 0.4 mg DAILY PO Last administered on 11/17/18at 08:11; Start 11/17/18 at 09:00; Stop 11/17/18 at 17:42; Status DC Acetaminophen (Tylenol) 650 mg PRN Q6HRS PRN PO PAIN / TEMP; Start 11/16/18 at 21:15; Status Cancel Aspirin (Children'S Aspirin) 81 mg DAILYWBKFT PO Last administered on 11/27/18 08:23; Start 11/17/18 at 08:00 Docusate Sodium (Colace) 100 mg BID PO Last administered on 11/27/18 20:28; Start 11/16/18 at 21:15 Lactobacillus Rhamnosus (Culturelle) 1 cap BID PO Last administered on 20:28; Start 11/16/18 at 21:30 Latanoprost (Xalatan) 1 drop QHS OS Last administered on 11/27/18 20:44; Start 11/16/18 at 21:30 Levetiracetam (Keppra) 500 mg BID PO Last administered on 11/27/18 20:28; Start 11/16/18 at 21:30 Levofloxacin (Levaquin) 750 mg DAILY06 PO Last administered on 11/25/18 06:23; Start 11/17/18 at 06:00; Stop 11/25/18 at 06:44; Status DC Al Hydroxide/Mg Hydroxide (Mylanta Plus Xs) 15 ml PRN AFTMEALHC PRN PO DYSPEPSIA; Start 11/16/18 at 21:15 Magnesium Hydroxide (Milk Of Magnesia) 2,400 mg PRN QHS PRN PO CONSTIPATION; Start 11/16/18 at 21:15 Pantoprazole Sodium (Protonix) 40 mg DAILY06 PO Last administered on 11/27/18 04:50; Start 11/17/18 at 06:00 Polyethylene Glycol (miraLAX) 17 gm DAILY PO Last administered on 11/27/18 08: 22; Start 11/17/18 at 09:00 Sennosides (Senna) 8.6 mg DAILY PO Last administered on 11/27/18 08:23; Start 11/17/18 at 09:00 Sucralfate (Carafate) 1 gm QIDACHS PO Last administered on 11/27/18 20:29; Start 11/16/18 at 21:30 Timolol Maleate (Timoptic 0.5% Ophth) 1 drop BID OU Last administered on 20:27; Start 11/16/18 at 21:30 Chlorpromazine HCl (Thorazine) 25 mg TIDWMEALS PO Last administered on 16:59; Start 11/17/18 at 08:00 Chlorpromazine HCl (Thorazine) 100 mg HS PO Last administered on 11/27/18 20:30 ; Start 11/16/18 at 21:30 Olanzapine (ZyPREXA) 5 mg BID PO Last administered on 11/27/18 20:27; Start at 21:30 Clozapine (Clozaril) 75 mg HS PO Last administered on 11/19/18 20:34; Start at 21:00; Stop 11/20/18 at 18:35; Status DC Lorazepam (Ativan) 0.25 mg PRN Q2HR PRN PO ANXIETY / AGITATION Last administered on 11/18/18 08:00; Start 11/17/18 at 13:00 Tamsulosin HCl (Flomax) 0.8 mg DAILY PO Last administered on 11/27/18 08:23; Start 11/18/18 at 09:00 Clozapine (Clozaril) 100 mg HS PO Last administered on 11/26/18 19:59; Start at 21:00; Stop 11/27/18 at 19:13; Status DC Lisinopril (Prinivil) 5 mg DAILY PO Last administered on 11/27/18 08:23; Start 11/25/18 at 09:00; Stop 11/27/18 at 16:41; Status DC Metoprolol Succinate (Toprol Xl) 12.5 mg DAILY PO Last administered on 3/4/ 19at 08:22; Start 11/25/18 at 09:00 Clozapine (Clozaril) 100 mg HS PO Last administered on 11/27/18at 20:28; Start at 21:00 Clozapine (Clozaril) 25 mg QHS PO Last administered on 11/27/18at 20:29; Start at 21:00 Active Scripts Active Levaquin (Levofloxacin) 750 Mg Tablet 1 Tab PO DAILY 7 Days Reported Culturelle (Lactobacillus Rhamnosus Gg) 1 Each Capsule 1 Each PO BID Protonix (Pantoprazole Sodium) 40 Mg Tablet.dr 40 Mg PO DAILY06 Analgesic [place] (Methyl Salicylate/Menthol) 28 Gm Oint...g. 1 Jose Elias TP PRN QID PRN D3-50 (Cholecalciferol (Vitamin D3)) 50,000 Unit Capsule 50,000 Unit PO WEEKLY Milk Of Magnesia (Magnesium Hydroxide) 2,400 Mg/10 Ml Oral.susp 2,400 Mg PO QHS PRN Maalox Advanced Suspension (Mag Hydrox/Aluminum Hyd/Simeth) 355 Ml Oral.susp 15 Ml PO PRN AFTMEAL PRN Ativan (Lorazepam) 1 Mg Tablet 0.5 Mg PO Q2HR PRN MDD 2mg/24 hours Acetaminophen 500 Mg Tablet 650 Mg PO Q6HRS PRN Clozapine 100 Mg Tablet 75 Mg PO QHS Trazodone Hcl 50 Mg Tablet 50 Mg PO PRN QHS PRN Timoptic (Timolol Maleate) 10 Ml Drops 1 Drop EACHEYE BID Tamsulosin Hcl 0.4 Mg Cap.er.24h 0.4 Mg PO DAILY Carafate (Sucralfate) 1 Gm Tablet 1 Gm PO QIDACHS Senna (Sennosides) 8.6 Mg Tablet 8.6 Mg PO DAILY Miralax (Polyethylene Glycol 3350) 17 Gm Powd.pack 1 Packet PO DAILY Paxil (Paroxetine Hcl) 20 Mg Tablet 20 Mg PO DAILY Olanzapine 5 Mg Tablet 5 Mg PO BID Toprol Xl (Metoprolol Succinate) 25 Mg Tab.er.24h 25 Mg PO DAILY Lisinopril 10 Mg Tablet 10 Mg PO DAILY Keppra (Levetiracetam) 500 Mg Tablet 500 Mg PO BID Latanoprost 2.5 Ml Drops 1 Drop OS QHS Docusate Sodium 100 Mg Capsule 100 Mg PO BID Chlorpromazine Hcl 100 Mg Tablet 100 Mg PO HS Chlorpromazine Hcl 25 Mg Tablet 25 Mg PO TIDWMEALS Lipitor (Atorvastatin Calcium) 20 Mg Tablet 20 Mg PO QHS Aspirin 81 Mg Tab.chew 81 Mg PO DAILY I have reviewed the current psychotropics carefully including drug interactions. Risk benefit ratio favors no change other than as noted in my dictated progress note. Diagnosis: Problems: (1) UTI (urinary tract infection) due to urinary indwelling catheter (2) Anxiety disorder (3) Bipolar affective disorder, mixed (4) Major depressive disorder, recurrent episode (5) Mild cognitive impairment ANASTACIO REED MD Nov 27, 2018 22:28
[2018-11-28] MEDS: PANTOPRAZOLE 40 MG TABLET. PO SCH (05:33)
[2018-11-28 05:44] VITALS: BP 126/78
[2018-11-28] MEDS: SUCRALFATE 1 GM TABLET. PO SCH ×4 (07:31→20:41)
[2018-11-28] MEDS: OLANZapine 5 MG TABLET PO SCH (07:49)
[2018-11-28] MEDS: chlorproMAZINE HCL 25 MG TABLET PO SCH ×5 (07:49→20:52)
[2018-11-28] MEDS: PARoxetine 20 MG TABLET PO SCH (07:49)
[2018-11-28] MEDS: levETIRAcetam 500 MG TABLET PO SCH ×2 (07:50→20:39)
[2018-11-28] MEDS: DOCUSATE SODIUM 100 MG CAPSULE PO SCH ×2 (07:50→20:39)
[2018-11-28] MEDS: TAMSULOSIN 0.4 MG CAP.ER.24H. PO SCH (07:50)
[2018-11-28] MEDS: ASPIRIN 81 MG TAB.CHEW PO SCH (07:50)
[2018-11-28] MEDS: LACTOBACILLUS RHAMNOSUS GG 1 CAPSULE. PO SCH ×2 (07:50→20:38)
[2018-11-28] MEDS: METOPROLOL SUCC 24HR ER 25 MG TAB.ER.24H. PO SCH (07:51)
[2018-11-28] MEDS: SENNOSIDES 8.6 MG TABLET PO SCH (07:52)
[2018-11-28] MEDS: POLYETHYLENE GLYCOL 3350 17 GM PACKET. PO SCH (07:52)
[2018-11-28] MEDS: TIMOLOL 0.5% OPHTH SOLUTION 5ML BOTTLE. OU SCH ×2 (07:52→20:38)
[2018-11-28 11:15] VITALS: BP 116/78
[2018-11-28 11:28] VITALS: BP 131/74
--- NOTE | 2018-11-28 15:18 | PN ---
DATE: 11/27/2018 PSYCHIATRIC PROGRESS NOTE This late entry 11/27/2018, covers elements not covered in my initial note. SUBJECTIVE: I met with the patient in the evening. The patient slept 6 hours previous night. He had a better day, took a shower, less somatically preoccupied, cooperative with ADLs. He does have some orthostatic blood pressure changes, will defer to Dr. Robertson. REVIEW OF SYSTEMS: Impaired ambulation with walker. Some shortness of breath. No CV, , GI, eye system symptoms on review. MENTAL STATUS EXAM: Oriented to himself and situation. Speech has some latency, coherent. Abstraction fair, computation impaired, language function intact, attention span short. Mood and affect is improved. LABORATORY DATA: Reviewed. IMPRESSION: Unchanged from initial note. PLAN: The patient's absolute neutrophil count is within normal limits and we will increase his Clozaril from 100 mg at bedtime to 125 mg p.o. at bedtime. Rest unchanged. MAN Villa REED MD DR: CRYSTAL/nicole JOB#: [id number] / [id number]
[2018-11-28 16:08] VITALS: BP 127/80
--- NOTE | 2018-11-28 17:25 | RAD ---
EXAM: PA and Lateral Views of the Chest DATE: 11/28/2018 10:43 AM INDICATION: Screen for lungs, prerequisite for new facility COMPARISON: No Prior FINDINGS: The heart is not enlarged. Mediastinal and hilar contours are normal. Left lung base parenchymal airspace opacities are seen. Mild emphysematous change is suggested. No pleural effusion or pneumothorax. IMPRESSION: Patchy opacities in the left lung base may represent developing consolidative process or atelectasis. Electronically signed by: Manuel Hays MD (11/28/2018 5:22 PM) [facility]
[2018-11-28] MEDS: ATORVASTATIN CALCIUM 20 MG TABLET PO SCH (20:38)
[2018-11-28] MEDS: cloZAPine 100 MG TABLET PO SCH (20:38)
[2018-11-28] MEDS: cloZAPine 25 MG TABLET PO SCH (20:39)
[2018-11-28] MEDS: LATANOPROST 0.005% OPHTH SOLUTION 2.5ML BOTTLE. OS SCH (20:41)
[2018-11-28] MEDS ORDERED: OLANZapine 5 MG TABLET PO SCH (21:00)
--- NOTE | 2018-11-28 22:01 | PDOC ---
Exam Note: Shahram Note: Please also refer to the separate dictated note~for this date of service dictated separately.~Patient seen individually. Discussed the patient with Nursing staff reviewed the chart.~Reviewed interim history and current functioning. Reviewed vital signs,~Labs/ Radiology~and current medications noted below. Continue current treatment with the changes noted in the dictated addendum note Assessment: Vital Signs: Vital Signs Date Time Temp Pulse Resp B/P (MAP) Pulse Ox O2 Delivery O2 Flow Rate FiO2 11/28/18 16:08 97.5 67 20 127/80 (96) 100 Room Air I&O Intake and Output 11/28/18 06:59 Intake Total 1200 ml Output Total 1900 ml Balance -700 ml Intake Oral 1200 ml Output Urine Total 1900 ml Current Medications: Meds: Current Medications Acetaminophen (Tylenol) 650 mg PRN Q6HRS PRN PO PAIN / TEMP; Start 11/16/18 at 20:15 Non-Formulary Medication (Clozapine ) 75 mg QHS PO ; Start 11/16/18 at 21:00; Stop 11/16/18 at 21:01; Status DC Paroxetine HCl (Paxil) 20 mg DAILY PO Last administered on 11/28/18at 07:49; Start 11/17/18 at 09:00 Trazodone HCl (Desyrel) 50 mg PRN QHS PRN PO INSOMNIA; Start 11/16/18 at 21:00 Atorvastatin Calcium (Lipitor) 20 mg QHS PO Last administered on 11/28/18at 20:38 ; Start 11/16/18 at 21:00 Vitamin D (Vitamin D3) 50,000 unit WEEKLY PO Last administered on 11/23/18at 07: 26; Start 11/23/18 at 09:00 Lisinopril (Prinivil) 10 mg DAILY PO Last administered on 11/24/18at 07:50; Start 11/17/18 at 09:00; Stop 11/24/18 at 15:53; Status DC Metoprolol Succinate (Toprol Xl) 25 mg DAILY PO Last administered on 11/24/18at 07:54; Start 11/17/18 at 09:00; Stop 11/24/18 at 15:53; Status DC Tamsulosin HCl (Flomax) 0.4 mg DAILY PO Last administered on 11/17/18at 08:11; Start 11/17/18 at 09:00; Stop 11/17/18 at 17:42; Status DC Acetaminophen (Tylenol) 650 mg PRN Q6HRS PRN PO PAIN / TEMP; Start 11/16/18 at 21:15; Status Cancel Aspirin (Children'S Aspirin) 81 mg DAILYWBKFT PO Last administered on 11/28/18 07:50; Start 11/17/18 at 08:00 Docusate Sodium (Colace) 100 mg BID PO Last administered on 11/28/18 20:39; Start 11/16/18 at 21:15 Lactobacillus Rhamnosus (Culturelle) 1 cap BID PO Last administered on 20:38; Start 11/16/18 at 21:30 Latanoprost (Xalatan) 1 drop QHS OS Last administered on 11/28/18 20:41; Start 11/16/18 at 21:30 Levetiracetam (Keppra) 500 mg BID PO Last administered on 11/28/18 20:39; Start 11/16/18 at 21:30 Levofloxacin (Levaquin) 750 mg DAILY06 PO Last administered on 11/25/18 06:23; Start 11/17/18 at 06:00; Stop 11/25/18 at 06:44; Status DC Al Hydroxide/Mg Hydroxide (Mylanta Plus Xs) 15 ml PRN AFTMEALHC PRN PO DYSPEPSIA; Start 11/16/18 at 21:15 Magnesium Hydroxide (Milk Of Magnesia) 2,400 mg PRN QHS PRN PO CONSTIPATION; Start 11/16/18 at 21:15 Pantoprazole Sodium (Protonix) 40 mg DAILY06 PO Last administered on 11/28/18 05:33; Start 11/17/18 at 06:00 Polyethylene Glycol (miraLAX) 17 gm DAILY PO Last administered on 11/28/18 07: 52; Start 11/17/18 at 09:00 Sennosides (Senna) 8.6 mg DAILY PO Last administered on 11/28/18 07:52; Start 11/17/18 at 09:00 Sucralfate (Carafate) 1 gm QIDACHS PO Last administered on 11/28/18 20:41; Start 11/16/18 at 21:30 Timolol Maleate (Timoptic 0.5% Oph) 1 drop BID OU Last administered on 20:38; Start 11/16/18 at 21:30 Chlorpromazine HCl (Thorazine) 25 mg TIDWMEALS PO Last administered on 20:41; Start 11/17/18 at 08:00 Chlorpromazine HCl (Thorazine) 100 mg HS PO Last administered on 11/28/18 20:52 ; Start 11/16/18 at 21:30 Olanzapine (ZyPREXA) 5 mg BID PO Last administered on 11/28/18 07:49; Start at 21:30; Stop 11/28/18 at 16:51; Status DC Clozapine (Clozaril) 75 mg HS PO Last administered on 11/19/18 20:34; Start at 21:00; Stop 11/20/18 at 18:35; Status DC Lorazepam (Ativan) 0.25 mg PRN Q2HR PRN PO ANXIETY / AGITATION Last administered on 11/18/18 08:00; Start 11/17/18 at 13:00 Tamsulosin HCl (Flomax) 0.8 mg DAILY PO Last administered on 11/28/18 07:50; Start 11/18/18 at 09:00 Clozapine (Clozaril) 100 mg HS PO Last administered on 11/26/18 19:59; Start at 21:00; Stop 11/27/18 at 19:13; Status DC Lisinopril (Prinivil) 5 mg DAILY PO Last administered on 11/27/18 08:23; Start 11/25/18 at 09:00; Stop 11/27/18 at 16:41; Status DC Metoprolol Succinate (Toprol Xl) 12.5 mg DAILY PO Last administered on 07:51; Start 11/25/18 at 09:00 Clozapine (Clozaril) 100 mg HS PO Last administered on 11/28/18 20:38; Start at 21:00 Clozapine (Clozaril) 25 mg QHS PO Last administered on 11/28/18 20:39; Start at 21:00 Olanzapine (ZyPREXA) 5 mg QHS PO Last administered on 11/28/18at 20:39; Start 11/28/18 at 21:00; Stop 12/05/18 at 21:00 Active Scripts Active Levaquin (Levofloxacin) 750 Mg Tablet 1 Tab PO DAILY 7 Days Reported Culturelle (Lactobacillus Rhamnosus Gg) 1 Each Capsule 1 Each PO BID Protonix (Pantoprazole Sodium) 40 Mg Tablet.dr 40 Mg PO DAILY06 Analgesic [place] (Methyl Salicylate/Menthol) 28 Gm Oint...g. 1 Jose Elais TP PRN QID PRN D3-50 (Cholecalciferol (Vitamin D3)) 50,000 Unit Capsule 50,000 Unit PO WEEKLY Milk Of Magnesia (Magnesium Hydroxide) 2,400 Mg/10 Ml Oral.susp 2,400 Mg PO QHS PRN Maalox Advanced Suspension (Mag Hydrox/Aluminum Hyd/Simeth) 355 Ml Oral.susp 15 Ml PO PRN AFTMEAL PRN Ativan (Lorazepam) 1 Mg Tablet 0.5 Mg PO Q2HR PRN MDD 2mg/24 hours Acetaminophen 500 Mg Tablet 650 Mg PO Q6HRS PRN Clozapine 100 Mg Tablet 75 Mg PO QHS Trazodone Hcl 50 Mg Tablet 50 Mg PO PRN QHS PRN Timoptic (Timolol Maleate) 10 Ml Drops 1 Drop EACHEYE BID Tamsulosin Hcl 0.4 Mg Cap.er.24h 0.4 Mg PO DAILY Carafate (Sucralfate) 1 Gm Tablet 1 Gm PO QIDACHS Senna (Sennosides) 8.6 Mg Tablet 8.6 Mg PO DAILY Miralax (Polyethylene Glycol 3350) 17 Gm Powd.pack 1 Packet PO DAILY Paxil (Paroxetine Hcl) 20 Mg Tablet 20 Mg PO DAILY Olanzapine 5 Mg Tablet 5 Mg PO BID Toprol Xl (Metoprolol Succinate) 25 Mg Tab.er.24h 25 Mg PO DAILY Lisinopril 10 Mg Tablet 10 Mg PO DAILY Keppra (Levetiracetam) 500 Mg Tablet 500 Mg PO BID Latanoprost 2.5 Ml Drops 1 Drop OS QHS Docusate Sodium 100 Mg Capsule 100 Mg PO BID Chlorpromazine Hcl 100 Mg Tablet 100 Mg PO HS Chlorpromazine Hcl 25 Mg Tablet 25 Mg PO TIDWMEALS Lipitor (Atorvastatin Calcium) 20 Mg Tablet 20 Mg PO QHS Aspirin 81 Mg Tab.chew 81 Mg PO DAILY I have reviewed the current psychotropics carefully including drug interactions. Risk benefit ratio favors no change other than as noted in my dictated progress note. Diagnosis: Problems: (1) UTI (urinary tract infection) due to urinary indwelling catheter (2) Anxiety disorder (3) Bipolar affective disorder, mixed (4) Major depressive disorder, recurrent episode (5) Mild cognitive impairment ANASTACIO REED MD Nov 28, 2018 22:01
[2018-11-28] MEDS ORDERED: CLOZ25TA PO (23:24)
[2018-11-29 05:38] VITALS: BP 111/70
[2018-11-29] MEDS ORDERED: PANTOPRAZOLE 40 MG TABLET. PO SCH (07:30)
[2018-11-29] MEDS: SUCRALFATE 1 GM TABLET. PO SCH ×2 (07:37→12:07)
[2018-11-29] MEDS: DOCUSATE SODIUM 100 MG CAPSULE PO SCH (08:46)
[2018-11-29] MEDS: ASPIRIN 81 MG TAB.CHEW PO SCH (08:46)
[2018-11-29] MEDS: levETIRAcetam 500 MG TABLET PO SCH (08:47)
[2018-11-29] MEDS: PARoxetine 20 MG TABLET PO SCH (09:21)
[2018-11-29] MEDS: TAMSULOSIN 0.4 MG CAP.ER.24H. PO SCH (09:21)
[2018-11-29] MEDS: SENNOSIDES 8.6 MG TABLET PO SCH (09:21)
[2018-11-29 09:25] VITALS: BP 111/70
[2018-11-29] MEDS: LACTOBACILLUS RHAMNOSUS GG 1 CAPSULE. PO SCH (09:25)
[2018-11-29] MEDS: POLYETHYLENE GLYCOL 3350 17 GM PACKET. PO SCH (09:25)
[2018-11-29] MEDS: METOPROLOL SUCC 24HR ER 25 MG TAB.ER.24H. PO SCH (09:25)
[2018-11-29] MEDS: TIMOLOL 0.5% OPHTH SOLUTION 5ML BOTTLE. OU SCH (09:26)
[2018-11-29] MEDS: chlorproMAZINE HCL 25 MG TABLET PO SCH (12:07)
--- NOTE | 2018-11-29 19:29 | PN ---
DATE: 11/28/2018 PSYCHIATRIC PROGRESS NOTE This late entry 11/28/2018 covers elements not covered in my initial note. SUBJECTIVE: I met with the patient in the evening. The patient slept 7-1/4 hours previous night. He did cooperate with occupational therapy. Complains of being tired and we will go ahead and reduce the Zyprexa from 5 mg b.i.d. to 5 mg at bedtime for 7 days and stop it since he is also on Thorazine and Clozaril, the latter having been increased. REVIEW OF SYSTEMS: Shortness of breath, impaired ambulation. No CV, , pulmonary, eye, ENT system symptoms on review. MENTAL STATUS EXAM: Oriented to himself and situation. Speech moderate latency, often responses monosyllabic. Abstraction fair, computation impaired, language function intact, attention span short. Mood and affect somewhat withdrawn. LABORATORY DATA: Reviewed. IMPRESSION: Unchanged from initial note, bipolar 1 disorder, mixed with psychotic features. Rest unchanged. PLAN: Taper and stop the Zyprexa as above. Absolute neutrophil count is unremarkable and we have increased the Clozaril to 125 mg p.o. at bedtime. [facility], perhaps the Thorazine could be reduced as well as the Clozaril is further increased. MAN Villa REED MD DR: CRYSTAL/nicole JOB#: [id number] / [id number]
--- NOTE | 2018-11-29 22:05 | PDOC ---
Exam Note: Shahram Note: Please also refer to the separate dictated note~for this date of service dictated separately.~Patient seen individually. Discussed the patient with Nursing staff reviewed the chart.~Reviewed interim history and current functioning. Reviewed vital signs,~Labs/ Radiology~and current medications noted below. Continue current treatment with the changes noted in the dictated addendum note Assessment: Vital Signs: Vital Signs Date Time Temp Pulse Resp B/P (MAP) Pulse Ox O2 Delivery O2 Flow Rate FiO2 11/29/18 09:25 71 111/70 11/29/18 05:38 97.7 20 97 11/28/18 16:08 Room Air I&O Intake and Output 11/29/18 06:59 Intake Total 1200 ml Output Total 2700 ml Balance -1500 ml Intake Oral 1200 ml Output Urine Total 2700 ml Current Medications: Meds: Current Medications Acetaminophen (Tylenol) 650 mg PRN Q6HRS PRN PO PAIN / TEMP; Start 11/16/18 at 20:15; Stop 11/29/18 at 13:18; Status DC Non-Formulary Medication (Clozapine ) 75 mg QHS PO ; Start 11/16/18 at 21:00; Stop 11/16/18 at 21:01; Status DC Paroxetine HCl (Paxil) 20 mg DAILY PO Last administered on 11/29/18at 09:21; Start 11/17/18 at 09:00; Stop 11/29/18 at 13:18; Status DC Trazodone HCl (Desyrel) 50 mg PRN QHS PRN PO INSOMNIA; Start 11/16/18 at 21:00 ; Stop 11/29/18 at 13:18; Status DC Atorvastatin Calcium (Lipitor) 20 mg QHS PO Last administered on 11/28/18at 20:38 ; Start 11/16/18 at 21:00; Stop 11/29/18 at 13:18; Status DC Vitamin D (Vitamin D3) 50,000 unit WEEKLY PO Last administered on 11/23/18at 07: 26; Start 11/23/18 at 09:00; Stop 11/29/18 at 13:18; Status DC Lisinopril (Prinivil) 10 mg DAILY PO Last administered on 11/24/18at 07:50; Start 11/17/18 at 09:00; Stop 11/24/18 at 15:53; Status DC Metoprolol Succinate (Toprol Xl) 25 mg DAILY PO Last administered on 11/24/18at 07:54; Start 11/17/18 at 09:00; Stop 11/24/18 at 15:53; Status DC Tamsulosin HCl (Flomax) 0.4 mg DAILY PO Last administered on 11/17/18at 08:11; Start 11/17/18 at 09:00; Stop 11/17/18 at 17:42; Status DC Acetaminophen (Tylenol) 650 mg PRN Q6HRS PRN PO PAIN / TEMP; Start 11/16/18 at 21:15; Status Cancel Aspirin (Children'S Aspirin) 81 mg DAILYWBKFT PO Last administered on 11/29/18at 08:46; Start 11/17/18 at 08:00; Stop 11/29/18 at 13:18; Status DC Docusate Sodium (Colace) 100 mg BID PO Last administered on 11/29/18at 08:46; Start 11/16/18 at 21:15; Stop 11/29/18 at 13:18; Status DC Lactobacillus Rhamnosus (Culturelle) 1 cap BID PO Last administered on at 09:25; Start 11/16/18 at 21:30; Stop 11/29/18 at 13:18; Status DC Latanoprost (Xalatan) 1 drop QHS OS Last administered on 11/28/18at 20:41; Start 11/16/18 at 21:30; Stop 11/29/18 at 13:18; Status DC Levetiracetam (Keppra) 500 mg BID PO Last administered on 11/29/18at 08:47; Start 11/16/18 at 21:30; Stop 11/29/18 at 13:18; Status DC Levofloxacin (Levaquin) 750 mg DAILY06 PO Last administered on 11/25/18at 06:23; Start 11/17/18 at 06:00; Stop 11/25/18 at 06:44; Status DC Al Hydroxide/Mg Hydroxide (Mylanta Plus Xs) 15 ml PRN AFTMEALHC PRN PO DYSPEPSIA; Start 11/16/18 at 21:15; Stop 11/29/18 at 13:18; Status DC Magnesium Hydroxide (Milk Of Magnesia) 2,400 mg PRN QHS PRN PO CONSTIPATION; Start 11/16/18 at 21:15; Stop 11/29/18 at 13:18; Status DC Pantoprazole Sodium (Protonix) 40 mg DAILY06 PO Last administered on 11/28/18 05:33; Start 11/17/18 at 06:00; Stop 11/29/18 at 03:14; Status DC Polyethylene Glycol (miraLAX) 17 gm DAILY PO Last administered on 11/29/18 09: 25; Start 11/17/18 at 09:00; Stop 11/29/18 at 13:18; Status DC Sennosides (Senna) 8.6 mg DAILY PO Last administered on 11/29/18 09:21; Start 11/17/18 at 09:00; Stop 11/29/18 at 13:18; Status DC Sucralfate (Carafate) 1 gm QIDACHS PO Last administered on 11/29/18 12:07; Start 11/16/18 at 21:30; Stop 11/29/18 at 13:18; Status DC Timolol Maleate (Timoptic 0.5% [facility]) 1 drop BID OU Last administered on 09:26; Start 11/16/18 at 21:30; Stop 11/29/18 at 13:18; Status DC Chlorpromazine HCl (Thorazine) 25 mg TIDWMEALS PO Last administered on 12:07; Start 11/17/18 at 08:00; Stop 11/29/18 at 13:18; Status DC Chlorpromazine HCl (Thorazine) 100 mg HS PO Last administered on 11/28/18 20:52 ; Start 11/16/18 at 21:30; Stop 11/29/18 at 13:18; Status DC Olanzapine (ZyPREXA) 5 mg BID PO Last administered on 11/28/18 07:49; Start at 21:30; Stop 11/28/18 at 16:51; Status DC Clozapine (Clozaril) 75 mg HS PO Last administered on 11/19/18 20:34; Start at 21:00; Stop 11/20/18 at 18:35; Status DC Lorazepam (Ativan) 0.25 mg PRN Q2HR PRN PO ANXIETY / AGITATION Last administered on 11/18/18 08:00; Start 11/17/18 at 13:00; Stop 11/29/18 at 13:18 ; Status DC Tamsulosin HCl (Flomax) 0.8 mg DAILY PO Last administered on 11/29/18 09:21; Start 11/18/18 at 09:00; Stop 11/29/18 at 13:18; Status DC Clozapine (Clozaril) 100 mg HS PO Last administered on 11/26/18 19:59; Start at 21:00; Stop 11/27/18 at 19:13; Status DC Lisinopril (Prinivil) 5 mg DAILY PO Last administered on 11/27/18 08:23; Start 11/25/18 at 09:00; Stop 11/27/18 at 16:41; Status DC Metoprolol Succinate (Toprol Xl) 12.5 mg DAILY PO Last administered on 09:25; Start 11/25/18 at 09:00; Stop 11/29/18 at 13:18; Status DC Clozapine (Clozaril) 100 mg HS PO Last administered on 11/28/18 20:38; Start at 21:00; Stop 11/29/18 at 13:18; Status DC Clozapine (Clozaril) 25 mg QHS PO Last administered on 11/28/18 20:39; Start at 21:00; Stop 11/29/18 at 13:18; Status DC Olanzapine (ZyPREXA) 5 mg QHS PO Last administered on 11/28/18 20:39; Start 11/28/18 at 21:00; Stop 11/29/18 at 13:18; Status DC Pantoprazole Sodium (Protonix) 40 mg DAILYAC PO Last administered on 11/29/18 07:38; Start 11/29/18 at 07:30; Stop 11/29/18 at 13:18; Status DC Active Scripts Active Reported Clozaril (Clozapine) 25 Mg Tablet 25 Mg PO HS Culturelle (Lactobacillus Rhamnosus Gg) 1 Each Capsule 1 Each PO BID Protonix (Pantoprazole Sodium) 40 Mg Tablet.dr 40 Mg PO DAILY06 Analgesic [place] (Methyl Salicylate/Menthol) 28 Gm Oint...g. 1 Jose Elias TP PRN QID PRN D3-50 (Cholecalciferol (Vitamin D3)) 50,000 Unit Capsule 50,000 Unit PO WEEKLY Milk Of Magnesia (Magnesium Hydroxide) 2,400 Mg/10 Ml Oral.susp 2,400 Mg PO QHS PRN Maalox Advanced Suspension (Mag Hydrox/Aluminum Hyd/Simeth) 355 Ml Oral.susp 15 Ml PO PRN AFTMEAL PRN Ativan (Lorazepam) 1 Mg Tablet 0.25 Mg PO Q2HR PRN MDD 2mg/24 hours Acetaminophen 500 Mg Tablet 650 Mg PO Q6HRS PRN Clozapine 100 Mg Tablet 100 Mg PO QHS Trazodone Hcl 50 Mg Tablet 50 Mg PO PRN QHS PRN Timoptic (Timolol Maleate) 10 Ml Drops 1 Drop EACHEYE BID Tamsulosin Hcl 0.4 Mg Cap.er.24h 0.4 Mg PO DAILY Carafate (Sucralfate) 1 Gm Tablet 1 Gm PO QIDACHS Senna (Sennosides) 8.6 Mg Tablet 8.6 Mg PO DAILY Miralax (Polyethylene Glycol 3350) 17 Gm Powd.pack 1 Packet PO DAILY Paxil (Paroxetine Hcl) 20 Mg Tablet 20 Mg PO DAILY Olanzapine 5 Mg Tablet 5 Mg PO HS 7 Days Toprol Xl (Metoprolol Succinate) 25 Mg Tab.er.24h 12.5 Mg PO DAILY Keppra (Levetiracetam) 500 Mg Tablet 500 Mg PO BID Latanoprost 2.5 Ml Drops 1 Drop OS QHS Docusate Sodium 100 Mg Capsule 100 Mg PO BID Chlorpromazine Hcl 25 Mg Tablet 25 Mg PO TIDWMEALS Lipitor (Atorvastatin Calcium) 20 Mg Tablet 20 Mg PO QHS Aspirin 81 Mg Tab.chew 81 Mg PO DAILY I have reviewed the current psychotropics carefully including drug interactions. Risk benefit ratio favors no change other than as noted in my dictated progress note. Diagnosis: Problems: (1) UTI (urinary tract infection) due to urinary indwelling catheter (2) Anxiety disorder (3) Bipolar affective disorder, mixed (4) Major depressive disorder, recurrent episode (5) Mild cognitive impairment ANASTACIO REED MD Nov 29, 2018 22:05
--- NOTE | 2018-12-01 13:17 | DS ---
DATE OF DISCHARGE: 11/29/2018 DISCHARGE SUMMARY/PSYCHIATRIC PROGRESS NOTE This late entry 11/29/2018 covers elements not covered in my initial note. REASON FOR ADMISSION: Please refer to the admission history for details. Briefly, the patient is a 68-year-old male referred to us with a significant history of bipolar disorder, mixed with psychotic features. He was having marked mood swings, unable to function at home, very depressed, having multiple somatic complaints. He had failed outpatient psychiatric interventions resulting in this referral. SIGNIFICANT FINDINGS AND CLINICAL COURSE: Following admission, the patient was seen daily individually by myself from a psychiatric standpoint, medical followup with Dr. Robertson. The patient was extremely anxious, labile, paranoid. Adjustments were made in his psychotropics and he seemed to respond to a combination of Clozaril 125 mg p.o. at bedtime, which was increased gradually along with Ativan p.r.n., Paxil 20 mg a day, Thorazine 25 mg t.i.d. with meals 100 mg at bedtime, Zyprexa 5 mg at bedtime, trazodone 50 mg at bedtime p.r.n. The plan is that the patient should ultimately be only on 1 atypical antipsychotic and Thorazine could be reduced by 25 mg a day, starting in about 30 days and reduce by another 25 mg a day a month later and yet another 25 mg a day reduction a month after that. If the patient continues to be stable on the Clozaril at that time, Zyprexa can be reduced from 5 mg at bedtime to 2.5 mg at bedtime for a month and then discontinued. Overall, the patient did much better, was much less anxious, paranoid, less depressed. He had nevertheless multiple somatic symptoms, which were addressed per Dr. Robertson prior to discharge, 11/29/2018. REVIEW OF SYSTEMS: Ambulation impaired, shortness of breath. No CV, , eye system symptoms on review. MENTAL STATUS EXAM: Reasonably oriented. Speech is coherent, abstraction fair, computation impaired, language function intact, attention span short. Mood and affect somewhat withdrawn. LABORATORY DATA: Reviewed. FINAL DIAGNOSES: Bipolar 1 disorder, mixed with psychotic features; anxiety disorder, unspecified; impulse control disorder, unspecified; major depressive disorder with psychotic features. Rest unchanged from admission. DISCHARGE MEDICATIONS: Please refer to the MRAD. DISCHARGE INSTRUCTIONS: Outpatient psychiatric and medical followup at the long term. MAN Villa REED MD DR: CRYSTAL/nicole JOB#: [id number] / [id number]
--- NOTE | 2018-12-11 19:06 | PDOC ---
PROGRESS NOTES Assessment I was off from 12/02 to 12/11. On return today I found labs in my box done 11/30 for pt at assisted living showing critical ANC for this pt on Clozaril ( when he discharged from here). I requested Deysi RN to call assisted living and Deysi informed patient's nurse to contact pts PCP immediately and /or take pt to ER for critical ANC.Pt is not under my care since he was discharged from here. Review of Relevant I have reviewed the following items lena (where applicable) has been applied. Medications Current Medications Acetaminophen (Tylenol) 650 mg PRN Q6HRS PRN PO PAIN / TEMP; Start 11/16/18 at 20:15; Stop 11/29/18 at 13:18; Status DC Non-Formulary Medication (Clozapine ) 75 mg QHS PO ; Start 11/16/18 at 21:00; Stop 11/16/18 at 21:01; Status DC Paroxetine HCl (Paxil) 20 mg DAILY PO Last administered on 11/29/18at 09:21; Start 11/17/18 at 09:00; Stop 11/29/18 at 13:18; Status DC Trazodone HCl (Desyrel) 50 mg PRN QHS PRN PO INSOMNIA; Start 11/16/18 at 21:00 ; Stop 11/29/18 at 13:18; Status DC Atorvastatin Calcium (Lipitor) 20 mg QHS PO Last administered on 11/28/18at 20:38 ; Start 11/16/18 at 21:00; Stop 11/29/18 at 13:18; Status DC Vitamin D (Vitamin D3) 50,000 unit WEEKLY PO Last administered on 11/23/18at 07: 26; Start 11/23/18 at 09:00; Stop 11/29/18 at 13:18; Status DC Lisinopril (Prinivil) 10 mg DAILY PO Last administered on 11/24/18at 07:50; Start 11/17/18 at 09:00; Stop 11/24/18 at 15:53; Status DC Metoprolol Succinate (Toprol Xl) 25 mg DAILY PO Last administered on 11/24/18at 07:54; Start 11/17/18 at 09:00; Stop 11/24/18 at 15:53; Status DC Tamsulosin HCl (Flomax) 0.4 mg DAILY PO Last administered on 11/17/18 08:11; Start 11/17/18 at 09:00; Stop 11/17/18 at 17:42; Status DC Acetaminophen (Tylenol) 650 mg PRN Q6HRS PRN PO PAIN / TEMP; Start 11/16/18 at 21:15; Status Cancel Aspirin (Children'S Aspirin) 81 mg DAILYWBKFT PO Last administered on 11/29/18 08:46; Start 11/17/18 at 08:00; Stop 11/29/18 at 13:18; Status DC Docusate Sodium (Colace) 100 mg BID PO Last administered on 11/29/18 08:46; Start 11/16/18 at 21:15; Stop 11/29/18 at 13:18; Status DC Lactobacillus Rhamnosus (Culturelle) 1 cap BID PO Last administered on 09:25; Start 11/16/18 at 21:30; Stop 11/29/18 at 13:18; Status DC Latanoprost (Xalatan) 1 drop QHS OS Last administered on 11/28/18 20:41; Start 11/16/18 at 21:30; Stop 11/29/18 at 13:18; Status DC Levetiracetam (Keppra) 500 mg BID PO Last administered on 11/29/18 08:47; Start 11/16/18 at 21:30; Stop 11/29/18 at 13:18; Status DC Levofloxacin (Levaquin) 750 mg DAILY06 PO Last administered on 11/25/18 06:23; Start 11/17/18 at 06:00; Stop 11/25/18 at 06:44; Status DC Al Hydroxide/Mg Hydroxide (Mylanta Plus Xs) 15 ml PRN AFTMEALHC PRN PO DYSPEPSIA; Start 11/16/18 at 21:15; Stop 11/29/18 at 13:18; Status DC Magnesium Hydroxide (Milk Of Magnesia) 2,400 mg PRN QHS PRN PO CONSTIPATION; Start 11/16/18 at 21:15; Stop 11/29/18 at 13:18; Status DC Pantoprazole Sodium (Protonix) 40 mg DAILY06 PO Last administered on 11/28/18at 05:33; Start 11/17/18 at 06:00; Stop 11/29/18 at 03:14; Status DC Polyethylene Glycol (miraLAX) 17 gm DAILY PO Last administered on 11/29/18 09: 25; Start 11/17/18 at 09:00; Stop 11/29/18 at 13:18; Status DC Sennosides (Senna) 8.6 mg DAILY PO Last administered on 11/29/18 09:21; Start 11/17/18 at 09:00; Stop 11/29/18 at 13:18; Status DC Sucralfate (Carafate) 1 gm QIDACHS PO Last administered on 11/29/18 12:07; Start 11/16/18 at 21:30; Stop 11/29/18 at 13:18; Status DC Timolol Maleate (Timoptic 0.5% Ophth) 1 drop BID OU Last administered on 09:26; Start 11/16/18 at 21:30; Stop 11/29/18 at 13:18; Status DC Chlorpromazine HCl (Thorazine) 25 mg TIDWMEALS PO Last administered on 12:07; Start 11/17/18 at 08:00; Stop 11/29/18 at 13:18; Status DC Chlorpromazine HCl (Thorazine) 100 mg HS PO Last administered on 11/28/18 20:52 ; Start 11/16/18 at 21:30; Stop 11/29/18 at 13:18; Status DC Olanzapine (ZyPREXA) 5 mg BID PO Last administered on 11/28/18 07:49; Start at 21:30; Stop 11/28/18 at 16:51; Status DC Clozapine (Clozaril) 75 mg HS PO Last administered on 11/19/18 20:34; Start at 21:00; Stop 11/20/18 at 18:35; Status DC Lorazepam (Ativan) 0.25 mg PRN Q2HR PRN PO ANXIETY / AGITATION Last administered on 11/18/18 08:00; Start 11/17/18 at 13:00; Stop 11/29/18 at 13:18 ; Status DC Tamsulosin HCl (Flomax) 0.8 mg DAILY PO Last administered on 11/29/18 09:21; Start 11/18/18 at 09:00; Stop 11/29/18 at 13:18; Status DC Clozapine (Clozaril) 100 mg HS PO Last administered on 11/26/18 19:59; Start at 21:00; Stop 11/27/18 at 19:13; Status DC Lisinopril (Prinivil) 5 mg DAILY PO Last administered on 11/27/18 08:23; Start 11/25/18 at 09:00; Stop 11/27/18 at 16:41; Status DC Metoprolol Succinate (Toprol Xl) 12.5 mg DAILY PO Last administered on 09:25; Start 11/25/18 at 09:00; Stop 11/29/18 at 13:18; Status DC Clozapine (Clozaril) 100 mg HS PO Last administered on 11/28/18 20:38; Start at 21:00; Stop 11/29/18 at 13:18; Status DC Clozapine (Clozaril) 25 mg QHS PO Last administered on 11/28/18 20:39; Start at 21:00; Stop 11/29/18 at 13:18; Status DC Olanzapine (ZyPREXA) 5 mg QHS PO Last administered on 11/28/18 20:39; Start 11/28/18 at 21:00; Stop 11/29/18 at 13:18; Status DC Pantoprazole Sodium (Protonix) 40 mg DAILYAC PO Last administered on 11/29/18 07:38; Start 11/29/18 at 07:30; Stop 11/29/18 at 13:18; Status DC Active Scripts Active Reported Clozaril (Clozapine) 25 Mg Tablet 25 Mg PO HS Culturelle (Lactobacillus Rhamnosus Gg) 1 Each Capsule 1 Each PO BID Protonix (Pantoprazole Sodium) 40 Mg Tablet.dr 40 Mg PO DAILY06 Analgesic Buhl (Methyl Salicylate/Menthol) 28 Gm Oint...g. 1 Jose Elias TP PRN QID PRN D3-50 (Cholecalciferol (Vitamin D3)) 50,000 Unit Capsule 50,000 Unit PO WEEKLY Milk Of Magnesia (Magnesium Hydroxide) 2,400 Mg/10 Ml Oral.susp 2,400 Mg PO QHS PRN Maalox Advanced Suspension (Mag Hydrox/Aluminum Hyd/Simeth) 355 Ml Oral.susp 15 Ml PO PRN AFTMEAL PRN Ativan (Lorazepam) 1 Mg Tablet 0.25 Mg PO Q2HR PRN MDD 2mg/24 hours Acetaminophen 500 Mg Tablet 650 Mg PO Q6HRS PRN Clozapine 100 Mg Tablet 100 Mg PO QHS Trazodone Hcl 50 Mg Tablet 50 Mg PO PRN QHS PRN Timoptic (Timolol Maleate) 10 Ml Drops 1 Drop EACHEYE BID Tamsulosin Hcl 0.4 Mg Cap.er.24h 0.4 Mg PO DAILY Carafate (Sucralfate) 1 Gm Tablet 1 Gm PO QIDACHS Senna (Sennosides) 8.6 Mg Tablet 8.6 Mg PO DAILY Miralax (Polyethylene Glycol 3350) 17 Gm Powd.pack 1 Packet PO DAILY Paxil (Paroxetine Hcl) 20 Mg Tablet 20 Mg PO DAILY Olanzapine 5 Mg Tablet 5 Mg PO HS 7 Days Toprol Xl (Metoprolol Succinate) 25 Mg Tab.er.24h 12.5 Mg PO DAILY Keppra (Levetiracetam) 500 Mg Tablet 500 Mg PO BID Latanoprost 2.5 Ml Drops 1 Drop OS QHS Docusate Sodium 100 Mg Capsule 100 Mg PO BID Chlorpromazine Hcl 25 Mg Tablet 25 Mg PO TIDWMEALS Lipitor (Atorvastatin Calcium) 20 Mg Tablet 20 Mg PO QHS Aspirin 81 Mg Tab.chew 81 Mg PO DAILY ANASTACIO REED MD Dec 11, 2018 19:06
== END 2018-11-29 13:05 | DRG 885 ==
LOC: GEROPSY 18:47
PROVIDERS: ADMIT Psychiatry & Neurology Psychiatry; ATTEND Psychiatry & Neurology Psychiatry
DX: F31.64 Bipolar disorder, current episode mixed, severe, with psychotic features (principal); N39.0 Urinary tract infection, site not specified; T83.518A Infection and inflammatory reaction due to other urinary catheter, initial encounter; G31.84 Mild cognitive impairment of uncertain or unknown etiology; F63.9 Impulse disorder, unspecified; F41.9 Anxiety disorder, unspecified; Y84.6 Urinary catheterization as the cause of abnormal reaction of the patient, or of later complication, without mention of misadventure at the time of the procedure; G89.29 Other chronic pain; K59.09 Other constipation; E78.5 Hyperlipidemia, unspecified; G47.30 Sleep apnea, unspecified; I10 Essential (primary) hypertension; I25.10 Atherosclerotic heart disease of native coronary artery without angina pectoris; K21.9 Gastro-esophageal reflux disease without esophagitis; Z88.1 Allergy status to other antibiotic agents; Z79.899 Other long term (current) drug therapy; Z95.1 Presence of aortocoronary bypass graft
CPT/HCPCS: 36415; 71046; 80053; 85025; Q0161; 92610; 97110; 97530; 97535